=== PATIENT | female | born 1955 | race Caucasian/White ===

== ENCOUNTER 2024-07-11 14:22 | Outpatient (OUT) | payer OTHER, SELFPAY ==
--- NOTE | 2024-07-11 | XR_ITS ---
[address] [address] Patient Name: TRENTON DONOVAN MRN: [id number] date: 1955 Sex: F Assigned Patient Location: [facility] Current Patient Location: [facility] Accession/Order Number: [id number] Exam Date: 07/11/2024 15:00 Report Date: 07/11/2024 16:13 At the request of: WYATT DELGADO Procedure: XR DEXA axial skeleton EXAMINATION: XR DEXA axial skeleton HISTORY: Estrogen deficiency E28.39 COMPARISON: DEXA bone densitometry 07/24/2021 TECHNIQUE: Dual-energy X-ray absorptiometry (DXA) was performed. FINDINGS: SPINE ANALYSIS: Average bone mineral density is 1.432 g/cm2. T-score (standard deviation relative to young adult mean): 2.1 . -11.4% change since prior study. HIP ANALYSIS: Lowest bone mineral density is within the right femoral neck, 0.923 g/cm2. T-score (standard deviation relative to young adult mean): -0.8 . -1.1% change since prior study. XR/XR DEXA axial skeleton IMPRESSION: World Health Organization Classification: Normal - Low Fracture Risk FRAX: Cannot calculate. Pharmacologic treatment recommendations * No uniform recommendation applies to all patients. Management plans must be individualized. * Consider initiating pharmacologic treatment in postmenopausal women and men >= 50 years of age who have the following: Primary fracture prevention: * T-score <= - 2.5 at the femoral neck, total hip, lumbar spine, 33% radius (some uncertainty with existing data) by DXA. * Low bone mass (osteopenia: T-score between - 1.0 and - 2.5) at the femoral neck or total hip by DXA with a 10-year hip fracture risk >= 3% or a 10-year major osteoporosis-related fracture risk >= 20% (i.e., clinical vertebral, hip, forearm, or proximal humerus) based on the US-adapted FRAXregistered model. Secondary fracture prevention: * Fracture of the hip or vertebra regardless of BMD [4, 5]. * Fracture of proximal humerus, pelvis, or distal forearm in persons with low bone mass (osteopenia: T-score between - 1.0 and - 2.5). The decision to treat should be individualized in persons with a fracture of the proximal humerus, pelvis, or distal forearm who do not have osteopenia or low BMD [12, 13]. Tom MS, Bren SL, Camila KL, Micky EM, Jany KG, AJ, Nicolle ES. The clinician's guide to prevention and treatment of osteoporosis. Osteoporos Int. 2021;33(10):7142-9677. doi: 10.1007/y11763-584-39254-i. Epub 2021Mar 04. Erratum in: Osteoporos Int. 2021Jun 03;: PMID: [id number]; PMCID: [id number]. Electronically authenticated by: ILA POST Date: 07/11/2024 16:13
--- NOTE | 2024-07-11 | MM_ITS ---
Patient Name: TRENTON DONOVAN MR#: [id number] : 1955 Exam Date: 07/11/2024 Ordering Doctor: DR WYATT ZAYAS RADIOLOGY REPORT PROCEDURE: MM TOMOSYNTHESIS SCREENING BI COMPARISON: MG MAMM SCREEN 3D VICTORINA CAD, 07/24/2021. MG MAMM SCREEN VICTORINA W CAD, 04/22/2020. MG MAMM SCREEN VICTORINA W CAD, 10/19/2018. MG MAMM VICTORINA SCRN W CAD DIG, 02/27/2016. INDICATIONS: Encounter for screening mammogram for neoplasm of breast Calculator Name NCI Breast Cancer Risk Assessment Tool 5 Year Breast Cancer Risk 3.20% Lifetime Breast Cancer Risk 10.10% Personal Breast Cancer No Personal Ovarian Cancer No Treatments None Family Cancers Mother with breast cancer at age 81; Aunt-maternal with lung cancer at age 70; Aunt-maternal with colon cancer at age 80; Grandmother-paternal with bone cancer at age 80. LOCATION: [facility] BREAST COMPOSITION: The breasts are heterogeneously dense,which may obscure small masses. FINDINGS: DIAGNOSTIC CATEGORY 2--BENIGN FINDING: RIGHT BREAST: No significant suspicious finding. Scattered benign-appearing calcifications are present. No significant change has occurred. LEFT BREAST: No significant suspicious finding. Stable chronic asymmetry may anterior upper-outer quadrant. No significant change has occurred. RECOMMENDATIONS: ROUTINE MAMMOGRAM AND CLINICAL EVALUATION IN 12 MONTHS. PLEASE NOTE: A NORMAL MAMMOGRAM DOES NOT EXCLUDE THE POSSIBILITY OF BREAST CANCER. A CLINICALLY SUSPICIOUS PALPABLE LUMP SHOULD BE BIOPSIED. Dictated by: Christiano Johnson M.D. on 07/13/2024 at 14:28 Approved by: Christiano Johnson M.D. on 07/13/2024 at 14:39
== END 2024-07-11 14:23 | disposition home or self-care (01) ==
LOC: MAMMO 14:22
PROVIDERS: PCP Family Medicine; Visit Provider Physician Assistant
DX: Z12.31 Encounter for screening mammogram for malignant neoplasm of breast (principal); E28.39 Other primary ovarian failure; Z80.3 Family history of malignant neoplasm of breast; Z80.1 Family history of malignant neoplasm of trachea, bronchus and lung; Z80.0 Family history of malignant neoplasm of digestive organs; Z80.8 Family history of malignant neoplasm of other organs or systems
CPT/HCPCS: 77063; 77067; 77080

== ENCOUNTER 2024-09-03 14:24 | Outpatient (OUT) | payer OTHER, SELFPAY ==
--- NOTE | 2024-09-03 14:32 | MR_ITS ---
The [address] [address] Patient Name: TRENTON DONOVAN MRN: [id number] date: 1955 Sex: F Assigned Patient Location: MRI Current Patient Location: Accession/Order Number: [id number] Exam Date: 09/03/2024 14:45 Report Date: 09/05/2024 06:02 At the request of: NON-STAFF PHYSICIAN Procedure: MR knee LT wo con EXAMINATION: MR knee LT wo con HISTORY: Left Knee Pain COMPARISON: No relevant comparison available. TECHNIQUE: A complete multi-planar MRI was performed. FINDINGS: MEDIAL COMPARTMENT MEDIAL MENISCUS: Undersurface tear of the posterior horn. CARTILAGE: No visible defect. BONES: No marrow pathology, fracture, or significant arthropathy. MCL AND MEDIAL CAPSULE: Grade I sprain of the medial collateral ligament. LATERAL COMPARTMENT LATERAL MENISCUS: No visible tear or significant degeneration. CARTILAGE: No visible defect. BONES: No marrow pathology, fracture, or significant arthropathy. LCL/POSTEROLAT COMPLEX: Normal lateral collateral ligament, fascicles, lateral capsule and ligaments. ANTERIOR COMPARTMENT PATELLA: No marrow pathology, fracture, or significant arthropathy. CARTILAGE: No visible defect. TENDONS: Normal. EFFUSION: None. No synovitis or loose bodies. ACL: Normal appearing ligament. PCL: Normal appearing ligament. MENISCOFEMORAL: Normal meniscofemoral ligaments. OTHER: Negative. MR/MR knee LT wo con IMPRESSION: 1. Medial meniscus posterior horn undersurface tear. 2. Mild strain of the medial collateral ligament. Electronically authenticated by: ILA POST Date: 09/05/2024 06:02
== END 2024-09-03 14:25 | disposition home or self-care (01) ==
LOC: MRI 14:25
PROVIDERS: PCP Family Medicine
DX: M25.562 Pain in left knee (principal); S83.242A Other tear of medial meniscus, current injury, left knee, initial encounter; S83.412A Sprain of medial collateral ligament of left knee, initial encounter
CPT/HCPCS: 73721

== ENCOUNTER 2025-05-11 21:23 | Emergency (ER) | payer MEDICARE, SELFPAY ==
[2025-05-11] VITALS (14 sets, daily range): BP systolic 156–196; BP diastolic 80–104; PULSE 57–64; TEMP 37.2; O2SAT 93–96; BMI 32.0
--- NOTE | 2025-05-11 21:30 | ECG_ITS ---
[facility] Test Date: 2025-05-11 Pat Name: TRENTON DONOVAN Department: Room: - Gender: Female Ferry Captain: : 1955 Requested By: [id number] Order Number: [id number] Reading MD: ABBY FRENCH M.D. Measurements Intervals [place] Rate: 63 P: 54 [place]: 170 QRS: -21 QRSD: 78 T: 54 QT: 428 QTc: 435 Interpretive Statements 1100 Sinus rhythm 3113 Cannot rule out anterior myocardial infarction, probably old 8102 Low QRS voltage in chest leads 9150 abnormal ECG No previous ECG available for comparison Electronically Signed On 05-12-2025 17:34:04 EDT by ABBY FRENCH M.D.
--- OUTSIDE RECORDS SUMMARY | 2025-05-11 21:32 | XMS_ITS | Clinical Summary ---
Author Organization [facility] Address [address] [place] [address] Phone Care Team Providers Care Box Covering Machine Operator Name Role Phone Favian Wyatt MD Primary Care Provider [phone]- [phone] Allergies Active Allergy Reactions Criticality Noted Date Comments Aripiprazole Other 04/16/2023 Brexpiprazole Other 06/04/2021 Tardive Dyskinesia Nalbuphine Other 12/24/2003 Nubain Medications meloxicam (Mobic) 15 mg tabletIndication s:Left knee pain, unspecified chronicity Take 1 tablet (15 mg) by mouth once daily with breakfast. 30 tablet 2 08/16/2024 Active Active Problems No known active problems Social History Tobacco Use Types Packs/Day Years Used Date Smoking Tobacco: Unknown Tobacco Cessation:Counseling Given: Not Answered Comments Unknown Sex and Gender Information Value Date Recorded Sex Assigned at Not on file Legal Sex Female 2:12 AM EST Gender Identity Not on file Sexual Orientation Not on file Plan of Treatment Health Maintenance Due Date Last Done Comments CT Colonography 1955 Lipid Panel 1955 Medicare Annual Wellness Visit (AWV) 1955 Sigmoidoscopy 1955 Diabetes Screening 02/14/1974 Hepatitis C Screening 02/14/1974 FIT 08/31/2019 08/31/2018 Mammogram 07/24/2022 07/24/2021, 04/07, 04/22/2020 DTaP/Tdap/Td Vaccines (2 - Td or Tdap) 09/25/2022 09/25/2012 COVID-19 Vaccine ( season) 2024 04/14/2022, 10/05/2021, 09/03/2021 Colonoscopy 04/04/2025 04/04/2015 Influenza Vaccine (#1) 2025 , 08/24/2022, 10/26/2021, Additional history exists Colorectal Cancer Screening 05/31/2026 FIT-DNA (Cologuard) 05/31/2026 05/31/2023 RSV High Risk: (Elderly (60+) or Population) (1 - 1-dose 75+ series) 02/14/2031 Bone Density Scan Completed 06/11/2021 Zoster Vaccines Completed 03/11/2022, 11/06/2021 Pneumococcal Vaccine Completed 10/27/2023, 09/26/2018, 09/08/2017 HIB Vaccines Aged Out No longer eligi ble based on patient's age to complete this topic HPV Vaccines (No Doses Required) Completed Hepatitis A Vaccines Aged Out No long er eligible based on patient's age to complete this topic Hepatitis B Vaccines Aged Out No long er eligible based on patient's age to complete this topic IPV Vaccines Aged Out No longer eligi ble based on patient's age to complete this topic Meningococcal Vaccine Aged Out No felicitas yeni eligible based on patient's age to complete this topic Rotavirus Vaccines Aged Out No longer eligible based on patient's age to complete this topic [address] [place] [address] [employer] Diff[employer] Diff[employer] Care Teams Box Covering Machine Operator Relationship Specialty Start Date End Date Favian Wyatt MD [address] [address] PCP - General Family Medicine 08/16/24
--- OUTSIDE RECORDS SUMMARY | 2025-05-11 21:32 | XMS_ITS | Encounter Summary ---
Author Organization [facility] Address [address] [place] [address] Care Team Providers Care Equipment Maint Tech Name Role Phone Favian Wyatt MD Primary Care Provider [phone] Gena Steward MD Unavailable + [phone] Source Comments In the event this information is protected by the Federal Confidentiality of Alcohol and Drug AbusePatient Records regulations: The Federal rules restrict any use of the information to criminally investigate or prosecute any alcohol or drug abuse patient.[facility] Encounter Details Date Type Department Care Team (Late st Contact Info) Description 12/13/2023 Patient Msg Otolaryngology [address] [id number] Ulices Wells MD [address] [place] [address] Social History Tobacco Use Types Packs/Day Years Used Date Smoking Tobacco: Never Alcohol Use Standard Drinks/Week Comments Yes 0 (1 standard drink = 0.6 oz pur e alcohol) rarely Comments No Sex and Gender Information Value Date Recorded Sex Assigned at Not on file Legal Sex Female 9:11 AM EST Gender Identity Not on file Sexual Orientation Not on file 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
--- OUTSIDE RECORDS SUMMARY | 2025-05-11 21:32 | XMS_ITS | Encounter Summary ---
Author Organization [facility] Address [address] [place] [address] Care Team Providers Care Equipment Mechanic Name Role Phone Favian Wyatt MD Unavailable Favian Wyatt MD Primary Care Provider [phone] Favian Wyatt MD Unavailable Tiana Earl RN Unavailable Keyla Fabian LPN Unavailable Encounter Details Date Type Department Care Team (Late st Contact Info) Description 06/01/2023 Abstract [facility] [address] [facility] [address] [place] [address] Favian Wyatt MD 112 [facility] [address] [place], [place] [id number] Social History Tobacco Use Types Packs/Day Years Used Date Smoking Tobacco: Never Smokeless Tobacco: Never Alcohol Use Standard Drinks/Week Comments Never 0 (1 standard drink = 0.6 oz pure alcohol) Caffeine intake: more than 4 cups per day coffee, soda PHQ-2 Answer Date Recorded Patient Health Questionnaire-2 Score 2 05/24/2023 Comments Unknown Sex and Gender Information Value Date Recorded Sex Assigned at Not on file Legal Sex Female 6:40 PM EDT Gender Identity Not on file Sexual Orientation Not on file documented as of this encounter Plan of Treatment Upcoming Encounters Date Type Department Care Team (Late Contact Info) Description 08/05/2025 3:30 PM EDT Office Visit [facility] [address] [facility] [address] [place] [address] Favian Wyatt MD [address] [facility] [address] [place] [address] documented as of this encounter Visit Diagnoses Not on filedocumented in this encounter Additional Health Concerns Assessment Noted Time PHQ-9 Depression Total Score: 12 05/24/ 023 3:58 PM EDT documented as of this encounter Care Teams Equipment Mechanic Relationship Specialty Start Date End Date Favian Wyatt MD [address] [facility] [address] [place] [address] PCP - Kiara DIAZ 11/07/21 11/06/23 Favian Wyatt MD [address] [facility] [address] [place] [address] PCP - General Family Medicine 04/22/23 Favian Wyatt MD [address] [facility] [address] [place] [address] PCP - Devoted 11/07/23 11/06/24 Tiana Earl, RN [address] [place] [address] Clinical Advocate Family Medicine 12/14/24 01/25/25 Keyla Fabian LPN [address] [facility] [address] [place] [address] 01/25/25 documented as of this encounter
--- OUTSIDE RECORDS SUMMARY | 2025-05-11 21:32 | XMS_ITS | Clinical Summary ---
Author Organization [facility] Address [address] [place] [address] Care Team Providers Care Animated Cartoons Painter Name Role Phone Favian Wyatt MD Primary Care Provider [phone]- [phone] Gena Steward MD Unavailable [phone] Allergies Active Allergy Reactions Criticality Noted Date Comments Nalbuphine 12/24/2003 Nubain shrimp [Other] 02/23/2005 nausea vomiting Medications SYNTHROID 137MCG TABLET Take one(1) tablet daily. 30 3 12/24/2003 Active PREMARIN 1.25MG TABLET Take one(1) tablet daily. 30 3 12/24/2003 Active CALCIUM + D TABLET Take one(1) tablet two(2) times daily. 0 0 12/24/2003 Active MULTIVITAMIN ORAL TAB Take one(1) tablet daily. 0 01/19/2005 Active EFFEXOR XR 75 MG ORAL CP24 Take one(1) tablet two(2) times daily. 0 01/19/2005 Active STOOL SOFTENER 100 MG ORAL CAP 0 01/19/2005 Act rajni WELLBUTRIN SR 150 MG ORAL TBSR Take one(1) tablet two(2) times daily. 0 01/19/2005 Active SEROQUEL 25 MG ORAL TAB Take one(1) tablet daily at bedtime. 0 0 02/23/2005 Active TOPROL XL 50 MG ORAL TB24 1 1/2 tablets twice daily 0 0 02/23/2005 Active Active Problems Problem Noted Date Diagnosed Date Incomplete bladder emptying 03/11/2005 Female stress incontinence 03/11/2005 Family History Medical History Relation Comments Thyroid Daughter Graves' disease. Ischemic Heart Disease Father Thyroid Father Hypothyroidism Diabetes Mother DM-2 Ischemic Heart Disease Mother Thyroid Sister Thyroglossal cys t Relation Status Comments Daughter Father Mother Sister Social History Tobacco Use Types Packs/Day Years [...] file Not on file Not on file Last Filed Vital Signs Vital Sign Reading Time Taken Comments Blood Pressure 120/72 01/19/2005 2:02 PM EST Pulse 84 12/24/2003 4:00 PM EST Temperature 37.2 C (98.9 F) 01/19/2005 2:02 PM EST Respiratory Rate - - Oxygen Saturation - - Inhaled Oxygen Concentration - - Weight 74.8 kg (165 lb) 01/19/2005 2:02 PM EST Height 160 cm (5' 3 ) 01/19/2005 2:02 PM EST Body Mass Index 29.23 01/19/2005 2:02 PM EST Plan of Treatment Health Maintenance Due Date Last Done Comments Anxiety Screening 02/14/1974 Depression Screening 02/14/1974 Hepatitis C Screening 02/14/1974 DTaP,Tdap,Td Vaccine (1 - Tdap) 02/14/[address] Colonography 02/14/2001 Cologuard (FIT-DNA) 02/14/2001 Colonoscopy 02/14/2001 Colorectal Cancer Screening 02/14/2001 Fecal Occult Blood 02/14/2001 Lipid Screening 02/14/2001 Sigmoidoscopy 02/14/2001 Pneumococcal Vaccine: 50+ (1 of 1 - PCV) 02/14/2006 Shingrix Vaccine (1 of 2) 02/14/2006 Diabetes Screening 03/09/2008 03/09/2005 Bone Density Screening 02/14/2021 Covid-19 Vaccine ( - 2023- season) 2024 Advance Directive Discussion 11/07/2024 Influenza Vaccine (#1) 2025 RSV Vaccine (1 - 1-dose 75+ series) 02/14/2031 Procedures Procedure Name Priority Date/Time Associated Diagnosis Comments BASIC METABOLIC PANEL 03/09/2005 12:56 PM EDT from Last 3 Months or Most Recently Relevant to Health Maintenance Results * BASIC METABOLIC PNL (03/09/2005 12:56 PM EDT) Glucose 77 65 - 100 mg/dL [facility] BUN 13 8 - 25 mg/dL [facility] Creatinine 0.8 0.7 - 1.4 mg/dL [facility] Sodium 140 132 - 148 mmol/L [facility] Potassium 3.7 3.5 - 5.0 mmol/L [facility] Chloride 103 98 - 110 mmol/L [facility] CO2 26 23 - 32 mmol/L [facility] Anion Gap 11 0 - 15 mmol/L [facility] Calcium 9.2 8.5 - 10.5 mg/dL [facility] 03/09/2005 12:5 6 PM EDT us Ponce Rod MD LABORATORY Final Resul t [facility] [address] [place] [address] from Last 3 Months or Most Recently Relevant to Health Maintenance Insurance [facility] Care Teams Animated Cartoons Painter Relationship Specialty Start Date End Date Favian Wyatt MD [address] [facility] [address] [place] [address] PCP - General Family Medicine 06/22/18 Gena Steward MD [address] [place] [address] Referring Ent - Otolaryngology 11/17/23
--- OUTSIDE RECORDS SUMMARY | 2025-05-11 21:32 | XMS_ITS | Encounter Summary ---
Author Organization [facility] Address [address] [place] [address] Phone Care Team Providers Care Cutting Room Supervisor Name Role Phone Favian Wyatt MD Primary Care Provider [phone] Encounter Details Date Type Department Care Team ([facility] st Contact Info) Description 11/06/2024 Community Care Management [address] [address] [facility] PhysicianMD [address] [place], [place] [id number] Social History Tobacco Use Types Packs/Day Years Used Date Smoking Tobacco: Unknown Comments Unknown Sex and Gender Information Value Date Recorded Sex Assigned at Not on file Legal Sex Female 2:12 AM EST Gender Identity Not on file Sexual Orientation Not on file COVID-19 Exposure Response Date Recorded In the last 10 days, have yo u been in contact with someone who was confirmed or suspected to have Coronavirus/COVID-19? No / Unsure 10/11/2024 2:01 PM EST documented as of this encounter Plan of Treatment Not on file documented as of this encounter Visit Diagnoses Not on filedocumented in this encounter Care Teams Cutting Room Supervisor Relationship Specialty Start Date End Date Favian Wyatt MD [address] [facility] [address] [place] [address] PCP - General Family Medicine 08/16/24 documented as of this encounter
--- OUTSIDE RECORDS SUMMARY | 2025-05-11 21:32 | XMS_ITS | Encounter Summary ---
Author Organization [facility] Address [address] [place] [address] Care Team Providers Care Audiometrist Name Role Phone Favian Wyatt MD Primary Care Provider [phone] Tiana Earl RN Unavailable [phone] Keyla Fabian LPN Unavailable Encounter Details Date Type Department Care Team (Late st Contact Info) Description 11/30/2024 Abstract [facility] 112 [facility] 110 [place] [address] Favian Wyatt MD [address] [place] [facility] 110 [place] [address] Social History Tobacco Use Types Packs/Day Years Used Date Smoking Tobacco: Never Smokeless Tobacco: Never Alcohol Use Standard Drinks/Week Comments Never 0 (1 standard drink = 0.6 oz pure alcohol) Caffeine intake: more than 4 cups per day coffee, soda B1300 Health Literacy Answer Date Recor ded How often do you need to hav e someone help you when you read instructions, pamphlets, or other written material from your doctor or pharmacy? Never 05/17/2024 Humiliation, Afraid, Rape, and Kick questionnair e Answer Date Recorded Within the last year, have y ou been afraid of your partner or ex-partner? No 05/17/2024 Within the last year, have y ou been humiliated or emotionally abused in other ways by your partner or ex-partner? No Within the last year, have y ou been kicked, hit, slapped, or otherwise physically hurt by your partner or ex-partner? No 05/17/2024 Within the last year, have y ou been raped or forced to have any kind of sexual activity by your partner or ex-partner? No 05/17/2024 Social Connection and Isolation Panel [NHANES] A nswer Date Recorded Frequency of Communication with Friends and Fami ly Not on file 05/17/2024 Frequency of Social Gatherings with Friends and Family Not on file 05/17/2024 Attends Hoahaoism Services Not on file 05/17 Active Member of Clubs or Organizations Not on f ile 05/17/2024 Attends Club or Organization Meetings Not on hina e 05/17/2024 Are you , , di vorced, , never , or living with a partner? 05/17/2024 Overall Financial Resource Strain (CARDIA) Answe r Date Recorded How hard is it for you to pa y for the very basics like food, housing, medical care, and heating? Not hard at all 05/17/2024 PHQ-2 Answer Date Recorded Patient Health Questionnaire-2 Score 0 06/27/2024 [facility] - Occupational Stress Questionnaire Answer Date Recorded Do you feel stress - tense, restless, nervous, or anxious, or unable to sleep at night because your mind is troubled all the time - these days? Not at all 05/17/2024 Exercise Vital Sign Answer Date Recorde d On average, how many days pe r week do you engage in moderate to strenuous exercise (like a brisk walk)? 7 days 05/17/2024 On average, how many minutes do you engage in exercise at this level? 20 min 05/17/2024 Hunger Vital Sign Answer Date Recorded Within the past 12 months, y ou worried that your food would run out before you got the money to buy more. Never true 05/17/20 24 Within the past 12 months, t he food you bought just didn't last and you didn't have money to get more. Never true 05/17/2024 PRAPARE - Transportation Answer Date Re corded In the past 12 months, has l ack of transportation kept you from medical appointments or from getting medications? No 05/07 In the past 12 months, has l ack of transportation kept you from meetings, work, or from getting things needed for daily living? No 05/17/2024 Housing Stability Vital Sign Answer Adelfo e Recorded In the last 12 months, was t here a time when you were not able to pay the mortgage or rent on time? No 05/17/2024 In the past 12 months, how m any times have you moved where you were living? 1 05/17/2024 At any time in the past 12 m [facility], were you homeless or living in a correction (including now)? No 05/17/2024 Comments Unknown Sex and Gender Information Value Date Recorded Sex Assigned at Not on file Legal Sex Female 6:40 PM EDT Gender Identity Not on file Sexual Orientation Not on file Occupation Industry Job Start Date Job End Date Not on file Not on file Not on file Not on file documented as of this encounter Plan of Treatment Upcoming Encounters Date Type Department Care Team (Late st Contact Info) Description 08/05/2025 3:30 PM EDT Office Visit [facility] [address] [facility] [address] [place] [address] Favian Wyatt MD [address] [facility] 110 [place] [address] documented as of this encounter Visit Diagnoses Not on filedocumented in this encounter Additional Health Concerns Assessment Noted Time PHQ-9 Depression Total Score: 0 06/27/20 24 2:00 PM EDT documented as of this encounter Care Teams Audiometrist Relationship Specialty Start Date End Date Favian Wyatt MD [address] [facility] 110 [place] [address] PCP - General Family Medicine 04/22/23 Tiana Earl, CHUY [address] [place] [address] Clinical Advocate Family Medicine 12/14/24 01/25/25 Keyla Fabian LPN [address] [facility] [address] [place] [address] 01/25/25 documented as of this encounter
--- OUTSIDE RECORDS SUMMARY | 2025-05-11 21:32 | XMS_ITS | Encounter Summary ---
Author Organization [facility] Address [address] [place] [address] Care Team Providers Care Billing Rep Name Role Phone Jake Lopez Primary Care Provider [phone] Favian Wyatt MD Primary Care Provider [phone] Gena Steward MD Unavailable + [phone] Source Comments In the event this information is protected by the Federal Confidentiality of Alcohol and Drug AbusePatient Records regulations: The Federal rules restrict any use of the information to criminally investigate or prosecute any alcohol or drug abuse patient.[facility] Encounter Details Date Type Department Care Team (Latest Contact Info) Description 02/21/2005 Prob Sum Review Provider, Ccf Social History Tobacco Use Types Packs/Day Years [...] on filedocumented in this encounter Care Teams Billing Rep Relationship Specialty Start Date End Date Jake Lopez [address] [facility] [place] [address] [place] [address] PCP - General 10/24/03 06/21/18 Favian Wyatt MD [address] [place] [address] [place], [place] [id number] PCP - General Family Medicine 06/22/18 Gena Steward MD [address] [facility] [address] [place] [address] Referring Ent - Otolaryngology 11/17/23 documented as of this encounter
--- OUTSIDE RECORDS SUMMARY | 2025-05-11 21:32 | XMS_ITS | Encounter Summary ---
Author Organization [facility] Address [address] [place] [address] Care Team Providers Care Injection Specialist Name Role Phone Favian Wyatt MD Primary Care Provider [phone] Favian Wyatt MD Unavailable Tiana Earl RN Unavailable Keyla Fabian LPN Unavailable Encounter Details Date Type Department Care Team (Late st Contact Info) Description 07/04/2024 Abstract [facility] [address] [facility] 110 [place] [address] Favian Wyatt MD [address] [facility] 110 [place], [place] [phone] Social History Tobacco Use Types Packs/Day Years [...] and Family Not on file 05/17/2024 Attends [employer] Not on file 05/17 Active Member [...] Recorded Patient Health Questionnaire-2 Score 0 06/27/2024 [facility] - Occupational Stress [...] any time in the past 12 m [facility], were you homeless or living in a jail (including now)? No 05/17/2024 Comments Unknown Sex [...] 08/05/2025 3:30 PM EDT Office Visit [facility] [address] [facility] 110 [place] [address] Favian Wyatt MD [address] [facility] 110 [place] [address] documented as of this encounter Visit Diagnoses Not on filedocumented in this encounter Additional Health Concerns Assessment Noted Time PHQ-9 Depression Total Score: 0 06/27/20 24 2:00 PM EDT documented as of this encounter Care Teams Injection Specialist Relationship Specialty Start Date End Date Favian Wyatt MD [address] [facility] [address] [place] [address] PCP - General Family Medicine 04/22/23 Favian Wyatt MD [address] [facility] [address] [place] [address] PCP - Devoted 11/07/23 11/06/24 Tiana Earl RN [address] [place], [place] [id number] Clinical Advocate Family Medicine 12/14/24 01/25/25 Keyla Fabian LPN 112 [facility] 110 [place] [address] 01/25/25 documented as of this encounter
--- OUTSIDE RECORDS SUMMARY | 2025-05-11 21:32 | XMS_ITS | Encounter Summary ---
Author Organization [facility] Address [address] [place] [address] Care Team Providers Care Getter Filler Name Role Phone Favian Riggins MD Primary Care Provider [phone] Favian Riggins MD Unavailable Tiana Earl RN Unavailable [phone] Keyla Fabian LPN Unavailable Encounter Details Date Type Department Care Team (Late st Contact Info) Description 07/11/2024 Clinisync Result Encounter [facility] External Department Unsolicited Mattie Lim, PA [address] [facility] [address] [place] [address] Social History Tobacco Use Types Packs/Day Years [...] and Family Not on file 05/17/2024 Attends [employer] Not on file 05/17 Active Member [...] Recorded Patient Health Questionnaire-2 Score 0 06/27/2024 [facility] - Occupational Stress Questionnaire Answer Date Recorded [...] any time in the past 12 m [facility], were you homeless or living in a [facility] (including now)? No 05/17/2024 Comments Unknown Sex [...] 08/05/2025 3:30 PM EDT Office Visit [facility] [address] [facility] 110 [place] [address] Favian Riggins MD 112 [facility] 110 [place] [address] documented as of this encounter Procedures Procedure Name Priority Date/Time Associated Diagnosis Comments XR DEXA AXIAL SKELETON 07/11/2024 4:13 PM EDT documented in this encounter Results * XR DEXA AXIAL SKELETON (07/11/2024 4:13 PM EDT) Anatomical Region Laterality Modality Other 07/11/2024 4:13 PM EDT Narrative 07/11/2024 4:16 PM EDT The [address] [address] XRay Report Signed Patient: BETTYE MUSE MR#: [id number] : 1955 Acct:[id number] Age/Sex: 69 / F ADM Date: 07/11/24 Loc: [facility] Attending Dr: MATTIE LIM Ordering Physician: MATTIE LIM Date of Service: 07/11/24 Procedure(s): XR DEXA axial skeleton Accession Number(s): [id number] cc: FAVIAN RIGGINS ; MATTIE LIM [place] [address] Patient Name: BETTYE MUSE MRN: [id number] date: 1955 Sex: F Assigned Patient Location: [facility] Current Patient Location: [facility] Accession/Order Number: [id number] Exam Date: 07/11/2024 15:00 Report Date: 07/11/2024 16:13 At the request of: MATTIE LIM Procedure: XR DEXA axial skeleton EXAMINATION: XR DEXA axial skeleton HISTORY: Estrogen deficiency E28.39 COMPARISON: DEXA bone densitometry 07/24/2021 TECHNIQUE: Dual-energy X-ray absorptiometry (DXA) was performed. FINDINGS: SPINE ANALYSIS: Average bone mineral density is 1.432 g/cm2. T-score (standard deviation relative to young adult mean): 2.1 . -11.4% change since prior study. HIP ANALYSIS: Lowest bone mineral density is within the right femoral neck, 0.923 g/cm2. T-score (standard deviation relative to young adult mean): -0.8 . -1.1% change since prior study. XR/XR DEXA axial skeleton IMPRESSION: World Health Organization Classification: Normal - Low Fracture Risk FRAX: Cannot calculate. Pharmacologic treatment recommendations * No uniform recommendation applies to all patients. Management plans must be individualized. * Consider initiating pharmacologic treatment in postmenopausal women and men >= 50 years of age who have the following: Primary fracture prevention: * T-score <= - 2.5 at the femoral neck, total hip, lumbar spine, 33% radius (some uncertainty with existing data) by DXA. * Low bone mass (osteopenia: T-score between - 1.0 and - 2.5) at the femoral neck or total hip by DXA with a 10-year hip fracture risk >= 3% or a 10-year major osteoporosis-related fracture risk >= 20% (i.e., clinical vertebral, hip, forearm, or proximal humerus) based on the US-adapted FRAXregistered model. Secondary fracture prevention: * Fracture of the hip or vertebra regardless of BMD [4, 5]. * Fracture of proximal humerus, pelvis, or distal forearm in persons with low bone mass (osteopenia: T-score between - 1.0 and - 2.5). The decision to treat should be individualized in persons with a fracture of the proximal humerus, pelvis, or distal forearm who do not have osteopenia or low BMD [12, 13]. Tom MS, Bren SL, Camila KL, Micky EM, Jany KG, AJ, Nicolle ES. The clinician's guide to prevention and treatment of osteoporosis. Osteoporos Int. 2021;3310):1303-2084. doi: 10.1007/s31045-977-34433-x. Epub 2021Mar 04. Erratum in: Osteoporos Int. 2021Jun 03;: PMID: 50451723; PMCID: [id number]. Electronically authenticated by: CHRISTIANO JOHNSON Date: 07/11/2024 16:13 Dictated By: Christiano Johnson M.D. Signed By: 07/11/241615 DD/ 161 TD/TT: Garnett Machine Operator: Procedure Note Radiology, Radiologist, MD - 07/11/2024 The [place] [id number] XRay Report Signed Patient: BETTYE MUSE LMR#: [id number] : 1955cct:[id number] Age/Sex: 69 / FADM Date: 07/11/24 Loc: [facility] Attending Dr: MATTIE LIM Ordering Physician: MATTIE LIM Date of Service: 07/11/24 Procedure(s): XR DEXA axial skeleton Accession Number(s): [id number] cc: FAVIAN RIGGINS KAREN M [address] [address] Patient Name: BETTYE MUSE MRN: [id number] date: 1955 Sex: F Assigned Patient Location: [facility]MO Current Patient Location: [facility] Accession/Order Number: [id number] Exam Date: 07/11/2024 15:00 Report Date: 07/11/2024 16:13 At the request of: MATTIE LIM Procedure: XR DEXA axial skeleton EXAMINATION: XR DEXA axial skeleton HISTORY: Estrogen deficiency E28.39 COMPARISON: DEXA bone densitometry 07/24/2021 TECHNIQUE: Dual-energy X-ray absorptiometry (DXA) was performed. FINDINGS: SPINE ANALYSIS: Average bone mineral density is 1.432 g/cm2. T-score (standard deviation relative to young adult mean): 2.1 . -11.4% change since prior study. HIP ANALYSIS: Lowest bone mineral density is within the right femoral neck, 0.923 g/cm2. T-score (standard deviation relative to young adult mean): -0.8 . -1.1% change since prior study. XR/XR DEXA axial skeleton IMPRESSION: World Health Organization Classification: Normal - Low Fracture Risk FRAX: Cannot calculate. Pharmacologic treatment recommendations * No uniform recommendation applies to all patients. Management plans mustbe individualized. * Consider initiating pharmacologic treatment in postmenopausal women andmen >= 50 years of age who have the following: Primary fracture prevention: * T-score <= - 2.5 at the femoral neck, total hip, lumbar spine, 33%radius (some uncertainty with existing data) by DXA. * Low bone mass (osteopenia: T-score between - 1.0 and - 2.5) at thefemoral neck or total hip by DXA with a 10-year hip fracture risk >= 3% or y34-[id number] major osteoporosis-related fracture risk >= 20% (i.e., clinical vertebral, hip, forearm, or proximal humerus) based on the [place]-adapted FRAXregisteredmodel. Secondary fracture prevention: * Fracture of the hip or vertebra regardless of BMD [4, 5]. * Fracture of proximal humerus, pelvis, or distal forearm in persons withlow bone mass (osteopenia: T-score between - 1.0 and - 2.5). The decision totreat should be individualized in persons with a fracture of the proximalhumerus, pelvis, or distal forearm who do not have osteopenia or low BMD [12, 13]. Tom MS, Bren SL, Camila KL, Micky EM, Jany KG, AJ,Nicolle ES. The clinician's guide to prevention and treatment of osteoporosis.Osteoporos Int. 2021;33(10):9102-8001. doi: 10.1007/x76186-043-94311-r. Ep. Erratum in: Osteoporos Int. 2021Jun 03;: PMID: 67150951; PMCID: [id number]. Electronically authenticated by: CHRISTIANO JOHNSON Date: 07/11/2024 16:13 Dictated By: Christiano Johnson M.D. Signed By:07/11/24 1616 DD/ 12 TD/TT: Garnett Machine Operator: us Mattie [facility] Final Result documented in this encounter Visit Diagnoses Not on filedocumented in this encounter Additional Health Concerns Assessment Noted Time PHQ-9 Depression Total Score: 0 06/27/20 24 2:00 PM EDT documented as of this encounter Care Teams Getter Filler Relationship Specialty Start Date End Date Favian Riggins MD [address] [address] PCP - General Family Medicine 04/22/23 Favian iRggins MD [address] [facility] [address] [place] [address] PCP - Devoted 11/07/23 11/06/24 Tiana Earl, CHUY [address] [place] [address] Clinical Advocate Family Medicine 12/14/24 01/25/25 Keyla Fabian LPN [address] [facility] [address] [place] [address] 01/25/25 documented as of this encounter
--- OUTSIDE RECORDS SUMMARY | 2025-05-11 21:32 | XMS_ITS | Encounter Summary ---
Author Organization [facility] Address [address] [facility] [place] [address] Care Team Providers Care Milliner Helper Name Role Phone Favian Wyatt MD Unavailable Favian Wyatt MD Primary Care Provider [phone] Favian Wyatt MD Unavailable Tiana Earl RN Unavailable [phone] Keyla Fabian LPN Unavailable Encounter Details Date Type Department Care Team (Late st Contact Info) Description 06/09/2023 Orders Only [facility] [address] [facility] [address] [place] [phone] A, Unknown Practice [address] [place], [place] [address] Social History Tobacco Use Types Packs/Day Years [...] 08/05/2025 3:30 PM EDT Office Visit [facility] [address] [place] [address] [place] [address] Favian Wyatt MD [address] [place] [address] [place] [address] documented as of this encounter Procedures Procedure Name Priority Date/Time Associated Diagnosis Comments LAB COLOGUARD COLON CANCER SCREEN Routine 06/09/2023 8:55 AM EDT documented in this encounter Results * Cologuard® colon cancer screening (06/09/2023 8:55 AM EDT) Stool us Unknown Practice A LAB MOLECULAR DIAGNOSTICS ORD ERABLES Final Result documented in this encounter Visit Diagnoses Not on filedocumented in this encounter Additional Health Concerns Assessment Noted Time PHQ-9 Depression Total Score: 12 05/24/ 023 3:58 PM EDT documented as of this encounter Care Teams Milliner Helper Relationship Specialty Start Date End Date Favian Wyatt MD [address] [facility] [address] [place] [address] PCP - Kiara DIAZ 11/07/21 11/06/23 Favian Wyatt MD [address] [facility] [address] [place] [address] PCP - General Family Medicine 04/22/23 Favian Wyatt MD [address] [facility] [address] [place] [address] PCP - Devoted 11/07/23 11/06/24 Tiana Earl, RN [address] [place] [address] Clinical Advocate Family Medicine 12/14/24 01/25/25 Keyla Fabian LPN [address] [facility] [address] [place] [address] 01/25/25 documented as of this encounter
--- OUTSIDE RECORDS SUMMARY | 2025-05-11 21:32 | XMS_ITS | Clinical Summary ---
Author Organization [facility] Address [address] [place] [address] Care Team Providers Care Ror Engineer Name Role Phone Favian Riggins MD Primary Care Provider [phone] Keyla Fabian LPN Unavailable Allergies Active Allergy Reactions Criticality Noted Date Comments Aripiprazole 04/16/2023 Brexpiprazole 06/04/2021 Other Reaction(s): Other Tardive Dyskinesia Nalbuphine 04/16/2023 Shellfish-Derived Products 3 Shrimp Extract 05/08/2024 Other Reaction(s): Not available Medications traZODone (Desyrel) 50 MG tablet Take 50 mg by mouth at bedtime. 2 Active venlafaxine XR (Effexor XR) 150 MG 24 hr capsule Take 2 capsules by mouth in the morning and 2 capsules before bedtime. 3 Active Ingrezza 80 MG capsule Take 80 mg by mouth in the morning. 3 Active lamoTRIgine (LaMICtal) 150 MG tablet Take 150 mg by mouth in the morning. 3 Active Biotin 1000 MCG chewable tablet Chew Daily. Ac tive cholecalciferol (Vitamin D-3) 125 MCG (5000 UT) capsule Take 5,000 Units by mouth Daily Active metFORMIN (Glucophage) 500 MG tabletIndications :Type 2 diabetes mellitus without complication, without long-term current use of insulin (HCC) TAKE 1 TABLET BY MOUTH IN THE MORNING with BREAKFAST 100 tablet 3 4 Active ciclopirox (Loprox) 0.77 % creamIndications: Other seborrheic dermatitis Apply thin layer to affected area once a day, 30 day supply 90 g 11 4 Active atorvastatin (Lipitor) 20 MG tabletIndications :Pure hypercholesterole danielal, unspecified TAKE 1 TABLET BY MOUTH DAILY 100 tablet 3 4 Active losartan (Cozaar) 100 MG tabletIndications :Essential (primary) hypertension TAKE 1 TABLET BY MOUTH DAILY 100 tablet 3 4 Active atenolol (Tenormin) 50 MG tabletIndications :Palpitations TAKE 1 TABLET BY MOUTH IN THE MORNING 100 tablet 3 5 Active thyroid (Eminence Thyroid) 90 MG tabletIndications :Hypothyroidism, unspecified Take 1 tablet (90 mg) by mouth Daily 5 02/01/20 26 Active dapagliflozin (Farxiga) 5 MGIndications:IGT (impaired glucose tolerance) Take 1 tablet (5 mg) by mouth Daily 100 tablet 3 5 Active Active Problems Problem Noted Date Diagnosed Date Chronic idiopathic constipation 01/11/2025 Dysphagia 01/11/2025 Gait instability 01/11/2025 Involuntary movements 01/11/2025 Parkinsonism 01/11/2025 Class 1 obesity due to exces s calories with serious comorbidity and body mass index (BMI) of 31.0 to 31.9 in adult 06/27/2024 Type 2 diabetes mellitus wit h diabetic chronic kidney disease 05/08/2024 Assessment & Plan (01/31/2025 3:33 PM EDT): No Tobacco use Follow ADA 1800 diet low carbohydrate Continue Med Compliance Goal LDL less than 100 Goal BP 130/80 Goal HgbA1c < 7.0% Monitor Feet, monitor for infection Needs Exercise Yearly eye exams Prior to your visit today we reviewed your chart and outlined testing and treatment needed for your care. Reviewed poissble complications of diabetes including, loss of vision, kidney failure and increased risk of heart attacks and stroke. We made recommendations on how to control your blood sugars, and minimize your risk of these complications. We discussed your current barriers to a healthy living and importance of healthy diet and exercise. Assessment & Plan (05/08/2024 3:10 PM EDT): No Tobacco use Follow ADA 1800 diet low carbohydrate Continue Med Compliance Goal LDL less than 100 Goal BP 130/80 Goal HgbA1c < 7.0% Monitor Feet, monitor for infection Needs Exercise Yearly eye exams Prior to your visit today we reviewed your chart and outlined testing and treatment needed for your care. Reviewed poissble complications of diabetes including, loss of vision, kidney failure and increased risk of heart attacks and stroke. We made recommendations on how to control your blood sugars, and minimize your risk of these complications. We discussed your current barriers to a healthy living and importance of healthy diet and exercise. Tardive dyskinesia 03/14/2024 Assessment & Plan (05/08/2024 3:15 PM EDT): On Yarelisezza a few years Sees Dr.Travis Rasmussen of face 10/03/2023 Assessment & Plan (10/03/2023 2:55 PM EST): Try Selsun Blue Or try OTC HC H/O herpes zoster 05/11/2023 IGT (impaired glucose tolerance) 05/11/2023 H/O total hysterectomy 05/11/2023 Hypercholesteremia 05/11/2023 Microalbuminuria 05/11/2023 Microalbuminuric diabetic nephropathy 05/11/2023 Assessment & Plan (01/31/2025 3:34 PM EDT): Increase fluids Sensorineural hearing loss, bilateral 04/25/2023 Bilateral tinnitus 04/25/2023 Dizziness 04/16/2023 Postmenopausal atrophic vaginitis 11/11/2020 Chronic kidney disease, stage 3a 08/18/2020 Assessment & Plan (01/31/2025 3:33 PM EDT): Resolved, improved with GFR 69 Assessment & Plan (05/08/2024 3:12 PM EDT): Avoid Ibuprofen On Farxiga Assessment & Plan (10/03/2023 2:47 PM EST): Stable and improved, continue hydration Dyspnea 11/21/2018 Fibromyalgia 06/01/2018 Essential hypertension 02/09/2016 Assessment & Plan (01/31/2025 3:33 PM EDT): Our specific goals, for your hypertension, is to keep your blood pressure less than 140/90, and the importance of weight control. We made recommendations on how to control your blood pressure, and minimize your risk of these copmplications. We also discussed your current barriers to a healthy living and importance of healthy diet and exercise. Prior to your visit today we have reviewed your chart and formed a plan to assist with providing you the best possible care. We reviewed the possible complications of hypertension including, stroke, heart failure and kidney impairment. In addition, we discussed your medications, the importance of taking them as prescribed. DASH diet handouts Assessment & Plan (10/03/2023 2:43 PM EST): Our specific goals, for your hypertension, is to keep your blood pressure less than 140/90, and the importance of weight control. We made recommendations on how to control your blood pressure, and minimize your risk of these copmplications. We also discussed your current barriers to a healthy living and importance of healthy diet and exercise. Prior to your visit today we have reviewed your chart and formed a plan to assist with providing you the best possible care. We reviewed the possible complications of hypertension including, stroke, heart failure and kidney impairment. In addition, we discussed your medications, the importance of taking them as prescribed. DASH diet handouts Decreased estrogen level 02/09/2016 Hypothyroid 02/09/2016 Assessment & Plan (01/31/2025 3:36 PM EDT): Increase dose Palpitations 02/09/2016 Posttraumatic stress disorder 02/09/2016 Major depressive disorder, recurrent, moderate 1 11/30/2014 Assessment & Plan (01/31/2025 3:34 PM EDT): In remission Assessment & Plan (05/08/2024 3:09 PM EDT): This is a chronic medical condition that is stable since last assessment. No changes in treatment are suggested at this time. Continue Current meds. Generalized anxiety disorder 09/30/2015 Noncompliance with treatment 09/30/2015 Resolved Problems Problem Noted Date Diagnosed Date Resolved Date Tinnitus, subjective 04/16/2023 07/18/2 023 Encounters Date Type Department Care Team Description 04/11/2025 Orders Only [facility] [address] [facility] [address] [place] [phone] Mary Lou Alarcon LPN Estrogen deficiency; Encounter for screening mammogram for malignant neoplasm of breast 02/26/2025 Refill [facility] [address] [facility] [address] [place] [phone] Tiana Chavez MA IGT (impaired glucose tolerance) 02/25/2025 Abstract [facility] [address] [facility] [address] [place] [phone] Favian Riggins MD 02/22/2025 External Result Encounter [facility] Department Unsolicited Provider, Generic External Data 02/12/2025 Patient Outreach [facility] [address] [place] [phone] Keyla Fabian LPN from Last 3 Months Immunizations Immunization Administration Dates Next Due Influenza, High-dose Seasona l, Quadrivalent, Preservative Free 10/03/2023,08/24/2022 Influenza, injectable, MDCK, preservative free, quadrivalent 10/26/2021 Influenza, injectable, quadr ivalent, preservative free 08/18/2020 Influenza, seasonal, injecta ble, preservative free 08/22/2016,08/22/2015 Influenza, seasonal, intrade rmal, preservative free 08/09/2019,09/26/2018,09/08/2017,09/11 Moderna SARS-CoV-2 Vaccination 09/03/2021 Pneumococcal Conjugate PCV 13 09/26/2018 Pneumococcal Polysaccharide PPSV23 10/27/2023, Tdap 09/25/2012 Zoster, Recombinant 03/11/2022,11/06/2021 Family History Medical History Relation Name Comments Bipolar disorder Granddaughter Diabetes Maternal Grandmother Lady Vladimir Cancer Mother Isabel Reyes Diabetes Mother Isabel Reyes Relation Name Status Comments Daughter Alive Father Granddaughter Alive Maternal Grandmother Lady Vladimir Mother Isabel Reyes Son Alive x2 Social History Tobacco Use Types Packs/Day Years Used Date Smoking Tobacco: Never Smokeless Tobacco: Never Tobacco Cessation:Counseling Given: Not Answered Alcohol Use Standard Drinks/Week Comments Never 0 [...] Date Recorded Patient Health Questionnaire-2 Score 0 01/31/2025 [facility] [place] of Occupat ional Health - Occupational Stress [...] time in the past 12 m [facility], were you homeless or living in a nursing home (including now)? No 05/17/2024 Comments Unknown Sex [...] Sign Reading Time Taken Comments Blood Pressure 130/82 01/31/2025 3:29 PM EDT Pulse 64 01/31/2025 3:29 PM EDT Temperature - - Respiratory Rate 16 06/27/2024 3:15 PM EDT Oxygen Saturation 95% 01/31/2025 3:29 PM EDT Inhaled Oxygen Concentration - - Weight 76.7 kg (169 lb) 01/31/2025 3:29 PM EDT Height 154.9 cm (5' 1 ) 01/31/2025 3:29 PM EDT Body Mass Index 31.93 01/31/2025 3:29 PM EDT Plan of Treatment Upcoming Encounters Date Type Department Care Team (Late st Contact Info) Description 08/05/2025 3:30 PM EDT Office Visit [facility] [address] [facility] [address] [place] [phone] Favian Riggins MD [address] [facility] [address] [place] [address] Health Maintenance Due Date Last Done Comments CT Colonography 1955 FOBT 1955 Sigmoidoscopy 1955 FIT 08/31/2019 08/31/2018 Colonoscopy 04/04/2025 04/04/2015 Diabetes: Hemoglobin A1C 05/01/2025 025, 05/08/2024, 11/03/2023, Additional history exists Medicare Annual Wellness (AWV) 06/27/2025 06/27/2024 , 05/24/2023 Influenza Vaccine (#1) 2025 3, 08/24/2022, 10/26/2021, Additional history exists Mammogram 07/13/2025 07/13/2024, 07/08, 07/24/2021, Additional history exists Diabetes: Urine Protein Screening 01/31/2026 01/31/2025, 10/04/2023, 08/24/2022 Colorectal Cancer Screening 06/09/2026 FIT-DNA 06/09/2026 06/09/2023, 05/08, 01/21/2019, Additional history exists Diabetes: Retinopathy Screening 06/27/2026 4, 04/13/2022 Pneumococcal Vaccine: 65+ Years Completed 10/27/2023, 09/26/2018, 09/08/2017 Procedures Procedure Name Priority Date/Time Associated Diagnosis Comments MR BRAIN WO CONTRAST 02/22/2025 3:28 PM EDT MICROALBUMIN / CREATININE URINE RATIO Routine 01/31/2025 3:28 PM EDT Abnormal glucose tolerance test Type 2 diabetes mellitus with stage 3a chronic kidney disease, without long-term current use of insulin (HCC) Medicare annual wellness visit, subsequent HEMOGLOBIN A1C Routine 01/29/2025 2:53 PM EDT Abnormal glucose tolerance test Type 2 diabetes mellitus with stage 3a chronic kidney disease, without long-term current use of insulin ([facility]) Medicare annual wellness visit, subsequent MM TOMOSYNTHESIS SCREENING BI 07/13/2024 2:39 PM EDT DIABETIC RETINOPATHY SCREENING - OU - BOTH EYES Routine 06/27/2024 LAB COLOGUARD COLON CANCER SCREEN Routine 06/09/2023 8:55 AM EDT COLONOSCOPY Routine 04/04/2015 12:00 PM EDT from Last 3 Months or Most Recently Relevant to Health Maintenance Results * MR brain wo contrast (02/22/2025 3:28 PM EDT) Anatomical Region Laterality Modality Brain Magnetic Resonan ce 02/22/2025 3:28 PM EDT Narrative 02/22/2025 3:27 PM EDT THIS EXAM WAS PERFORMED AT [facility] MR BRAIN WO CONT 02/20/2025 1:24 PM INDICATION: Parkinsonism, unspecified Parkinsonism type (CMS-HCC); Gait instability; Involuntary movements COMPARISON: None TECHNIQUE: Multiplanar multisequence MR images of the brain were obtained without intravenous contrast. Volumetric 3-D series were sent for [employer] age-related atrophy report, this is generated at an independent workstation, by a third alliance party vendor, to further assess anatomy. Images quality controlled under physician supervision. FINDINGS: No acute intracranial ischemia, mass effect, shift of midline structures, or abnormal extra-axial fluid collection. No acute intracranial hemorrhage. Mild overall brain volume loss. Mild nonspecific burden of T2/FLAIR hyperintensity within the supratentorial white matter, most commonly associated with chronic microvascular ischemic change. Major intracranial flow voids are preserved. Ventricular system size and morphology are normal, basal cisterns are patent. Orbits are symmetric. Paranasal sinuses and mastoid air cells are well-aerated. IMPRESSION: * No acute intracranial ischemia, mass effect, or mass lesion given limitations of noncontrast exam. * Mild nonspecific burden of T2/FLAIR hyperintensity within the supratentorial white matter, most commonly associated with chronic microvascular ischemic change. Deon oCmbs MD have personally reviewed the image(s) and agree with and/or edited the report Finalized by Deon Conde MD on 02/22/2025 3:27 PM 9 The copy-to physician of this order is FAVIAN Mahmood The ordering physician of this order is RICKEY Grant Procedure Note Radiology, Radiologist, MD - 02/22/2025 THIS EXAM WAS PERFORMED AT [facility] BRAIN WO CONT 02/20/2025 1:24 PM INDICATION: Parkinsonism, unspecified Parkinsonism type (CMS-HCC); Gaitinstability; Involuntary movements COMPARISON: None TECHNIQUE: Multiplanar multisequence MR images of the brain were obtainedwithout intravenous contrast. Volumetric 3-D series were sent for [employer] age-related atrophy report,this is generated at an independent workstation, by a third alliance party vendor,to further assess anatomy. Images quality controlled under physiciansupervision. FINDINGS: No acute intracranial ischemia, mass effect, shift of midline structures,or abnormal extra-axial fluid collection. No acute intracranialhemorrhage. Mild overall brain volume loss. Mild nonspecific burden ofT2/FLAIR hyperintensity within the supratentorial white matter, mostcommonly associated with chronic microvascular ischemic change. Major intracranial flow voidsare preserved. Ventricular system size and morphology are normal, basalcisterns are patent. Orbits are symmetric. Paranasal sinuses and mastoid air cells arewell-aerated. IMPRESSION: * No acute intracranial ischemia, mass effect, or mass lesion givenlimitations of noncontrast exam. * Mild nonspecific burden of T2/FLAIR hyperintensity within thesupratentorial white matter, most commonly associated with chronicmicrovascular ischemic change. Deon Combs MD have personally reviewed the image(s) and agree withand/or edited the report Finalized by Deon Conde MD on 02/22/2025 3:27 PM 9 The copy-to physician of this order is FAVIAN Mahmood The ordering physician of this order is RICKEY Grant us Generic External Data Provider IMG MRI PROCEDURE S Final Result * (ABNORMAL) Microalbumin / creatinine urine ratio (01/31/2025 3:28 PM EDT) CREATININE, RANDOM URINE 88 20 - 275 mg/dL [facility] ALBUMIN, URINE 4.1 See Note: mg/dL [facility] Comment: Reference Range: Reference Range Not established ALBUMIN/CREATININE RATIO, RANDOM URINE 47(H) <30 mg/g creat [facility] Comment: The ADA defines abnormalities in albumin excretion as follows: Albuminuria Category Result (mg/g creatinine) Normal to Mildly increased <30 Moderately increased 30-299 Severely increased > OR = 300 The ADA recommends that at least two of three specimens collected within a 3-6 month period be abnormal before considering a patient to be within a diagnostic category. Urine Urine specimen obtained by clean catch procedure / Unknown 01/31/2025 3:28 PM EDT 01/31/2025 3:28 PM EDT Narrative [facility] - 02/01/2025 12:04 PM EDT SPLIT 01/29/2025 FROM [id number] Resulting Agency Comment Performing Organization Information Site ID: QPT Name: [facility] Address: [address] [place] [address], [address] [place] [id number] Director: Chris Aparicio MD Favian Riggins MD LAB URINE ORDERABLES Final Resul t [facility] * (ABNORMAL) Hemoglobin A1c (01/29/2025 2:53 PM EDT) Hemoglobin A1C 6.3(H) <5.7 % of total Hgb [facility] Comment: For someone without known diabetes, a hemoglobin A1c value between 5.7% and 6.4% is consistent with prediabetes and should be confirmed with a follow-up test. For someone with known diabetes, a value <7% indicates that their diabetes is well controlled. A1c targets should be individualized based on duration of diabetes, age, comorbid conditions, and other considerations. This assay result is consistent with an increased risk of diabetes. Currently, no consensus exists regarding use of hemoglobin A1c for diagnosis of diabetes for children. Blood Venous blood specimen / Unknown 01/29/2025 2:53 PM EDT 01/29/2025 2:54 PM EDT Narrative [facility] - 01/30/2025 10:57 AM EDT FASTING:YES COLLECTION KIT GIVEN TO PATIENT. PATIENT ADVISED TO RETURN. FASTING: YES Resulting Agency Comment Performing Organization Information Site ID: QPT Name: [facility] Address: [address] [place] [address], [address] [place] [id number] Director: Chris Aparicio MD Favian Riggins MD LAB BLOOD ORDERABLES Final Resul t [facility] * MM TOMOSYNTHESIS SCREENING BI (07/13/2024 2:39 PM EDT) Anatomical Region Laterality Modality Other 07/13/2024 2:39 PM EDT Narrative 07/13/2024 2:40 [place] [address] Mammography Report Signed Patient: BETTYE MUSE MR#: [id number] : 1955 Acct:[id number] Age/Sex: 69 / F ADM Date: 07/11/24 Loc: MAMMO Attending Dr: MATTIE DELGADO Ordering Physician: MATTIE DELGADO Results: Date of Service: 07/11/24 Follow Up: Procedure(s): MM tomosynthesis screening BI Accession Number(s): [id number] cc: FAVIAN RIGGINS KAREN M Patient Name: BETTYE MUSE MR#: [id number] : 1955 Exam Date: 07/11/2024 Ordering Doctor: DR MATTIE DELGADO PA RADIOLOGY REPORT PROCEDURE: MM TOMOSYNTHESIS SCREENING BI COMPARISON: MG MAMM SCREEN 3D VICTORINA CAD, 07/24/2021. MG MAMM SCREEN VICTORINA W CAD, 04/22/2020. MG MAMM SCREEN VICTORINA W CAD, 10/19/2018. MG MAMM VICTORINA SCRN W CAD DIG, 02/27/2016. INDICATIONS: Encounter for screening mammogram for neoplasm of breast Calculator Name NCI Breast Cancer Risk Assessment Tool 5 Year Breast Cancer Risk 3.20% Lifetime Breast Cancer Risk 10.10% Personal Breast Cancer No Personal Ovarian Cancer No Treatments None Family Cancers Mother with breast cancer at age 81; Aunt-maternal with lung cancer at age 70; Aunt-maternal with colon cancer at age 80; Grandmother-paternal with bone cancer at age 80. LOCATION: [facility] BREAST COMPOSITION: The breasts are heterogeneously dense,which may obscure small masses. FINDINGS: DIAGNOSTIC CATEGORY 2--BENIGN FINDING: RIGHT BREAST: No significant suspicious finding. Scattered benign-appearing calcifications are present. No significant change has occurred. LEFT BREAST: No significant suspicious finding. Stable chronic asymmetry may anterior upper-outer quadrant. No significant change has occurred. RECOMMENDATIONS: ROUTINE MAMMOGRAM AND CLINICAL EVALUATION IN 12 MONTHS. PLEASE NOTE: A NORMAL MAMMOGRAM DOES NOT EXCLUDE THE POSSIBILITY OF BREAST CANCER. A CLINICALLY SUSPICIOUS PALPABLE LUMP SHOULD BE BIOPSIED. Dictated by: Christiano Johnson M.D. on 07/13/2024 at 14:28 Approved by: Christiano Johnson M.D. on 07/13/2024 at 14:39 Dictated By: Christiano Johnson M.D. Signed By: 07/13/24 1440 DD/ 1439 TD/TT: Analytical Lead: Procedure Note Radiology, Radiologist, - 07/13/2024 The [place] [id number] Mammography Report Signed Patient: BETTYE MUSE LMR#: [id number] : 1955cct:[id number] Age/Sex: 69 / FADM Date: 07/11/24 Loc: MAMMO Attending Dr: MATTIE DELGADO Ordering Physician: MATTIE DELGADO MResults: Date of Service: 07/11/24Follow Up: Procedure(s): MM tomosynthesis screening BI Accession Number(s): [id number] cc: FAVIAN RIGGINS ; MATTIE DELGADO Patient Name: BETTYE MUSE MR#: [id number] : 1955 Exam Date: 07/11/2024 Ordering Doctor: DR MATTIE DELGADO PA RADIOLOGY REPORT PROCEDURE: MM TOMOSYNTHESIS SCREENING BI COMPARISON: MG MAMM SCREEN 3D VICTORINA CAD, 07/24/2021. MG MAMM SCREEN BILW CAD, 04/22/2020. MG MAMM SCREEN VICTORINA W CAD, 10/19/2018. MG MAMM VICTORINA SCRN WCAD DIG, 02/27/2016. INDICATIONS: Encounter for screening mammogram for neoplasm of breast Calculator Name NCI Breast Cancer Risk Assessment Tool 5 Year Breast Cancer Risk 3.20% Lifetime Breast Cancer Risk 10.10% Personal Breast Cancer No Personal Ovarian Cancer No Treatments None Family Cancers Mother with breast cancer at age 81; Aunt-maternal with lung cancer at age 70; Aunt-maternal with colon cancer at age 80; Grandmother-paternal with bone cancer at age 80. LOCATION: [facility] BREAST COMPOSITION: The breasts are heterogeneously dense,which may obscure small masses. FINDINGS: DIAGNOSTIC CATEGORY 2--BENIGN FINDING: RIGHT BREAST: No significant suspicious finding. Scatteredbenign-appearing calcifications are present. No significant change has occurred. LEFT BREAST: No significant suspicious finding. Stable chronic asymmetrymay anterior upper-outer quadrant. No significant change has occurred. RECOMMENDATIONS: ROUTINE MAMMOGRAM AND CLINICAL EVALUATION IN 12 MONTHS. PLEASE NOTE: A NORMAL MAMMOGRAM DOES NOT EXCLUDE THE POSSIBILITY OFBREAST CANCER. A CLINICALLY SUSPICIOUS PALPABLE LUMP SHOULD BE BIOPSIED. Dictated by: Christiano Johnson M.D. on 07/13/2024 at 14:28 Approved by: Christiano Johnson M.D. on 07/13/2024 at 14:39 Dictated By: Christiano Johnson M.D. Signed By:07/13/24 1440 DD/ 1439 TD/TT: Analytical Lead: Mattie [facility] Final Result * Diabetic Retinopathy Screening - OU - Both Eyes (06/27/2024) RESULTS normal Anatomical Region Laterality Modality Head Other 06/27/2024 Favian Riggins MD OPHTH PHOTOGRAPHY Final Result * Cologuard® colon cancer screening (06/09/2023 8:55 AM EDT) Stool us Unknown Practice A LAB MOLECULAR DIAGNOSTICS ORD ERABLES Final Result * Colonoscopy (04/04/2015 12:00 PM EDT) Anatomical Region Laterality Modality Endoscopy 04/04/2015 12:0 0 PM EDT Narrative 04/04/2015 12:00 PM EDT PERFORMED AT [facility] LOCATION:[id number] Refused Procedure Note CONVERSION, GENERIC - 03/24/2023 PERFORMED AT [facility] LOCATION:[id number] Refused Favian Riggins MD ENDOSCOPY PROCEDURE ORDERABLES F inal Result from Last 3 Months or Most Recently Relevant to Health Maintenance Insurance [employer] Care Teams Ror Engineer Relationship Specialty Start Date End Date Favian Riggins MD [address] [facility] [address] [place] [address] PCP - General Family Medicine 04/22/23 Keyla Fabian LPN [address] [facility] [address] [place] [address] 01/25/25
--- OUTSIDE RECORDS SUMMARY | 2025-05-11 21:32 | XMS_ITS | CCD ---
Author Organization [facility]iniSyn[facility] Care Team Providers Care Liner Installer Name Role Phone PHYSICIAN, DEFAULT Admitting Unavailable PHYSICIAN, DEFAULT Attending Unavailable SELF, REFERRED Primary Care Unavailable PHYSICIAN, DEFAULT Admitting Unavailable PHYSICIAN, DEFAULT Attending Unavailable KASIE, JERE Admitting Unavailable KASIE, JERE Attending Unavailable SELF, REFERRED Referring Unavailable SELF, REFERRED Primary Care Unavailable PHYSICIAN, DEFAULT Admitting Unavailable PHYSICIAN, DEFAULT Attending Unavailable SELF, REFERRED Primary Care Unavailable PAY, DR BERRY Admitting Unavailable PAY, DR BERRY Consulting Unavailable PAY, DR BERRY Attending Unavailable GILSON, DR JOHNSTON Primary Care Unavailable ROSALBA, CHANA ROJAS Consulting Unavailable GILSON, DR JOHNSTON Attending Unavailable GILSON, DR JOHNSTON Admitting Unavailable GILSON, DR JOHNSTON Primary Care Unavailable GILSON, DR JOHNSTON Consulting Unavailable GILSON, DR JOHNSTON Consulting Unavailable GILSON, DR JOHNSTON Attending Unavailable GILSON, DR JOHNSTON Admitting Unavailable GILSON, DR JOHNSTON Primary Care Unavailable ZIEBER, DR ILA Dhaliwal Consulting Unavailable GUICHO NGUYEN Attending Unavailable PRESTON RIGGINS Primary Care Unavailable GUICHO NGUYEN Referring Unavailable PRESTON RIGGINS Primary Care Unavailable Gilson Preston GILLILAND Primary Care Provider Preston Riggins MD Primary Care Provider [phone] Preston Riggins MD Unavailable Preston Riggins MD Primary Care Provider GUICHO NGUYEN Attending Unavailable PRESTON RIGGINS Primary Care Unavailable HOLA, EHAD Attending Unavailable BRANDON VELAZCO Referring Unavailable PRESTON RIGGINS Primary Care Unavailable Fabian STUDIO DATA ANALYST, Keyla Unavailable Unavailable PRESTON RIGGINS Attending Unavailable PRESTON RIGGINS Attending Unavailable MATTIE DELGADO Attending Unavailable ANALI SARMIENTO Attending Unavailable BRANDON VELAZCO Attending Unavailable GILSON, RUGEN M Referring Unavailable GILSON, RUGEN M Primary Care Unavailable BRANDON VELAZCO Attending Unavailable GILSON, RUGEN M Referring Unavailable GILSON, RUGEN M Primary Care Unavailable BRANDON VELAZCO Attending Unavailable GILSON, RUGEN M Referring Unavailable GILSON, RUGEN M Primary Care Unavailable HOLA, EHAD Attending Unavailable HOLA, EHAD Referring Unavailable GILSON, RUGEN M Primary Care Unavailable BRANDON VELAZCO Attending Unavailable GILSON, RUGEN M Referring Unavailable GILSON, RUGEN M Primary Care Unavailable HOLA, EHAD Attending Unavailable HOLA, EHAD Referring Unavailable GILSON, RUGEN M Primary Care Unavailable HOLA, EHAD Attending Unavailable HOLA, EHAD Referring Unavailable GILSON, RUGEN M Primary Care Unavailable HOLA, EHAD Attending Unavailable HOLA, EHAD Referring Unavailable GILSON, RUGEN M Primary Care Unavailable HOLA, EHAD Attending Unavailable GILSON, RUGEN M Referring Unavailable GILSON, RUGEN M Primary Care Unavailable Allergies Allergy Classification Reported Allergen(s) Allergy Type Date of Onset Reaction(s) Facility (1 source) Iodine (And Iodine Containting Drugs) Drug allergy (disorder) [facility] (1 source) Nalbuphine Drug Allergy [facility] (1 source) Shrimp product Drug allergy (disorder) [facility] (10 sources) ARIPiprazole; Translations: [ARIPIPRAZOLE] Drug Allergy 3 Other [facility] Work Phone: (16 sources) Nalbuphine; Translations: [NALBUPHINE] Drug Allergy 4 Other [facility] (8 sources) Shrimp product Allergy to substance 4 [facility] (8 sources) Shellfish-Derived Products Propensity to adverse reactions 3 [facility] (8 sources) brexpiprazole; Translations: [BREXPIPRAZOLE] Drug Allergy 1 Other [facility] (2 sources) brexpiprazole Drug Allergy 1 [facility] Medications Current Medications Medication Drug Class(es) Dates Sig (Normalized) Sig (Original) ALPRAZolam 0.25 mg oral tablet (3 sources) Benzodiazepine Start: 09-25-2024 take 1 tablet by mouth once daily as needed for anxiety ALPRAZolam (XANAX) 0.25 mg tablet Indications: Generalized anxiety disorder Take 1 tablet (0.25 mg total) by mouth daily as needed for anxiety. 30 tablet 09/25/2024 Active Start: 10-14-2022 take 1 tablet by jamar th once daily as needed for anxiety ALPRAZolam (XANAX) 0.25 mg tablet Indications: Generalized anxiety disorder Take 1 tablet (0.25 mg total) by mouth daily as needed for anxiety. 30 tablet 10/14/2022 Active atenolol 50 mg oral tablet (11 sources) beta-Adrenergic Shawn Start: 08-26-2017 take 1 tablet by mouth in the morning atenolol (Tenormin) 50 MG tablet Indications: Palpitations TAKE 1 TABLET BY MOUTH IN THE MORNING 100 tablet 3 11/21/2024 Active atorvastatin 20 mg oral tablet (11 sources) HMG-CoA Reductase Inhibitor Start: 08-18-2021 take 1 tablet by mouth once daily atorvastatin (Lipitor) 20 MG tablet Indications: Pure hypercholesterolemi a, unspecified (CMS/HCC) TAKE 1 TABLET BY MOUTH DAILY 100 tablet 3 10/08/2024 Active biotin 1 mg chewable tablet (8 sources) Biotin 1000 MCG chewable tablet Chew Daily. Active CALCIUM CARBONATE-VITAMIN D3 ORAL (3 sources) Start: 12-24-2003 take 1 tablet by mouth once daily CALCIUM CARBONATE-VITAMIN D3 ORAL Take one(1) tablet two(2) times daily. 12/24/2003 Active cholecalciferol 0.125 mg oral capsule (7 sources) Vitamin D take 1 capsule by mouth once daily cholecalciferol (Vitamin D-3) 125 MCG (5000 UT) capsule Take 5,000 Units by mouth Daily Active ciclopirox 7.7 mg/ml topical cream (4 sources) Start: 09-18-2024 ciclopirox (Loprox) 0.77 % cream Indications: Other seborrheic dermatitis Apply thin layer to affected area once a day, 30 day supply 90 g 11 09/18/2024 Active dapagliflozin 5 mg oral tablet (11 sources) Sodium-Glucose Cotransporter 2 Inhibitor Start: 09-20-2022 take 1 tablet by mouth once daily dapagliflozin (Farxiga) 5 MG Indications: IGT (impaired glucose tolerance) Take 1 tablet (5 mg) by mouth Daily 100 tablet 3 08/14/2024 Active estradiol 0.5 mg oral tablet (5 sources) Estrogen Start: 09-19-2017 End: 06-27-2024 estradiol (ESTRACE) 0.5 mg tablet 09/19/2017 Active lamoTRIgine 150 mg oral tablet (11 sources) Mood Stabilizer, Anti-epileptic Agent Start: 01-01-2023 take 1 tablet by mouth in the morning lamoTRIgine (LaMICtal) 150 MG tablet Take 150 mg by mouth in the morning. 01/01/2023 Active losartan potassium 100 mg oral tablet (11 sources) Angiotensin 2 Receptor Shawn Start: 08-29-2021 take 1 tablet by mouth once daily losartan (Cozaar) 100 MG tablet Indications: Essential (primary) hypertension (CMS/HCC) TAKE 1 TABLET BY MOUTH DAILY 100 tablet 3 10/22/2024 Active meloxicam 15 mg oral tablet (7 sources) Nonsteroidal Anti-inflammatory Drug Start: 08-16-2024 End: 01-31-2025 take 1 tablet by mouth once daily at breakfast meloxicam (Mobic) 15 mg tablet Indications: Left knee pain, unspecified chronicity Take 1 tablet (15 mg) by mouth once daily with breakfast. 30 tablet 2 08/16/2024 Active metFORMIN hydrochloride 500 mg oral tablet (11 sources) Biguanide Start: 08-18-2023 take 1 tablet by mouth in the morning metFORMIN (Glucophage) 500 MG tablet Indications: Type 2 diabetes mellitus without complication, without long-term current use of insulin (CMS/HCC) TAKE 1 TABLET BY MOUTH IN THE MORNING with BREAKFAST 100 tablet 3 08/17/2024 Active traZODone hydrochloride 50 mg oral tablet (11 sources) Serotonin Reuptake Inhibitor Start: 09-25-2024 take 2 tablets by mouth once daily traZODone (DESYREL) 50 mg tablet Take 2 tablets (100 mg total) by mouth nightly. 180 tablet 3 09/25/2024 Active Start: 09-22-2023 take 2 tablets by mo uth once daily traZODone (DESYREL) 50 mg tablet Take 2 tablets (100 mg total) by mouth nightly. 180 tablet 3 09/22/2023 Active Start: 10-14-2022 take 1 tablet by jamar th at bedtime traZODone (Desyrel) 50 MG tablet Take 50 mg by mouth at bedtime. 10/14/2022 Active valbenazine 80 mg oral capsule (11 sources) Start: 01-10-2023 take 1 capsule by mouth in the morning Ingrezza 80 MG capsule Take 80 mg by mouth in the morning. 01/10/2023 Active 24 hr venlafaxine 150 mg extended release oral capsule (11 sources) Serotonin and Norepinephrine Reuptake Inhibitor Start: 04-23-2024 take 2 capsules by mouth once daily in the morning venlafaxine XR (EFFEXOR-XR) 150 mg 24 hr capsule Take 2 capsules (300 mg total) by mouth every morning. 180 capsule 3 04/23/2024 Active Start: 04-12-2023 take 2 capsules by m outh once daily venlafaxine XR (EFFEXOR-XR) 150 mg 24 hr capsule Take 2 capsules (300 mg total) by mouth once daily. 180 capsule 3 04/12/2023 Active Start: 01-21-2023 take 2 capsules by m outh every twenty-four hours in the morning venlafaxine XR (Effexor XR) 150 MG 24 hr capsule Take 2 capsules by mouth in the morning and 2 capsules before bedtime. 01/21/2023 Active Completed/Discontinued Medications Medication Drug Class(es) Dates Sig (Normalized) Sig (Original) brexpiprazole 1 mg oral tablet (2 sources) Atypical Antipsychotic End: 06-27-2024 take 2 tablets by mouth once daily Brexpiprazole (Rexulti) 1 MG tablet Take 2 tablets every day by oral route. 06/27/2024 Discontinued (Other) 24 hr buPROPion hydrochloride 150 mg extended release oral tablet (2 sources) Aminoketone End: 06-27-2024 take 1 tablet by mouth once daily buPROPion XL (Wellbutrin XL) 150 MG 24 hr tablet Take 1 tablet by mouth Daily 06/27/2024 Discontinued (Other) calcium carbonate 1500 mg oral tablet (5 sources) Start: 07-11-2024 End: 07-11-2025 take 1 tablet by mouth in the morning calcium carbonate (Calcium 600) 600 MG tablet Indications: Decreased estrogen level Take 1 tablet (600 mg) by mouth in the morning and 1 tablet (600 mg) in the evening. Take with meals. 07/11/2024 01/31/2025 Discontinued (Other) Multiple Vitamin (multivitamin) tablet (3 sources) End: 08-21-2024 take 1 tablet by mouth in the morning Multiple Vitamin (multivitamin) tablet Take 1 tablet by mouth in the morning. 06/27/2024 Discontinued (Other) take 1 tablet by mouth in the mo rning Multiple Vitamin (multivitamin) tablet Take 1 tablet by mouth in the morning. Active Multiple Vitamins-Minerals (HAIR SKIN & NAILS PO) (7 sources) End: 01-31-2025 take 1 tablet by mouth once daily Multiple Vitamins-Minerals (HAIR SKIN & NAILS PO) Take 1 tablet by mouth Daily 01/31/2025 Discontinued (Other) take 1 tablet by mouth once ally y Multiple Vitamins-Minerals (HAIR SKIN & NAILS PO) Take 1 tablet by mouth Daily Active thyroid (residential) 90 mg oral tablet (13 sources) Start: 09-19-2017 End: 01-31-2026 thyroid ([place] Thyroid) 90 MG tablet Indications: Hypothyroidism, unspecified (CMS/HCC) Take 1 tablet (90 mg) by mouth See administration instructions TAKE 1 TABLET BY MOUTH DAILY except take ONE-HALF OF a TABLET BY MOUTH on tuesday and tuesday 36 tablet 12 01/02/2025 01/31/2025 Discontinued (Reorder) Problems Active Problems Problem Classification Problem Date Documented Da te Episodic/Chronic Anxiety disorders (20 sources) Generalized anxiety disorder; Translations: [Generalized anxiety disorder] Onset: 5 05-11-2023 Chronic Chronic kidney disease (12 sources) Chronic kidney disease stage 3A ; Translations: [Chronic kidney disease, stage 3a (HCC)] Onset: 0 05-08-2024 Chronic Diabetes mellitus with complications (20 sources) Microalbuminuric diabetic nephropathy; Translations: [Type 2 diabetes mellitus with diabetic nephropathy] Onset: 3 05-11-2023 Chronic Disorders of lipid metabolism (10 sources) Hypercholesterolemia; Translations: [Pure hypercholesterolemia, unspecified] Onset: 3 05-11-2023 Chronic Essential hypertension (12 sources) Essential hypertension; Translations: [Essential (primary) hypertension] Onset: 6 05-11-2023 Chronic Menopausal disorders (20 sources) Other primary ovarian failure; Translations: [Decreased estrogen level] Onset: 6 Chronic Mood disorders (19 sources) Moderate recurrent major depression; Translations: [Major depressive disorder, recurrent, moderate] Onset: 5 05-11-2023 Chronic Osteoarthritis (4 sources) Primary generalized (osteo)arthritis; Translations: [PRIMARY GENERALIZED (OSTEO)ARTHRITIS] Onset: 8 Chronic Other aftercare (1 source) Other care home (current) drug therapy; Translations: [OTH HALFWAY CURRENT DRUG THERAPY] Onset: 1 Episodic Other ear and sense organ disorders (10 sources) Sensorineural hearing loss, bilateral; Translations: [Sensorineural hearing loss, bilateral] Onset: 3 05-11-2023 Chronic Other gastrointestinal disorders (2 sources) Chronic idiopathic constipation; Translations: [Chronic idiopathic constipation] Onset: 5 Chronic Other gastrointestinal disorders (4 sources) Chronic idiopathic constipation; Translations: [Chronic idiopathic constipation] Onset: 5 01-11-2025 Chronic Other gastrointestinal disorders (5 sources) Dysphagia; Translations: [Dysphagia, unspecified] Onset: 5 01-28-2025 Episodic Other inflammatory condition of skin (2 sources) Seborrheic dermatitis; Translations: [Other seborrheic dermatitis] 09-18-2024 Episodic Other lower respiratory disease (3 sources) Cough; Translations: [COUGH] Onset: 1 Episodic Other nervous system disorders (7 sources) Involuntary movement; Translations: [Unspecified abnormal involuntary movements] Onset: 5 01-28-2025 Episodic Other nervous system disorders (6 sources) Abnormal gait; Translations: [Unsteadiness on feet] Onset: 5 01-28-2025 Episodic Other nervous system disorders (1 source) Tremor, unspecified; Translations: [Tremor, unspecified] Onset: 5 Episodic Other non-traumatic joint disorders (11 sources) Pain in left knee; Translations: [Pain in joint, lower leg] Onset: 4 Episodic Other nutritional; endocrine; and metabolic disorders (9 sources) Obesity caused by energy imbalance; Translations: [Class 1 obesity due to excess calories with serious comorbidity and body mass index (BMI) of 31.0 to 31.9 in adult] Onset: 4 06-27-2024 Chronic Personality disorders (7 sources) Dependent personality disorder; 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] Onset: 7 06-02-2017 Chronic Residual codes; unclassified (1 source) Family history of malignant neoplasm of breast; Translations: [FAMILY HX MALIG NEOPLASM OF BREAST] Onset: 1 Episodic Residual codes; unclassified (1 source) Family history of malignant neoplasm of trachea, bronchus and lung; Translations: [FAM HX MALIG NEOPLSM TRACH BRON LNG] Onset: 1 Episodic Residual codes; unclassified (1 source) Family history of malignant neoplasm of digestive organs; Translations: [FAM HX MALIG NEOPLASM DIGESTIV ORGN] Onset: 1 Episodic Thyroid disorders (14 sources) Hypothyroidism; Translations: [Hypothyroidism, unspecified] Onset: 6 05-11-2023 Chronic Unclassified (9 sources) Parkinsonism; Translations: [Parkinsonism, unspecified Parkinsonism type (CMS-HCC)] Onset: 5 01-11-2025 Chronic Unclassified (2 sources) DX Onset: 8 Unclassified (3 sources) CONTACT W/AND (SUSP) EXPOS COVID-19; Translations: [CONTACT W/AND (SUSP) EXPOS COVID-19] Onset: 1 Unclassified (3 sources) Parkinsonism, unspecified; Translations: [Parkinsonism, unspecified] Onset: 5 Unclassified (1 source) New Patient Onset: 5 Viral infection (1 source) COVID-19; Translations: [COVID-19] Onset: 1 Past or Other Problems Problem Classification Problem Date Documented Da te Episodic/Chronic Administrative/social admission (2 sources) Patient encounter status; Translations: [Other specified counseling] 06-27-2024 Episodic Cardiac dysrhythmias (10 sources) Palpitations; Translations: [Palpitations] Onset: 02-09-2016 05-11-2023 Episodic Conditions associated with dizziness or vertigo (10 sources) Dizziness; Translations: [Dizziness and giddiness] Onset: 04-16-2023 04-16-2023 Episodic Diabetes mellitus without complication (10 sources) Impaired glucose tolerance; Translations: [Impaired glucose tolerance (oral)] Onset: 05-11-2023 05-11-2023 Episodic Genitourinary symptoms and ill-defined conditions (10 sources) Microalbuminuria; Translations: [Proteinuria, unspecified] Onset: 05-11-2023 05-11-2023 Episodic Mood disorders (9 sources) Mood disorders Onset: 06-27-2024 Resolved: 01-11-2025 06-27-2024 Other connective tissue disease (10 sources) Fibromyalgia; Translations: [Fibromyalgia] Onset: 06-01-2018 05-11-2023 Episodic Other ear and sense organ disorders (10 sources) Bilateral tinnitus; Translations: [Tinnitus, bilateral] Onset: 04-25-2023 04-25-2023 Episodic Other ear and sense organ disorders (8 sources) Subjective tinnitus; Translations: [Tinnitus, unspecified ear] Onset: 04-16-2023 Resolved: 05-24-2023 05-24-2023 Episodic Other gastrointestinal disorders (2 sources) Dysphagia, unspecified; Translations: [Dysphagia, unspecified] Onset: 01-11-2025 Episodic Other hereditary and degenerative nervous system conditions (14 sources) Tardive dyskinesia; Translations: [Drug induced subacute dyskinesia] Onset: 03-14-2024 05-08-2024 Episodic Other hereditary and degenerative nervous system conditions (3 sources) Drug induced subacute dyskinesia; Translations: [Drug induced subacute dyskinesia] Onset: 03-14-2024 Episodic Other infections; including parasitic (10 sources) History of herpes zoster; Translations: [Personal history of other infectious and parasitic diseases] Onset: 05-11-2023 05-11-2023 Episodic Other inflammatory condition of skin (1 source) Erythema nodosum; Translations: [ERYTHEMA NODOSUM] Onset: 07-12-2018 Episodic Other lower respiratory disease (8 sources) Dyspnea; Translations: [Dyspnea, unspecified] Onset: 11-21-2018 05-08-2024 Episodic Other lower respiratory disease (2 sources) Dyspnea on exertion; Translations: [Other forms of dyspnea] 06-27-2024 Episodic Other nervous system disorders (3 sources) Unsteadiness on feet; Translations: [Unsteadiness on feet] Onset: 01-11-2025 Episodic Other nervous system disorders (3 sources) Unspecified abnormal involuntary movements; Translations: [Unspecified abnormal involuntary movements] Onset: 01-11-2025 Episodic Other screening for suspected conditions (not mental disorders or infectious disease) (3 sources) Encounter for screening mammogram for malignant neoplasm of breast; Translations: [Patient encounter status] Onset: 08-13-2021 06-27-2024 Episodic Other skin disorders (10 sources) Rash and other nonspecific skin eruption; Translations: [Rash and other nonspecific skin eruption] Onset: 10-03-2023 10-03-2023 Episodic Residual codes; unclassified (10 sources) Noncompliance with treatment; Translations: [Noncompliance with treatment] Onset: 09-30-2015 05-11-2023 Episodic Unclassified (1 source) CONTACT W/AND (SUSP) EXPOS COVID-19; Translations: [CONTACT W/AND (SUSP) EXPOS COVID-19] Onset: 06-20-2021 Unclassified (1 source) Onset: 01-28-2025 01-28-2025 Results Test Name Value Interpretation Reference Range Facil ity NM BRAIN IMAGING SPECTon NM BRAIN IMAGING SPECT NM BRAIN IMAGING SPECT [employer]GE INSPECTOR DATSCAN CLINICAL HISTORY: 70 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 Concern for primary versus secondary parkinsonism. COMPARISON: MR brain dated 02/20/25. TECHNIQUE: One hour after preparation with oral potassium iodide solution, the patient was intravenously administered 4.5 mCi of I-123 Ioflupane. Then, approximately 3 hours later, SPECT imaging of the head was performed. Images were reconstructed in sagittal, coronal and axial projections. COMMENT: No areas of abnormally increased radiotracer accumulation are identified within the brain. Cortical and white matter structures demonstrate symmetric background uptake of radiotracer. On axial view there are symmetric crescent-shaped areas of radiotracer uptake about the midline in the striata. Tracer uptake in the striata is distinct relative to the surrounding brain tissue. There are no areas of decreased I-123 Ioflupane accumulation to suggest depressed dopamine receptor activity in striata. IMPRESSION: Normal crescent-shaped symmetric dopamine transporter distribution in bilateral striata. These findings are not suggestive of Parkinsonian syndrome. 8 Finalized by Dilma Booth MD on 03/08/2025 11:00 AM [facility] MR BRAIN WO CONTon MR BRAIN WO CONT MR BRAIN WO CONT MR BRAIN WO CONT 02/20/2025 1:24 PM INDICATION: Parkinsonism, unspecified Parkinsonism type (CMS-HCC); Gait instability; Involuntary movements COMPARISON: None TECHNIQUE: Multiplanar multisequence MR images of the brain were obtained without intravenous contrast. Volumetric 3-D series were sent for [employer] age-related atrophy report, this is generated at an independent workstation, by a third republican vendor, to further assess anatomy. Images quality [...] commonly associated with chronic microvascular ischemic change. I, Deon Conde MD have personally reviewed the image(s) and agree with and/or edited the report 4 Finalized by Deon Conde MD on 02/22/2025 3:27 PM Normal [facility] ALBUMIN, RANDOM URINE W/CREA ZORAon 02-01-2025 ALBUMIN, URINE 4.1 mg/dL Normal See Note: [facility] Comment on above: Order Comment: SPLIT 01/29/2025 FROM [id number] Result Comment: Refe rence Range: Reference Range Not established Performed By: #### 6 [id number] #### [facility] [address], [address] [place] [id number] Laboratory Animal Care Veterinarian: Chris Aparicio MD ALBUMIN/CREATININE RATIO, RANDOM URINE 47 mg/g creat High <30 [facility] Comment on above: Order Comment: SPLIT 01/29/2025 FROM [id number] Result Comment: The ADA defines abnormalities in albumin excretion as follows: Albuminuria Category Result (mg/g creatinine) Normal to Mildly increased <30 Moderately increased 30-299 Severely increased > OR = 300 The ADA recommends that at least two of three specimens collected within a 3-6 month period be abnormal before considering a patient to be within a diagnostic category. Performed By: #### 6 [id number] #### [facility] [place] [address] Laboratory Animal Care Veterinarian: Chris Aparicio MD Creatinine (U) [Mass/Vol] 88 mg/dL Normal 20-275 [facility] Comment on above: Order Comment: SPLIT 01/29/2025 FROM [id number] Performed By: #### 6 [id number] #### [facility] of [place] [address] Laboratory Animal Care Veterinarian: Chris Aparicio MD CBC (INCLUDES DIFF/PLT)on Basophils (Bld) [#/Vol] 0.053 10*3/uL Normal 0-200 [facility] Comment on above: Performed By: #### 8 66, 17228, 7600, 6399, 496 #### [facility] of [place] [address] Laboratory Animal Care Veterinarian: Chris Aparicio MD Basophils/100 WBC (Bld) 0.7 % Normal [facility] Comment on above: Performed By: #### 8 66, 22262, 7600, 6399, 496 #### [facility] [place] [address] Laboratory Animal Care Veterinarian: Chris Aparicio MD Eosinophils (Bld) [#/Vol] 0.084 10*3/uL Normal 15-500 [facility] Comment on above: Performed By: #### 8 66, 04490, 7600, 6399, 496 #### [facility] [place] [address] Laboratory Animal Care Veterinarian: Chris Aparicio MD Eosinophils/100 WBC (Bld) 1.1 % Normal [facility] Comment on above: Performed By: #### 8 66, 29380, 7600, 6399, 496 #### [facility] [place] [address] Laboratory Animal Care Veterinarian: Chris Aparicio MD Erythrocyte distribution width (RBC) [Ratio] 12.2 % Normal 11.0-15.0 [facility] Comment on above: Performed By: #### 8 66, 15820, 7600, 6399, 496 #### [facility] of [place] [address] Laboratory Animal Care Veterinarian: Chris Aparicio MD Hematocrit (Bld) [Volume fraction] 45.5 % High 35.0-45.0 [facility] Comment on above: Performed By: #### 8 66, 72559, 7600, 6399, 496 #### [facility] of [address], [address] [place] [address] Laboratory Animal Care Veterinarian: Chris Aparicio MD Hemoglobin (Bld) [Mass/Vol] 15.1 g/dL Normal 11.7-15.5 [facility] Comment on above: Performed By: #### 8 66, 16468, 7600, 6399, 496 #### [facility] of [place] [address] Laboratory Animal Care Veterinarian: Chris Aparicio MD Lymphocytes (Bld) [#/Vol] 1.718 10*3/uL Normal 850-3900 [facility] Comment on above: Performed By: #### 8 66, 30642, 7600, 6399, 496 #### [facility] of [place] [address] Laboratory Animal Care Veterinarian: Chris Aparicio MD Lymphocytes/100 WBC (Bld) 22.6 % Normal [facility] Diagnostics Comment on above: Performed By: #### 8 66, 97180, 7600, 6399, 496 #### [facility] [place] [address] Laboratory Animal Care Veterinarian: Chris Aparicio MD MCH (RBC) [Entitic mass] 30.8 pg Normal 27.0-33.0 [facility] Comment on above: Performed By: #### 8 66, 30294, 7600, 6399, 496 #### [facility] [place] [address] Laboratory Animal Care Veterinarian: Chris Aparicio MD MCHC (RBC) [Mass/Vol] 33.2 g/dL Normal 32.0-36.0 [facility] Comment on above: Result Comment: For adults, a slight decrease in the calculated MCHC value (in the range of 30 to 32 g/dL) is most likely not clinically significant; however, it should be interpreted with caution in correlation with other red cell parameters and the patient's clinical condition. Performed By: #### 8 66, 88359, 7600, 6399, 496 #### [facility] [place] [address] Laboratory Animal Care Veterinarian: Chris Aparicio MD MCV (RBC) [Entitic vol] 92.7 fL Normal 80.0-100.0 [facility] Comment on above: Performed By: #### 8 66, 36382, 7600, 6399, 496 #### [facility] [place] [address] Laboratory Animal Care Veterinarian: Chris Aparicio MD Monocytes (Bld) [#/Vol] 0.456 10*3/uL Normal 200-950 [facility] Comment on above: Performed By: #### 8 66, 32786, 7600, 6399, 496 #### [facility] [place] [address] Laboratory Animal Care Veterinarian: Chris Aparicio MD Monocytes/100 WBC (Bld) 6.0 % Normal [facility] Comment on above: Performed By: #### 8 66, 09871, 7600, 6399, 496 #### [facility] [place] [address] Laboratory Animal Care Veterinarian: Chris Aparicio MD Neutrophils (Bld) [#/Vol] 5.29 10*3/uL Normal 5895-7166 [facility] Comment on above: Performed By: #### 8 66, 49231, 7600, 6399, 496 #### [facility] [place] [address] Laboratory Animal Care Veterinarian: Chris Aparicio MD Neutrophils/100 WBC (Bld) 69.6 % Normal [facility] Comment on above: Performed By: #### 8 66, 47269, 7600, 6399, 496 #### [facility] [place] [address] Laboratory Animal Care Veterinarian: Chris Aparicio MD Platelet mean volume (Bld) [Entitic vol] 10.4 fL Normal 7.5-12.5 [facility] Comment on above: Performed By: #### 8 66, 51773, 7600, 6399, 496 #### [facility] of [address], [address] [place] [address] Laboratory Animal Care Veterinarian: Chris Aparicio MD Platelets (Bld) [#/Vol] 373 10*3/uL Normal 140-400 [facility] Comment on above: Performed By: #### 8 66, 02315, 7600, 6399, 496 #### [facility] [place] [address] Laboratory Animal Care Veterinarian: Chris Aparicio MD RBC (Bld) [#/Vol] 4.91 10*6/uL Normal 3.80-5.10 [facility] Comment on above: Performed By: #### 8 66, 31638, 7600, 6399, 496 #### [facility] [place] [address] Laboratory Animal Care Veterinarian: Chris Aparicio MD WBC (Bld) [#/Vol] 7.6 10*3/uL Normal 3.8-10.8 [facility] Comment on above: Performed By: #### 8 66, 84587, 7600, 6399, 496 #### [facility] [place] [address] Laboratory Animal Care Veterinarian: Chris Aparicio MD [facility] 01-30-2025 Albumin [Mass/Vol] 4.6 g/dL Normal 3.6-5.1 [facility] Comment on above: Performed By: #### 8 66, 30454, 7600, 6399, 496 #### [facility] [place] [address] Laboratory Animal Care Veterinarian: Chris Aparicio MD Albumin/Globulin [Mass ratio] 1.9 {ratio} Normal 1.0-2.5 [facility] Comment on above: Performed By: #### 8 66, 58034, 7600, 6399, 496 #### [facility] [address], [address] [place] [address] Laboratory Animal Care Veterinarian: Chris Aparicio MD ALP [Catalytic activity/Vol] 118 U/L Normal 37-153 [facility] Comment on above: Performed By: #### 8 66, 96298, 7600, 6399, 496 #### [facility] [place] [address] Laboratory Animal Care Veterinarian: Chris Aparicio MD ALT [Catalytic activity/Vol] 11 U/L Normal 6-29 [facility] Comment on above: Performed By: #### 8 66, 46630, 7600, 6399, 496 #### [facility] [address], [address] [place] [address] Laboratory Animal Care Veterinarian: Chris Aparicio MD AST [Catalytic activity/Vol] 14 U/L Normal 10-35 [facility] Comment on above: Performed By: #### 8 66, 28678, 7600, 6399, 496 #### [facility] [place] [address] Laboratory Animal Care Veterinarian: Chris Aparicio MD Bilirubin [Mass/Vol] 0.7 mg/dL Normal 0.2-1.2 [facility] Comment on above: Performed By: #### 8 66, 50069, 7600, 6399, 496 #### [facility] [place] [address] Laboratory Animal Care Veterinarian: Chris Aparicio MD BUN/CREATININE RATIO SEE NOTE: Normal 6-22 [facility] Comment on above: Result Comment: Not Reported: BUN and Creatinine are within reference range. Performed By: #### 8 66, 22484, 7600, 6399, 496 #### [facility] [address], [address] [place], [place] [address] Laboratory Animal Care Veterinarian: Chris Aparicio MD Calcium [Mass/Vol] 9.3 mg/dL Normal 8.6-10.4 [facility] Comment on above: Performed By: #### 8 66, 48003, 7600, 6399, 496 #### [facility] [place] [address] Laboratory Animal Care Veterinarian: Chris Aparicio MD Chloride [Moles/Vol] 102 mmol/L Normal 98-110 [facility] Comment on above: Performed By: #### 8 66, 80377, 7600, 6399, 496 #### [facility] [place] [address] Laboratory Animal Care Veterinarian: Chris Aparicio MD CO2 [Moles/Vol] 31 mmol/L Normal 20-32 [facility] Comment on above: Performed By: #### 8 66, 95199, 7600, 6399, 496 #### [facility] [place] [address] Laboratory Animal Care Veterinarian: Chris Aparicio MD Creatinine [Mass/Vol] 0.91 mg/dL Normal 0.50-1.05 [facility] Comment on above: Performed By: #### 8 66, 85140, 7600, 6399, 496 #### [facility] [place] [address] Laboratory Animal Care Veterinarian: Chris Aparicio MD GFR/1.73 sq M.predicted among non-blacks MDRD (S/P/Bld) [Vol rate/Area] 69 mL/min/{1.73_m2} Normal > OR = 60 [facility] Comment on above: Performed By: #### 8 66, 22220, 7600, 6399, 496 #### [facility] [place] [address] Laboratory Animal Care Veterinarian: Chris pAaricio MD Globulin (S) [Mass/Vol] 2.4 g/dL Normal 1.9-3.7 [facility] Comment on above: Performed By: #### 8 66, 43113, 7600, 6399, 496 #### [facility] [place] [address] Laboratory Animal Care Veterinarian: Chris Aparicio MD Glucose [Mass/Vol] 105 mg/dL High 65-99 [facility] Comment on above: Result Comment: Fasting reference interval For someone without known diabetes, a glucose value between 100 and 125 mg/dL is consistent with prediabetes and should be confirmed with a follow-up test. Performed By: #### 8 66, 20233, 7600, 6399, 496 #### [facility] [place] [address] Laboratory Animal Care Veterinarian: Chris Aparicio MD Potassium [Moles/Vol] 3.8 mmol/L Normal 3.5-5.3 [facility] Comment on above: Performed By: #### 8 66, 93788, 7600, 6399, 496 #### [facility] [place] [address] Laboratory Animal Care Veterinarian: Chris Aparicio MD Protein [Mass/Vol] 7.0 g/dL Normal 6.1-8.1 [facility] Comment on above: Performed By: #### 8 66, 94825, 7600, 6399, 496 #### [facility] [place] [address] Laboratory Animal Care Veterinarian: Chris Aparicio MD Sodium [Moles/Vol] 142 mmol/L Normal 135-146 [facility] Comment on above: Performed By: #### 8 66, 02219, 7600, 6399, 496 #### [facility] [place] [address] Laboratory Animal Care Veterinarian: Chris Aparicio MD Urea nitrogen [Mass/Vol] 10 mg/dL Normal 7-25 [facility] Comment on above: Performed By: #### 8 66, 13319, 7600, 6399, 496 #### [facility] [place] [address] Laboratory Animal Care Veterinarian: Chris Aparicio MD HEMOGLOBIN A1con 01-30-2025 HEMOGLOBIN A1c 6.3 % of total Hgb High <5.7 [facility] Comment on above: Result Comment: For someone without known diabetes, a [...] A1c for diagnosis of diabetes for children. Performed By: #### 8 66, 76093, 7600, 6399, 496 #### [facility] [address], [address] [place] [address] Laboratory Animal Care Veterinarian: Chris Aparicio MD LIPID PANEL, [facility] 01-06 Cholesterol [Mass/Vol] 184 mg/dL Normal <200 [facility] Comment on above: Order Comment: FASTI NG:YES COLLECTION KIT GIVEN TO PATIENT. PATIENT ADVISED TO RETURN. FASTING: YES Performed By: #### 8 66, 73658, 7600, 6399, 496 #### [facility] [address], [address] [place] [address] Laboratory Animal Care Veterinarian: Chris Aparicio MD Cholesterol in HDL [Mass/Vol] 65 mg/dL Normal > OR = 50 [facility] Comment on above: Order Comment: FASTI NG:YES COLLECTION KIT GIVEN TO PATIENT. PATIENT ADVISED TO RETURN. FASTING: YES Performed By: #### 8 66, 73798, 7600, 6399, 496 #### [facility] [address], [address] [place] [address] Laboratory Animal Care Veterinarian: Chris Aparicio MD Cholesterol in LDL [Mass/Vol] 97 mg/dL Normal [facility] Comment on above: Order Comment: FASTI NG:YES COLLECTION KIT GIVEN TO PATIENT. PATIENT ADVISED TO RETURN. FASTING: YES Result Comment: Refe rence range: <100 Desirable range <100 mg/dL for primary prevention; <70 mg/dL for patients with CHD or diabetic patients with > or = 2 CHD risk factors. LDL-C is now calculated using the Juan Carlos-Camacho calculation, which is a validated novel method providing better accuracy than the Friedewald equation in the estimation of LDL-C. Juan Carlos SS et al. JULIÁN. 2013;310(19): 4731-2488 (http://education.eBusinessCards.com.Yoka/faq/NWB816) Performed By: #### 8 66, 37185, 7600, 6399, 496 #### [facility] [address], [address] [place] [address] Laboratory Animal Care Veterinarian: Chris Aparicio MD Cholesterol.total/ Cholesterol in HDL [Mass ratio] 2.8 {ratio} Normal <5.0 [facility] Comment on above: Order Comment: FASTI NG:YES COLLECTION KIT GIVEN TO PATIENT. PATIENT ADVISED TO RETURN. FASTING: YES Performed By: #### 8 66, 18107, 7600, 6399, 496 #### [facility] [address], [address] [place] [address] Laboratory Animal Care Veterinarian: Chris Aparicio MD NON HDL CHOLESTEROL 119 mg/dL (calc) Normal <130 [facility] Comment on above: Order Comment: FASTI NG:YES COLLECTION KIT GIVEN TO PATIENT. PATIENT ADVISED TO RETURN. FASTING: YES Result Comment: For patients with diabetes plus 1 major ASCVD risk factor, treating to a non-HDL-C goal of <100 mg/dL (LDL-C of <70 mg/dL) is considered a therapeutic option. Performed By: #### 8 66, 10341, 7600, 6399, 496 #### [facility] [address], [address] [place] [address] Laboratory Animal Care Veterinarian: Chris Aparicio MD Triglyceride [Mass/Vol] 119 mg/dL Normal <150 [facility] Comment on above: Order Comment: FASTI NG:YES COLLECTION KIT GIVEN TO PATIENT. PATIENT ADVISED TO RETURN. FASTING: YES Performed By: #### 8 66, 15302, 7600, 6399, 496 #### [facility] [address], [address] [place] [address] Laboratory Animal Care Veterinarian: Chris Aparicio MD T4, FREEon 01-30-2025 Free T4 [Mass/Vol] 0.9 ng/dL Normal 0.8-1.8 [facility] Comment on above: Performed By: #### 8 66, 03218, 7600, 6399, 496 #### [facility] [address], [address] [place] [address] Laboratory Animal Care Veterinarian: Chris Aparicio MD TSH W/REFLEX TO FT4on 2024 TSH W/REFLEX TO FT4 6.27 mIU/L High 0.40-4.50 [facility] Comment on above: Performed By: #### 8 66, 00341, 7600, 6399, 496 #### [facility] [address] [facility], [address] [place] [address] Laboratory Animal Care Veterinarian: Chris Aparicio MD XR KNEE LEFT 4+ VIEWSon 08-07 XR KNEE LEFT 4+ VIEWS Interpreted By: Colin Rhodes, STUDY: XR KNEE LEFT 4+ VIEWS; ; 08/16/2024 3:50 pm INDICATION: Signs/Symptoms:pain . ,M25.562 Pain in left knee COMPARISON: None. ACCESSION NUMBER(S): [id number] ORDERING CLINICIAN: GUICHO NGUYEN FINDINGS: Left knee, four views There is no fracture. There is no dislocation. Mild osteophytosis in the medial compartment. Otherwise there are no degenerative changes. There is no effusion seen. There is no soft tissue abnormality seen. IMPRESSION: Mild medial compartment osteoarthritis. No acute abnormality MACRO: None Signed by: Colin Rhodes 08/17/2024 5:43 PM Dictation workstation: [id number] [facility] TSH w/ Reflex to Free T4on 0 03-16-2022 TSH 1.200 uIU/mL Normal 0.400-4.500 [facility] Senior Systems Developer Comment on above: Performed By: #### T SH reflex FT4 #### [facility] [address] [place], [place] [id number] Free T4on 10-14-2021 Free T4 [Mass/Vol] 1.08 ng/dL Normal 0.80-1.80 Jesse navas [place] Senior Systems Developer Comment on above: Performed By: #### F T4, TSH reflex FT4 #### [facility] [address] [place], [place] [id number] TSH w/ Reflex to Free T4on 1 12-15-2020 FT4 reflex Free T4 Normal [facility] Senior Systems Developer Comment on above: Performed By: #### F T4, TSH reflex FT4 #### [facility] [address] [place], [place] [id number] TSH 0.322 uIU/mL Low 0.400-4.500 [facility] Senior Systems Developer Comment on above: Performed By: #### F T4, TSH reflex FT4 #### [facility] [address] [place], [place] [id number] MG MAMM SCREEN 3D VICTORINA CADon 07-24-2021 MG MAMM SCREEN 3D VICTORINA CAD Patient: BETTYE MUSE Exam Date: 07/24/2021 : 1955 Gender:F Ordering : DR PRESTON RIGGINS M.D. Admission #: [id number] Family : Order #: [id number] CLICK HERE TO VIEW EXAM RADIOLOGY REPORT PROCEDURE: MAMMOGRAM SCREENING 3D BILATERAL CAD COMPARISON: MG MAMM SCREEN VICTORINA W CAD, 04/22/2020. MG MAMM SCREEN VICTORINA W CAD, 10/19/2018. INDICATIONS: Screening mammography Calculator Name NCI Breast Cancer Risk Assessment Tool 5 Year Breast Cancer Risk 3.10% Lifetime Breast Cancer Risk 11.40% Personal Breast Cancer No Personal Ovarian Cancer No Treatments None Family Cancers Mother with breast cancer at age 81; Aunt-maternal with lung cancer at age 70; Aunt-maternal with colon cancer at age 80; Grandmother-paterna l with bone cancer at age 80. LOCATION: [facility] BREAST COMPOSITION: Heterogeneously dense,which may obscure small masses. FINDINGS: DIAGNOSTIC CATEGORY 2--BENIGN FINDING: RIGHT BREAST: No significant suspicious finding. Scattered benign-appearing calcifications are present. No significant change has occurred. LEFT BREAST: No significant suspicious finding. Stable chronic cyst versus nodule within the anterior upper-outer quadrant. No significant change has occurred. RECOMMENDATIONS: ROUTINE MAMMOGRAM AND CLINICAL EVALUATION IN 12 MONTHS. PLEASE NOTE: A NORMAL MAMMOGRAM DOES NOT EXCLUDE THE POSSIBILITY OF BREAST CANCER. A CLINICALLY SUSPICIOUS PALPABLE LUMP SHOULD BE BIOPSIED. Dictated by: Ila Johnson M.D. on 07/24/2021 at 15:55 Approved by: Ila Johnson M.D. on 07/24/2021 at 15:59 Normal [facility] XR DEXA BONE DENSITYon 07-24 XR DEXA BONE DENSITY EXAMINATION: XR DEXA BONE DENSITY, 07/24/2021 1:56 PM EDT HISTORY: Primary ovarian failure COMPARISON: DEXA bone densitometry 10/19/2018 TECHNIQUE: Dual-energy X-ray absorptiometry (DEXA) bone density study performed for the axial skeleton. FINDINGS: SPINE ANALYSIS: Average bone mineral density is 1.617 g/cm2. T-score (standard deviation relative to young adult mean): 3.6 . +3.4% change since prior study. HIP ANALYSIS: Lowest bone mineral density is within the left femoral neck, 0.935 g/cm2. T-score (standard deviation relative to young adult mean): -0.7 . -5.9% change since prior study. IMPRESSION: World Bry Organization Classification: Normal - Low Fracture Risk Electronically authenticated by: ILA JOHNSON Date: 2021-07-24 16:37 Normal [facility] Covid-19 PCR (CVDTBH)on 06-08 SARS-CoV-2 (COVID-19) RNA HAKAN+probe Ql (Unsp spec) Detected Critically abnormal NOT DETECTED [facility] Comment on above: Result Comment: This test is not yet approved or cleared by the [place] FDA. When there are no FDA-approved or cleared tests available, and other criteria are met, FDA can make tests available under an emergency access mechanism called an Emergency Use Authorization (EUA). The EUA for this test is supported by the [place] of Health and Human Service's (HHS's) declaration that circumstances exist to justify the emergency use of in vitro diagnostics for the detection and/or diagnosis of the virus that causes COVID-19. This EUA will remain in effect (meaning this test can be used) for the duration of the COVID-19 declaration justifying emergency of IVDs, unless it is terminated or revoked by FDA (after which the test may no longer be used). Performed By: #### C VDTB #### [facility] [address] [place] [address] Payton Phelps SYMPTOMATIC COVID-19 ANTIGEN on 07-04-2021 EUA Statement SEE BELOW Normal [facility] Comment on above: Result Comment: This test has not been FDA cleared or approved, but has been authorized by the FDA under an Emergency Use Authorization (EUA) for use by authorized laboratories certified under CLIA that meet the requirements to perform moderate or high complexity testing. This test has been authorized only for the detection of proteins from SARS-CoV-2, not for any other viruses or pathogens. The emergency use of this test is authorized for the duration of the declaration that circumstances exist justifying the authorization of emergency use of in vitro diagnostic tests for detection and/or diagnosis of Covid-19 under section 564(b)(1) of the Act, 21 U.S.C. 360bbb-3(b)(1), unless the declaration is terminated or authorization is revoked sooner. Performed By: #### C VDAGS #### [facility] [address] [place] [address] Payton Phelps SARS-CoV-2 (COVID-19) RNA HAKAN+probe Ql (Unsp spec) Positive Critically abnormal NEGATIVE [facility] Comment on above: Performed By: #### C VDAGS #### [facility] [address] [place], [place] [address] Payton Phelps Covid-19 PCR (CVDTB)on 06-07 SARS-CoV-2 (COVID-19) RNA HAKAN+probe Ql (Unsp spec) Not detected Normal NOT DETECTED [facility] Comment on above: Result Comment: This test is not yet approved or cleared by the [place] FDA. When there are no FDA-approved or cleared tests available, and other criteria are met, FDA can make tests available under an emergency access mechanism called an Emergency Use Authorization (EUA). The EUA for this test is supported by the [place] of Health and Human Service's (HHS's) declaration that circumstances exist to justify the emergency use of in vitro diagnostics for the detection and/or diagnosis of the virus that causes COVID-19. This EUA will remain in effect (meaning this test can be used) for the duration of the COVID-19 declaration justifying emergency of IVDs, unless it is terminated or revoked by FDA (after which the test may no longer be used). When diagnostic testing is negative, the possibility of a false negative should be considered in the context of a patient's recent exposures and the presence of clinical signs and symptoms consistent with SARS-CoV-2. Performed By: #### C VDTBH #### [facility] [address] [place] [address] Payton MCGHEEon 07-12-2018 Nuclear Ab IF titer (S) 1:320 Abnormal <1:40,1:40 The [facility] Comment on above: Performed By: #### 0 0121 #### [facility] [address] [place] [address], [facility] Nuclear Ab IF titer (S) HOMOGENEOUS Normal [facility] Comment on above: Performed By: #### 0 0121 #### [facility] [address] [place] [address], [facility] ANTI DNAon 07-12-2018 ANTI DNA <1:10 Normal <1:10 [facility] Comment on above: Performed By: #### 0 0121 #### [facility] [address] [place] [address], [facility] ANTI-ENAon 07-12-2018 ANTI SM Negative Normal NEG,NEGATIVE,Ne g [facility] Comment on above: Performed By: #### 5 0103, 30207 #### [facility] [address] [place] [address], [facility] ANTI SM/ANTIRNP Negative Normal NEG,NEGATIVE ,Ne g [facility] Comment on above: Performed By: #### 5 0103, 99174 #### [facility] [address] [place] [address], [facility] C REACTIVE PROTEINon 018 CRP mass conc 15.6 mg/L High 0.0-7.0 [facility] Comment on above: Performed By: #### 6 1405, 47240, 32741, 77600, 55533, 07673 #### [facility] [address] CBC W/DIFFon 07-12-2018 ABS BASOPHILS 0.0 10*3/uL Normal 0.0-0.2 [facility] Comment on above: Performed By: #### 5 010, 93149 #### [facility] [address] ABS IMM GRANS 0.1 10*3/uL Normal 0.0-0.2 [facility] Comment on above: Performed By: #### 5 010, 04478 #### [facility] [address] ABS NEUTROPHILS 7.3 10*3/uL Normal 1.6-7.6 [facility] Comment on above: Performed By: #### 5 102, 61663 #### [facility] [address] Basophils #/vol (Bld) 0.3 % Normal 0.0-1.0 The [facility] Comment on above: Performed By: #### 5 102, 73776 #### [facility] [address] Eosinophils #/vol (Bld) 0.2 10*3/uL Normal 0.0-0.5 The [facility] Comment on above: Performed By: #### 5 102, 50588 #### [facility] [address] Eosinophils/100 WBC (Bld) 1.5 % Normal 0.0-6.0 The [facility] Comment on above: Performed By: #### 5 102, 91758 #### [facility] [address] Erythrocyte distribution width Ratio (RBC) 13.3 % Normal 11.5-15.0 [facility] Comment on above: Performed By: #### 5 102, 78418 #### [facility] [address] Hematocrit Volume Fraction (Bld) 39.6 % Normal 36.0-45.0 The [facility] Comment on above: Performed By: #### 102, 57986 #### [facility] [address] Hemoglobin mass conc (Bld) 13.0 g/dL Normal 12.0-15.0 The [facility] Comment on above: Performed By: #### 102, 93597 #### [facility] [address] [facility]. [address] IMMATURE GRANS 1.0 % Normal 0.0-1.0 [facility] Comment on above: Performed By: #### 102, 46607 #### [facility] [address] [facility] [address] Lymphocytes #/vol (Bld) 2.1 10*3/uL Normal 1.2-4.0 The [facility] Comment on above: Performed By: #### 102, 48296 #### [facility] [address] [facility]. [address] Lymphocytes/100 WBC (Bld) 20.2 % Normal 20.0-45.0 The [facility] Comment on above: Performed By: #### 102, 01017 #### [facility] [address] [facility] [address] MCH Entitic mass (RBC) 29.7 pg Normal 27.0-33.0 The [facility] Comment on above: Performed By: #### 102, 98101 #### [facility] [address] MCHC mass conc (RBC) 32.8 g/dL Normal 32.0-35.0 The [facility] Comment on above: Performed By: #### 102, 64104 #### [facility] [address] [facility]. [address] MCV Entitic volume (RBC) 90.4 fL Normal 82.0-98.0 [facility] Comment on above: Performed By: #### 5 102, 18034 #### [facility] [address] [facility]. [address] Monocytes #/vol (Bld) 0.7 10*3/uL Normal 0.1-1.0 The [facility] Comment on above: Performed By: #### 5 102, [id number] #### [facility] [address] [facility]. [address] MONOS 6.6 % Normal 5.0-12.0 The [facility] Comment on above: Performed By: #### 5 102, 20401 #### [facility] [address] [facility]. [address] Neutrophils/100 WBC (Bld) 70.4 % Normal 40.0-72.0 The [facility] Comment on above: Performed By: #### 102, 93838 #### [facility] [address] [facility]. [address] Nucleated RBC/100 WBC Ratio (Bld) 0 % Normal 0-0 The [facility] Comment on above: Performed By: #### 5 102, 12451 #### [facility] [address] [facility]. [address] PLAT CNT 311 10*3/uL Normal 150-400 The [facility] Comment on above: Performed By: #### 5 102, 19107 #### [facility] [address] [facility]. [address] RBC #/vol (Bld) 4.38 10*6/uL Normal 3.80-5.00 [facility] Comment on above: Performed By: #### 5 102, 54928 #### [facility] [address] [place] [address], [facility] WBC #/vol (Bld) 10.32 10*3/uL Normal 4.00-10.60 The [facility] Comment on above: Performed By: #### 5 0103, 25689 #### [facility] [address] [place] [address], [facility] CHROMATIN ANTIBODY, IGG 2004 287on 07-12-2018 CHROMATIN ANTIBODY, IGG 18 Units Normal 0-19 [facility] Comment on above: Result Comment: INTE RPRETIVE INFORMATION: Chromatin Antibody, IgG 19 Units or less: Negative 20 - 60 Units: Moderate Positive 61 Units or greater: Strong Positive The presence of anti-chromatin antibodies may be useful in the diagnosis of systemic lupus erythematosus (SLE) or drug-induced lupus (DIL) and have been reported to be predictive of lupus nephritis, especially when antibody levels are high. Performed by [employer], [address] [place] [address] [email or web address], Sergio Lee MD - Lab. Director COMP METABOLIC PANELon 07-12 Albumin mass conc 4.0 g/dL Normal 3.5-5.7 [facility] Comment on above: Performed By: #### 0 0121 #### [facility] [address] [place] [address], [facility] ALKALINE PHOSPH 67 IU/L Normal 34-[address] [facility] Comment on above: Performed By: #### 0 0121 #### [facility] [address] [place] [address], [facility] ALT enzyme act/vol 15 U/L Normal 7-52 The [facility] Comment on above: Performed By: #### 0 0121 #### [facility] [address] [place] [address], [facility] AST enzyme act/vol 16 U/L Normal 13-39 The [facility] Comment on above: Performed By: #### 0 0121 #### [facility] [address] [place] [address], [place] Bilirubin mass conc 0.6 mg/dL Normal 0.3-1.0 [facility] Comment on above: Performed By: #### 0 0121 #### [facility] [address] [place] [address], [place] Calcium mass conc 9.7 mg/dL Normal 8.6-10.3 [facility] Comment on above: Performed By: #### 0 0121 #### [facility] [address] [place] [address], [place] Chloride molar conc 99 mmol/L Normal 98-107 The [facility] Comment on above: Performed By: #### 0 0121 #### [facility] [address] [place] [address], [facility] CO2 molar conc 34 mmol/L High 21-31 The [facility] Comment on above: Performed By: #### 0 0121 #### [facility] [address] [place] [address], [place] Creatinine mass conc 1.00 mg/dL Normal 0.60-1.20 The [facility] Comment on above: Performed By: #### 0 0121 #### [facility] [address] [place] [address], [place] GFR/1.73 sq M predicted among blacks MDRD vol rate/area (S/P/Bld) mL/min/{1.73_m2} Normal >60 The [facility] Comment on above: Performed By: #### 0 0121 #### [facility] [address] [place] [address], [facility] GFR/1.73 sq M predicted among non-blacks MDRD vol rate/area (S/P/Bld) 56 ml/min/1.73sq m Abnormal >60 The [facility] Comment on above: Performed By: #### 0 0121 #### [facility] [address] [place] [address], [facility] Glucose mass conc 103 mg/dL High 70-100 The [facility] Comment on above: Performed By: #### 0 0121 #### [facility] [address] [place] [address], [facility] Potassium molar conc 3.1 mmol/L Low 3.5-5.1 The [facility] Comment on above: Performed By: #### 0 0121 #### [facility] [address] [place] [address], [facility] Protein mass conc 7.2 g/dL Normal 6.0-8.3 The [facility] Comment on above: Performed By: #### 0 0121 #### [facility] [address] [place] [address], [facility] Sodium molar conc 139 mmol/L Normal 136-145 The [facility] Comment on above: Performed By: #### 0 0121 #### [facility] [address] [place] [address], [facility] Urea nitrogen mass conc 16 mg/dL Normal 7-25 [facility] Comment on above: Performed By: #### 0 0121 #### [facility] [address] [place] [address], [facility] COMPLEMENT 307-12-2018 COMPLEMENT 3 120 mg/dL Normal 79-152 The [facility] Comment on above: Performed By: #### 5 0103, 53586 #### [facility] [address] [place] [address], [facility] COMPLEMENT 407-12-2018 COMPLEMENT 4 28 mg/dL Normal 16-38 The [facility] Comment on above: Performed By: #### 5 0103, 54777 #### [facility] [address] [place] [address], [facility] FOOT LEFT 3 VWSon 07-12-2018 FOOT LEFT 3 VWS [facility] Department of Radiology [address] [place] [address] Patient Name: BETTYE LEONE : 1955 Sex: F Age: Race: White Pt. Location: [facility] Patient Status: Ordered Date: 07/12/2018 11:50:00 AM Completed Date: 07/12/2018 12:13 PM Requesting Provider: JERE FERRO Attending Provider: Report Copy To: Signs & Symptoms: M19.90 Unspecified osteoarthritis, unspecified site I10 History: [place] Comments: , , , Ordering Provider - JERE FERRO MD , Exam: FOOT LEFT 3 VWS FOOT RIGHT 3 VWS, HAND LEFT 3 VWS, HAND RIGHT 3 VWS, FOOT LEFT 3 VWS 07/12/2018 12:13 PM EDT SIGNS AND SYMPTOMS: M19.90 Unspecified osteoarthritis, unspecified site I10 TECHNOLOGIST COMMENTS: Bilateral hand and foot pain, history of RA QUESTION FOR THE RADIOLOGIST: , , , Ordering Provider - JERE FERRO MD , PROTOCOL: AP,Lateral and Oblique views were obtained. COMPARISON: None FINDINGS: Bilateral hands: No erosions. Mild scattered spurring, most evident along the thumb CMC joints and the STT joints, slightly worse on the left Bilateral feet: No erosions. Severe bilateral big toe MTP joint osteoarthritis with complete loss of joint space. Small plantar spurs on calcaneus. Minor IP joint spurring but relatively intact midfoot except for some minor talonavicular arthritis. IMPRESSION: 1. Moderate osteoarthritis of the hands and fingers, predominantly at the thumb bases 2. Severe osteoarthritis of the bilateral big toe MTP joints 3. Mild bilateral talonavicular arthritis Electronically signed by:Marybeth Bonner. Transcribed by: [email or web address], User Resident: Electronically Signed by: MARYBETH BONNER @ 07/12/2018 04:26 PM Normal The [facility] Comment on above: Order Comment: , , = ========= , Ordering Provider - JERE FERRO MD , FOOT RIGHT [address] [facility] 8 FOOT RIGHT 3 [facility] Department of Radiology [address] [place] [id number] Patient Name: BETTYE LEONE : 1955 Sex: F Age: Race: White Pt. Location: [facility] Patient Status: Ordered Date: 07/12/2018 11:50:00 AM Completed Date: 07/12/2018 12:13 PM Requesting Provider: JERE FERRO Attending Provider: Report Copy To: Signs & Symptoms: M19.90 Unspecified osteoarthritis, unspecified site I10 History: [place] Comments: , , , Ordering Provider - JERE FERRO MD , Exam: FOOT RIGHT 3 [facility] FOOT RIGHT 3 VWS, HAND LEFT 3 VWS, HAND RIGHT 3 VWS, FOOT LEFT 3 VWS 07/12/2018 12:13 PM EDT SIGNS AND SYMPTOMS: M19.90 Unspecified osteoarthritis, unspecified site I10 TECHNOLOGIST COMMENTS: Bilateral hand and foot pain, history of RA QUESTION FOR THE RADIOLOGIST: , , , Ordering Provider - JERE FERRO MD , PROTOCOL: AP,Lateral and Oblique views were obtained. COMPARISON: None FINDINGS: Bilateral hands: No erosions. Mild scattered spurring, most evident along the thumb CMC joints and the STT joints, slightly worse on the left Bilateral feet: No erosions. Severe bilateral big toe MTP joint osteoarthritis with complete loss of joint space. Small plantar spurs on calcaneus. Minor IP joint spurring but relatively intact midfoot except for some minor talonavicular arthritis. IMPRESSION: 1. Moderate osteoarthritis of the hands and fingers, predominantly at the thumb bases 2. Severe osteoarthritis of the bilateral big toe MTP joints 3. Mild bilateral talonavicular arthritis Electronically signed by:Marybeth Bonner. Transcribed by: [email or web address], User Resident: Electronically Signed by: MARYBETH BONNER @ 07/12/2018 04:26 PM Normal The [facility] Comment on above: Order Comment: , , = ========= , Ordering Provider - JERE FERRO MD , HAND LEFT 3 VWSon 07-12-2018 HAND LEFT 3 VWS [facility] Department of Radiology [address] [place] [id number] Patient Name: BETTYE LEONE : 1955 Sex: F Age: Race: White Pt. Location: 264 Patient Status: Ordered Date: 07/12/2018 11:50:00 AM Completed Date: 07/12/2018 12:13 PM Requesting Provider: JERE FERRO Attending Provider: Report Copy To: Signs & Symptoms: M19.90 Unspecified osteoarthritis, unspecified site I10 History: [place] Comments: , , , Ordering Provider - JERE FERRO MD , Exam: HAND LEFT 3 VWS FOOT RIGHT 3 VWS, HAND LEFT 3 VWS, HAND RIGHT 3 VWS, FOOT LEFT 3 VWS 07/12/2018 12:13 PM EDT SIGNS AND SYMPTOMS: M19.90 Unspecified osteoarthritis, unspecified site I10 TECHNOLOGIST COMMENTS: Bilateral hand and foot pain, history of RA QUESTION FOR THE RADIOLOGIST: , , , Ordering Provider - JERE FERRO MD , PROTOCOL: AP,Lateral and Oblique views were obtained. COMPARISON: None FINDINGS: Bilateral hands: No erosions. Mild scattered spurring, most evident along the thumb CMC joints and the STT joints, slightly worse on the left Bilateral feet: No erosions. Severe bilateral big toe MTP joint osteoarthritis with complete loss of joint space. Small plantar spurs on calcaneus. Minor IP joint spurring but relatively intact midfoot except for some minor talonavicular arthritis. IMPRESSION: 1. Moderate osteoarthritis of the hands and fingers, predominantly at the thumb bases 2. Severe osteoarthritis of the bilateral big toe MTP joints 3. Mild bilateral talonavicular arthritis Electronically signed by:Marybeth Bonner. Transcribed by: [email or web address], User Resident: Electronically Signed by: MARYBETH BNONER @ 07/12/2018 04:26 PM [place] [facility] Comment on above: Order Comment: , , = ========= , Ordering Provider - JERE FERRO MD , HAND RIGHT 3 VWSon 8 HAND RIGHT 3 VWS [facility] Department of Radiology [address] [place] [id number] Patient Name: BETTYE LEONE : 1955 Sex: F Age: Race: White Pt. Location: [facility] Patient Status: Ordered Date: 07/12/2018 11:50:00 AM Completed Date: 07/12/2018 12:13 PM Requesting Provider: JERE FERRO Attending Provider: Report Copy To: Signs & Symptoms: M19.90 Unspecified osteoarthritis, unspecified site I10 History: [place] Comments: , , , Ordering Provider - JERE FERRO MD , Exam: HAND RIGHT 3 VWS FOOT RIGHT 3 VWS, HAND LEFT 3 VWS, HAND RIGHT 3 VWS, FOOT LEFT 3 VWS 07/12/2018 12:13 PM EDT SIGNS AND SYMPTOMS: M19.90 Unspecified osteoarthritis, unspecified site I10 TECHNOLOGIST COMMENTS: Bilateral hand and foot pain, history of RA QUESTION FOR THE RADIOLOGIST: , , , Ordering Provider - JERE FERRO MD , PROTOCOL: AP,Lateral and Oblique views were obtained. COMPARISON: None FINDINGS: Bilateral hands: No erosions. Mild scattered spurring, most evident along the thumb CMC joints and the STT joints, slightly worse on the left Bilateral feet: No erosions. Severe bilateral big toe MTP joint osteoarthritis with complete loss of joint space. Small plantar spurs on calcaneus. Minor IP joint spurring but relatively intact midfoot except for some minor talonavicular arthritis. IMPRESSION: 1. Moderate osteoarthritis of the hands and fingers, predominantly at the thumb bases 2. Severe osteoarthritis of the bilateral big toe MTP joints 3. Mild bilateral talonavicular arthritis Electronically signed by:Marybeth Bonner. Transcribed by: [email or web address], User Resident: Electronically Signed by: MARYBETH BONNER @ 07/12/2018 04:26 PM Normal The [facility] Comment on above: Order Comment: , , = ========= , Ordering Provider - JERE FERRO MD , HEPATITIS A ANTIBODY [id number] 07-12-2018 HEP A ABS(TOTAL) Negative Normal Negative The [facility] Comment on above: Result Comment: Perf ormed by [employer], [address] [place] [address] [email or web address], Sergio Lee MD - Lab. Director HEPATITIS B CORE ANTIBODYon 07-12-2018 HEP B CORE AB NONREACTIVE Normal NONREACTIVE The [facility] Comment on above: Performed By: #### 4 1661, 05267, 69831, 75377, 22789 #### [facility] [address] HEPATITIS B SURFACE ANTIBODY QUANTon 07-12-2018 HEP B SURF AB 23.23 mIU/ml Normal The [facility] Comment on above: Result Comment: INTE RPRETATION: NONREACTIVE<8.00 mIU/mL INDETERMINATE8.00 - 12.00 mIU/mL REACTIVE>12 mIU/mL Performed By: #### 4 1661, 54552, 83416, 42334, 44606 #### [facility] [address] HEPATITIS B SURFACE ANTIGEN QUALon 07-12-2018 HEP B SURF AG QUAL NONREACTIVE Normal NONREACTIVE [facility] Comment on above: Performed By: #### 4 1661, 98631, 86804, 48474, 76834 #### [facility] [address] [facility] [place] [address], [facility] HEPATITIS C ANTIBODYon 07-12 ANTI-HCV NONREACTIVE Normal NONREACTIVE The [facility] Comment on above: Performed By: #### 4 1661, 09544, 61067, 67468, 42184 #### [facility] [address] [place] [address], [facility] HISTONE AB IGG [id number] 07-12 HISTONE AB IGG 1.3 Units High 0.0-0.9 The [facility] Comment on above: Result Comment: INTE RPRETIVE INFORMATION: Histone Ab, IgG 0.9 Units or less ............ Negative 1.0 - 1.5 Units .............. Weak Positive 1.6 - 2.5 Units .............. Moderate Positive 2.6 Units or greater ......... Strong Positive Performed by [employer], [address] [place] [address] [email or web address], Sergio Lee MD - Lab. Director IGG SUBCLASSES (1,2,3,4) 505 77on 07-12-2018 IGG SUBCLASS 1 454 mg/dL Normal 240-1118 The [facility] Comment on above: Result Comment: REFE RENCE INTERVAL: Immunoglobulin G Subclass 1 Access complete set of age- and/or gender-specific reference intervals for this test in the [email or web address] Laboratory Test Directory ([employer]). IGG SUBCLASS 2 541 mg/dL Normal 124-549 The [facility] Comment on above: Result Comment: REFE RENCE INTERVAL: Immunoglobulin G Subclass 2 Access complete set of age- and/or gender-specific reference intervals for this test in the [email or web address] Test Directory ([employer]). IGG SUBCLASS 3 64 mg/dL Normal 21-134 The [facility] Comment on above: Result Comment: REFE RENCE INTERVAL: Immunoglobulin G Subclass 3 Access complete set of age- and/or gender-specific reference intervals for this test in the [facility] Laboratory Test Directory ([employer]). IGG SUBCLASS 4 54 mg/dL Normal 1-123 The [facility] Comment on above: Result Comment: The total IgG (mg/dL) can be derived by the sum of the subclasses IgG1, IgG2, IgG3 and IgG4 values. However, a confirmatory and more precise total IgG is available by the nephelometric method of total IgG (Test # [id number]). REFERENCE INTERVAL: Immunoglobulin G Subclass 4 Access complete set of age- and/or gender-specific reference intervals for this test in the [facility] Test Directory ([employer]). Performed by [employer], [address] [place] [address] [email or web address], Sergio Lee MD - Lab. Director IMMUNOGLOBULIN Aon 8 IgA mass conc 156 mg/dL Normal 60-413 The [facility] Comment on above: Performed By: #### 5 0103, 47213 #### [facility] [address] IMMUNOGLOBULIN Klever 8 IgG mass conc 1170 mg/dL Normal 591-1540 The [facility] Comment on above: Performed By: #### 5 0103, 67419 #### [facility] [address] IMMUNOGLOBULIN Mon 8 IgM mass conc 53 mg/dL Low 54-285 The [facility] Comment on above: Performed By: #### 5 0103, 41423 #### [facility] [address] MPO/PR3 REFLEX TO ANCA 02508 80on 07-12-2018 ANCA <1:20 Normal <1:20 The [facility] Comment on above: Result Comment: The ANCA IFA is <1:20; therefore, no further testing will be performed. INTERPRETIVE INFORMATION: Anti-Neutrophil Cyto Ab, IgG Neutrophil Cytoplasmic Antibodies (C-ANCA = granular cytoplasmic staining, P-ANCA = perinuclear staining) are found in the serum of over 90 percent of patients with certain necrotizing systemic vasculitides, and usually in less than 5 percent of patients with collagen vascular disease or arthritis. MYELOPEROX AB (28576) 0 AU/mL Normal 0-19 [facility] Comment on above: Result Comment: INTE RPRETIVE INFORMATION: Myeloperoxidase Abs, IgG 19 AU/mL or Less ......... Negative 20-25 AU/mL .............. Equivocal 26 AU/mL or Greater ...... Positive Approximately 90% of patients with a P-ANCA pattern by IFA have antibodies specific for MPO. Protein mass conc 0 AU/mL Normal 0-19 The [facility] Comment on above: Result Comment: INTE RPRETIVE INFORMATION: Serine Protease 3, IgG 19 AU/mL or Less ........ Negative 20-25 AU/mL ............. Equivocal 26 AU/mL or Greater ..... Positive Approximately 85% of patients with a C-ANCA pattern by IFA have antibodies specific for PR3. Performed by [employer], [address] [place] [address] [email or web address], Sergio Lee MD - Lab. Director PROTEIN ELECT Fred 07-12-2018 Protein mass conc fractions of alpha 1, alpha 2, beta and gamma globulins. Normal The [facility] Comment on above: Performed By: #### 4 1661, 80452, 56505, 62449, 24502 #### [facility] [address] [place] [address], [facility] Protein mass conc 6.9 g/dL Normal 6.0-8.3 The [facility] Comment on above: Performed By: #### 4 1661, 96502, 73086, 98528, 12733 #### [facility] [address] [place] [address], [place] PROTEIN ELECT URon 8 Protein mass conc 5.0 mg/dL Normal The [facility] Comment on above: Result Comment: Ther e are no established reference values for random urine specimens Performed By: #### 4 9 #### [facility] [address] [place] [address], [facility] Protein mass conc URINE PROTEIN ELECTROPHORESIS NOT DONE; T.P. <10 MG/DL Normal The [facility] Comment on above: Performed By: #### 4 1919 #### [facility] [address] [place] [address], [facility] SEDIMENTATION RATEon 018 SED RATE 24 mm/hr High 0-20 [facility] Comment on above: Performed By: #### 5 0103, 93869 #### [facility] [address] [place] [address], [facility] SJOGRENS ANTIBODIESon 2017 SS-A Negative Normal NEG,NEGATIVE,Ne g [facility] Comment on above: Performed By: #### 0 0121 #### [facility] [address] [facility] [place] [address], [facility] SS-B Negative Normal NEG,NEGATIVE,Ne g [facility] Comment on above: Performed By: #### 0 0121 #### [facility] [address] [facility] [place] [address], [facility] TB QUANTIFERONon 07-12-2018 MITOGEN MINUS NIL >=10 Normal The [facility] Comment on above: Performed By: #### 0 0121 #### [facility] [address] [facility] [place] [address], [facility] NIL 0.07 IU/mL Normal [facility] Comment on above: Performed By: #### 0 0121 #### [facility] [address] [place] [address], [facility] TB AG MINUS NIL 0.01 IU/mL Normal The [facility] Comment on above: Performed By: #### 0 0121 #### [facility] [address] [facility]. [address] TB ANTIGEN 0.08 IU/mL Normal The [facility] Comment on above: Performed By: #### 0 0121 #### [facility] [address] TB QUANTIFERON Negative Normal NEGATIVE The [facility] Comment on above: Result Comment: Marc tiferon TB Gold Interpretation (IU/mL): NEGATIVE: M. tuberculosis infectioN not likely Nil: <=8.0 TB Antigen minus Nil (TBAG-NIL): <0.35 OR >=0.35; and <25% of Nil value Mitogen minus Nil (NANO-NIL): >=0.50 NOTE: Diagnosing or excluding tuberculosis disease, and assessing the probability of LTBI, requires a combination of epidemiological, historical, medical, and diagnostic findings that should be taken into account when interpreting QuantiFERON (TM)-TB Gold results. See general guidance on the diagnosis and treatment of TB disease and LTBI (http://www.cdc.gov/nchstp/tb/). Performed By: #### 0 0121 #### [facility] [address] [facility]. [address] Vital Signs Date Time Vital Sign Value Performing Clinician Facility 01-31-2025 15:29-0400 Body height 154.9 cm Preston Riggins MD Work Phone: [facility] 01-31-2025 15:29-0400 Body mass index (BMI) [Ratio] 31.93 kg/m2 Preston Riggins MD Work Phone: [facility] 01-31-2025 15:29-040 Body weight 76.66 kg Preston Riggins MD Work Phone: [facility] 01-31-2025 15:29-0400 Diastolic blood pressure 82 mm[Hg] Preston Riggins MD Work Phone: [facility] 01-31-2025 15:29-0400 Heart rate 64 /min Preston Riggins MD Work Phone: [facility] 01-31-2025 15:29-0400 SaO2% (BldA) [Mass fraction] 95 % Preston Riggins MD Work Phone: [facility] 01-31-2025 15:29-0400 Systolic blood pressure 130 mm[Hg] Preston Riggins MD Work Phone: [facility] 01-11-2025 16:08-0500 Body height 154.9 cm Erika Huynh MD Work Phone: [facility] 01-11-2025 16:08-0500 Body mass index (BMI) [Ratio] 32.12 kg/m2 Erika Huynh MD Work Phone: [facility] 01-11-2025 16:08-0500 Body weight 77.11 kg Erika Huynh MD Work Phone: [facility] 06-27-2024 15:15-0400 Body height 154.9 cm Mattie Hemmer PA Work Phone: [facility] 06-27-2024 15:15-0400 Body mass index (BMI) [Ratio] 31.67 kg/m2 Mattie Hemmer PA Work Phone: [facility] 06-27-2024 15:15-0400 Body weight 76.02 kg Mattie Hemmer PA Work Phone: [facility] 06-27-2024 15:15-0400 Diastolic blood pressure 82 mm[Hg] Mattie Hemmer PA Work Phone: [facility] 06-27-2024 15:15-0400 Heart rate 59 /min Mattie Hemmer PA Work Phone: [facility] 06-27-2024 15:15-0400 Respiratory rate 16 /min Mattie Hemmer PA Work Phone: [facility] 06-27-2024 15:15-0400 SaO2% (BldA) [Mass fraction] 96 % Mattie Hemmer PA Work Phone: [facility] 06-27-2024 15:15-0400 Systolic blood pressure 136 mm[Hg] Mattie ZAYAS Work Phone: [facility] Healthcare Encounters Encounter Date Encounter Type Care Provider Facility Start: 04-15-2025 End: 04-15-[address] [facility] Start: 03-19-2025 End: 03-19-2025 ambulatory BRANDON VELAZCO [facility] Start: 03-07-2025 End: 03-07-[address] [facility] Start: 03-07-2025 End: 03-07-[address] [facility] Start: 02-20-2025 End: 02-20-2025 [facility] Start: 01-31-2025 End: 01-31-2025 Office outpatient visit 25 minutes Preston Riggins MD Work Phone: [facility] Comment on above: Chronic kidney disea se, stage 3a (HCC) (CMS/HCC) (Primary Dx); Major depressive disorder, recurrent, moderate (CMS/HCC); Parkinsonism, unspecified (CMS/HCC); Essential hypertension (CMS/HCC); Type 2 diabetes mellitus with stage 3a chronic kidney disease, without long-term current use of insulin (HCC) (CMS/HCC); Microalbuminuric diabetic nephropathy (CMS/HCC); Acquired hypothyroidism (CMS/HCC); Hypothyroidism, unspecified (CMS/HCC) Start: 01-31-2025 End: 01-31-2025 ambulatory PRESTON RIGGINS Not Available Start: 01-11-2025 End: 01-11-2025 Office outpatient new 45 minutes Brandon Velazco MD Work Phone: [facility] [place] Comment on above: Parkinsonism, unspec ified Parkinsonism type (CMS-HCC) (Primary Dx); Dysphagia, unspecified type; Gait instability; Tardive dyskinesia; Major depressive disorder, recurrent episode, moderate (CMS-HCC); Generalized anxiety disorder; Dependent personality disorder (CMS-HCC); Involuntary movements; Chronic idiopathic constipation Start: 01-11-2025 End: 03-07-2025 ambulatory [facility] Start: 12-27-2024 End: 12-27-2024 ambulatory [facility] Start: 10-26-2024 End: 10-26-2024 Telephone encounter Marietta Sharma [facility] Comment on above: 12/14/24 [facility] RESCHE DULE Start: 10-11-2024 End: 10-11-2024 Office outpatient visit 25 minutes Guicho Nguyen MD Work Phone: [facility] Comment on above: Left knee pain, unsp ecified chronicity (Primary Dx) Start: 10-11-2024 End: 10-11-2024 ambulatory [facility] Start: 09-25-2024 End: 09-25-2024 ambulatory [place] [facility] Start: 09-18-2024 End: 09-18-2024 Office outpatient new 45 minutes Anali Sarmiento MD Work Phone: [facility] Comment on above: Other seborrheic eddie matitis (Primary Dx) Start: 09-18-2024 End: 09-18-2024 ambulatory ANALI SARMIENTO Not Available Start: 09-18-2024 End: 09-18-2024 Bamrosa Sarmiento MD Work Phone: [facility] Start: 09-18-2024 End: 09-18-2024 Parvez Sarmiento MD Work Phone: [facility] Start: 08-16-2024 End: 08-16-2024 Subsequent hospital visit by physician Yanci Larson X-Ray 1 [facility] Comment on above: Left knee pain, unsp ecified chronicity Start: 08-16-2024 End: 08-16-2024 Office outpatient new 30 minutes Guicho Nguyen MD Work Phone: [facility] Comment on above: Left knee pain, unsp ecified chronicity (Primary Dx) Start: 08-16-2024 End: 08-16-2024 ambulatory [facility] Start: 06-27-2024 End: 06-27-2024 Patient encounter procedure Mattie ZAYAS Work Phone: [facility] Comment on above: Medicare annual well ness visit, subsequent (Primary Dx); ACP (advance care planning); Encounter for screening mammogram for malignant neoplasm of breast; Estrogen deficiency; Tardive dyskinesia; Dyspnea on exertion; Essential hypertension (CMS/HCC); Palpitations; Chronic kidney disease, stage 3a (HCC) (CMS/HCC); Microalbuminuria; Postmenopausal atrophic vaginitis; Fibromyalgia; Acquired hypothyroidism (CMS/HCC); IGT (impaired glucose tolerance); Microalbuminuric diabetic nephropathy (CMS/HCC); Type 2 diabetes mellitus with stage 3a chronic kidney disease, without long-term current use of insulin (HCC) (CMS/HCC); Bilateral tinnitus; Decreased estrogen level; Dizziness; Generalized anxiety disorder (CMS/HCC); H/O herpes zoster; H/O total hysterectomy; Hypercholesteremia (CMS/HCC); Major depressive disorder, recurrent, moderate (HCC) (CMS/HCC); Noncompliance with treatment; Posttraumatic stress disorder (CMS/HCC); Rash of face; Sensorineural hearing loss, bilateral; Class 1 obesity due to excess calories with serious comorbidity and body mass index (BMI) of 31.0 to 31.9 in adult Start: 06-27-2024 End: 06-27-2024 ambulatory MATTIE DELGADO Not Available Start: 06-27-2024 End: 06-27-2024 Bamboo flowsshashank ZAYAS Work Phone: [facility] Start: 06-27-2024 End: 06-27-2024 Bamboo flowsshashank ZAYAS Work Phone: [facility] Start: 05-22-2024 End: 05-22-2024 ambulatory BRANDON VELAZCO [facility] Start: 05-08-2024 End: 05-08-2024 ambulatory PRESTON RIGGINS Not Available Start: 03-14-2024 End: 03-19-2024 Telephone encounter Danuta Munroe [facility] Comment on above: NEW PATIENT REFERRAL Start: 07-24-2021 End: 07-25-[address] PRESTON RIGGINS Facility:[facility] Start: 07-04-2021 End: 07-04-[address] KRISTI MOJICA Facility:[facility] Start: 06-20-2021 End: 06-21-[address] PRESTON RIGGINS Facility: Start: 11-23-2018 End: 11-24-2018 Patient encounter procedure DEFAULT PHYSICIAN Facility:[facility] Start: 07-20-2018 End: 07-21-2018 Patient encounter procedure DEFAULT PHYSICIAN Facility:[facility] Start: 07-12-2018 End: 07-13-2018 Patient encounter procedure JERE FERRO Facility:[facility] Start: 06-27-2018 End: 06-28-2018 Patient encounter procedure DEFAULT PHYSICIAN Facility:[facility] Procedures Date Procedure Procedure Detail Performing Clinician Start: 01-11-2025 Adult depression screening assessment Erika Huynh MD Work Phone: Start: 07-13-2024 Mammography Anali Sarmiento MD Work Phone: Start: 05-11-2023 History of total hysterectomy H/O total hysterectomy Mattie Hemmer PA Work Phone: Start: 07-24-2021 Mammography Mattie Hemmer PA Work Phone: Start: 04-04-2015 Colonoscopy Mattie Hemshanna PA Work Phone: History of total hysterectomy H/O total hysterectomy Mattie Huerta Hemmer PA Work Phone: Plan of Treatment Date Care Activity Detail Author Start: 02-14-2031 RSV High Risk: (Elde rly (60+) or Population) (1 - 1-dose 75+ series) RSV High Risk: (Elderly (60+) or Population) (1 - 1-dose 75+ series) [facility] Start: 06-27-2026 Glaucoma screening Diabetes: R etinopathy Screening [facility] Start: 06-09-2026 Screening for malign ant neoplasm of colon [facility] Start: 05-31-2026 Screening for malign ant neoplasm of colon [facility] Start: 01-11-2026 Adult BMI Screening Adult BMI Screen ing [facility] Start: 01-11-2026 Depression Screening Depression Scre ening [facility] Start: 01-11-2026 Tobacco Screening Tobacco Screening [facility] Start: 07-13-2025 Screening for malign ant neoplasm of breast Mammogram [facility] Healthcare Start: 06-27-2025 Medicare Annual Wellness (AWV) Medicare Annual Wellness (AWV) [facility] Start: 05-01-2025 Hemoglobin A1c measurement Diabetes: Hemoglobin A1C [facility] Start: 04-15-2025 End: 04-15-2025 Telemedicine consultation with patient 04/15/2025 2:30 PM EDT Telemedicine [facility] Neurology, A Department of [address] [place] [phone] Erika Huynh MD [address] [place] [address] [address] [place] [phone] [facility] Neurology, A Department of [facility] Start: 04-04-2025 Screening for malign ant neoplasm of colon Colonoscopy [facility] Start: 03-07-2025 End: 03-07-2025 Patient encounter procedure 03/07/2025 1:[address] [facility] [address] [place] [phone] Erika Huynh MD [address] [place] [address] [address] [place] [phone] [facility] Start: 03-07-2025 End: 03-07-2025 Patient encounter procedure 03/07/2025 10:[address] [facility] [address] [place] [address] Erika Huynh MD [address] [place] [address] [address] [place] [phone] [facility] Medicine Start: 03-07-2025 Subsequent hospital visit by physician 03/07/2025 9:30 AM EDT Hospital Encounter [facility] Medicine [address] [facility] [place] [phone] Erika Huynh MD [address] [place] [address], [address] [place] [phone] [facility] Start: 02-20-2025 End: 02-20-2025 Patient encounter procedure 02/20/2025 1:15 PM EDT Appointment [facility] [address] [place] [phone] Erika Huynh MD [address] [place] [address], [address] [place] [phone] [facility] Start: 01-11-2025 End: 01-11-2025 Patient encounter procedure 01/11/2025 4:00 PM EST Office Visit [facility] [address] [place] [address] [place] [phone] Brandon Velazco MD [address] [place] [address] Erika Huynh MD [address] [place] [address], [address] [place] [address] [facility] Start: 01-11-2025 End: 01-11-2026 MR Brain WO contrast MR brain without contrast Imaging Routine Parkinsonism, unspecified Parkinsonism type (CMS-HCC) Gait instability Involuntary movements Expected: 01/11/2025, Expires: 01/11/2026 [facility] Work Phone: Comment on above: Expected: 01/11/2025 , Expires: 01/11/2026 Start: 01-11-2025 End: 01-11-2026 SPECT Brain NM brain imaging SPECT Imaging Routine Parkinsonism, unspecified Parkinsonism type (CMS-HCC) Gait instability Involuntary movements Expected: 01/11/2025, Expires: 01/11/2026 [facility] Comment on above: Expected: 01/11/2025 , Expires: 01/11/2026 Start: 12-31-2024 End: 12-31-2024 Patient encounter procedure 12/31/2024 3:00 PM EST Office Visit [facility] [address] [place] [address] Preston Riggins MD [address] [place] [address] [facility] Start: 11-03-2024 Urine screening for protein Diabetes: Urine Protein Screening [facility] Healthcare Start: 10-26-2024 End: 10-26-2024 Patient encounter procedure 10/26/2024 1:15 PM EST Office Visit [facility] [address] [place] [address] Anali Sarmiento MD [address] [place] [address] [facility] Start: 10-04-2024 Urine screening for protein Diabetes: Urine Protein Screening [facility] Start: 08-16-2024 End: 08-16-2025 MR Knee - left WO contrast MR knee left wo IV contrast Imaging Routine Left knee pain, unspecified chronicity Expected: 08/16/2024, Expires: 08/16/2025 [facility] Work Phone: Comment on above: Expected: 08/16/2024 , Expires: 08/16/2025 Start: 08-16-2024 End: 08-16-2025 XR Knee - left 4 Views [facility] Service Area Work Phone: Comment on above: Expected: 08/16/2024 , Expires: 08/16/2025 Once for 1 Occurrenc es starting 08/16/2024 until 08/16/2024 Start: 08-10-2024 End: 08-10-2024 Patient encounter procedure 08/10/2024 3:00 PM EDT Office Visit [facility] [address] [place] [address] [address] [facility] [phone] Brandon Velazco MD [address] [place] [address] [place] [address] Erika Huynh MD [address] [place] [address], [address] [place] [phone] [facility] Start: 08-08-2024 Hemoglobin A1c measurement Diabetes: Hemoglobin A1C [facility] Healthcare Start: 07-08-2024 COVID-19 Vaccine () COVID-19 Vaccine () [facility] Start: 07-08-2024 COVID-19 Vaccine () COVID-19 Vaccine () [facility] Start: 07-08-2024 Influenza vaccination [facility] Start: 06-27-2024 End: 06-27-2024 Patient encounter procedure 06/27/2024 3:00 PM EDT Office Visit [facility] [address] [facility] [address] [place] [phone] Mattie Delgado PA [address] [facility] [address] [place] [address] Arrived [facility] Comment on above: Arrived Start: 06-27-2024 End: 08-27-2025 DBT Breast - bilateral screening Bilateral screening mammogram with tomosynthesis Imaging Routine Encounter for screening mammogram for malignant neoplasm of breast Expected: 06/27/2024, Expires: 08/27/2025 [facility] Work Phone: Comment on above: Expected: 06/27/2024 , Expires: 08/27/2025 Start: 06-27-2024 End: 06-27-2025 DXA Skeletal system Views for bone density DEXA bone density Imaging Routine Estrogen deficiency Expected: 06/27/2024, Expires: 06/27/2025 [facility] Comment on above: Expected: 06/27/2024 , Expires: 06/27/2025 Start: 05-24-2024 Medicare Annual Wellness (AWV) Medicare Annual Wellness (AWV) [facility] Start: 04-13-2024 Glaucoma screening Diabetes: R etinopathy Screening [facility] Start: 07-08-2023 COVID-19 Vaccine () COVID-19 Vaccine () [facility] Start: 09-25-2022 DTaP,Tdap and Td Vaccines (2 - Td or Tdap) DTaP,Tdap and Td Vaccines (2 - Td or Tdap) [facility] Start: 09-25-2022 DTaP/Tdap/Td Vaccine s (2 - Td or Tdap) DTaP/Tdap/Td Vaccines (2 - Td or Tdap) [facility] Start: 07-24-2022 Screening for malign ant neoplasm of breast Mammogram [facility] Start: 02-14-2021 Fall Risk Screening Fall Risk Screen ing [facility] Start: 08-31-2019 Screening for malign ant neoplasm of colon FIT [facility] Start: 2016 RSV patient s and/or patients aged 60+ years (1 - 1-dose 60+ series) RSV patients and/or patients aged 60+ years (1 - 1-dose 60+ series) [facility] Start: 02-14-1974 Adult BMI Follow Up Plan Adult BMI Follow Up Plan [facility] Start: 02-14-1974 Adult BMI Screening Adult BMI Screen ing [facility] Start: 02-14-1974 Diabetes mellitus screening Diabetes Screening [facility] Start: 02-14-1974 Hepatitis C screening Hepatitis C Sc reening [facility] Start: 1968 Depression Screening Depression Scre ening [facility] Start: 1968 Tobacco Screening Tobacco Screening [facility] Start: 1956 Annual wellness visit Welcome to Medicare Visit [facility] Start: 1956 Lipid panel Lipid Panel [facility] Start: 1956 Medicare Annual Wellness Visit Medicare Annual Wellness Visit (AWV) [facility] Start: 1956 Screening for malign ant neoplasm of [facility] Immunizations Immunization Date Immunization Notes Care Provider Fa alma 10-27-2023 pneumococcal polysaccharide vaccine, 23 valent Mattie Hemmer PA Work Phone: [facility] 10-03-2023 Influenza, High-dose Seasonal, Quadrivalent, Preservative Free Mattie Hemmer PA Work Phone: [facility] 10-03-2023 influenza virus vacc ine, unspecified formulation [facility] 08-24-2022 Influenza, High-dose Seasonal, Quadrivalent, Preservative Free Mattie Hemmer PA Work Phone: [facility] 03-11-2022 zoster vaccine recombinant Mattie Hemmer PA Work Phone: [facility] 11-06-2021 zoster vaccine recombinant Mattie Hemmer PA Work Phone: [facility] 10-26-2021 Influenza, injectabl e, Madin Iman Canine Kidney, preservative free, quadrivalent Mattie Hemmer PA Work Phone: [facility] 09-03-2021 Moderna SARS-CoV-2 Vaccination Mattie Hemmer PA Work Phone: [facility] 08-18-2020 influenza, injectabl e, quadrivalent, preservative free Mattie Hemmer PA Work Phone: [facility] 08-09-2019 seasonal influenza, intradermal, preservative free Mattie Hemmer PA Work Phone: [facility] 09-26-2018 pneumococcal conjuga te vaccine, 13 valent Mattie Hemmer PA Work Phone: [facility] 09-26-2018 seasonal influenza, intradermal, preservative free Mattie Hemmer PA Work Phone: [facility] 09-08-2017 pneumococcal polysaccharide vaccine, 23 valent Mattie Hemmer PA Work Phone: [facility] 09-08-2017 seasonal influenza, intradermal, preservative free Mattie Hemmer PA Work Phone: [facility] 08-22-2016 influenza, seasonal, injectable, preservative free Mattie Hemmer PA Work Phone: [facility] 08-22-2015 influenza, seasonal, injectable, preservative free Mattie Hemmer PA Work Phone: [facility] 09-11-2014 seasonal influenza, intradermal, preservative free Mattie Hemmer PA Work Phone: [facility] 09-25-2012 tetanus toxoid, redu renu diphtheria toxoid, and acellular pertussis vaccine, adsorbed Mattie Hemmer PA Work Phone: [facility] Payers Date Payer Category Payer Medicare HMO [id number] 2024 Medicare [id number] 2023 Medicare (Managed Care) 1.2. [id number] 2023 Unknown 2023 Unknown [id number] 1959 Unknown [id number] 1956 Unknown [id number] 2.16.8 40.1.133578.3.579.2.647 1956 Unknown [id number] 2.16.8 40.1.782530.3.579.2.647 1956 Unknown [id number] 2.16.8 40.1.777799.3.579.2.647 1956 Unknown [id number] 2.16.8 40.1.184434.3.579.2.647 1956 Unknown [id number] 2.16.84 0.1.569981.3.579.2.593 1956 Unknown [id number] 2.16.84 0.1.270499.3.579.2.593 1956 Unknown [id number] 2.16.84 0.1.636315.3.579.2.593 1956 Unknown [id number] 2.16. 840.1.425466.3.579.2.1244 1956 Unknown [id number] 2.16.8 40.1.210616.3.579.2.1245 1956 Unknown [id number] 2.16.8 40.1.458053.3.579.2.1245 1956 Unknown [id number] 2.16. 840.1.439127.3.579.2.1243 1956 Unknown [id number] 2.16. 840.1.935529.3.579.2.1285 1956 Unknown [id number] 2.16.84 0.1.396630.3.579.2.1258 1956 Unknown [id number] 2.16.84 0.1.648377.3.579.2.1258 1956 Unknown [id number] 2.16.84 0.1.602797.3.579.2.1258 1956 Unknown [id number] 2.16.84 0.1.816270.3.579.2.1258 1956 Unknown [id number] 2.16. 840.1.469476.3.579.2.1285 1956 Unknown [id number] 2.16. 840.1.409126.3.579.2.1285 1956 Unknown [id number] 2.16. 840.1.422976.3.579.2.1285 1956 Unknown [id number] 2.16.8 40.1.523201.3.579.2.1285 1956 Unknown [id number] 2.16.8 40.1.241114.3.579.2.1285 1956 Unknown [id number] 2.16. 840.1.058713.3.579.2.1285 1956 Unknown [id number] 2.16. 840.1.846375.3.579.2.1286 1956 Unknown [id number] 2.16. 840.1.962574.3.579.2.1286 1956 Unknown [id number] 2.16. 840.1.893176.3.579.2.1286 Unknown [id number] Social History Date Type Detail Facility Start: 10-11-2024 [facility] Start: 1955 Sex assigned at Not on file [facility] Start: 05-17-2024 End: 01-31-2025 Gender identity Not on file [facility] Work Phone: Start: 08-06-2024 End: 10-11-2024 Exposure to SARS-CoV-2 (event) Not sure [facility] Start: 04-25-2023 End: 01-11-2025 Tobacco smoking status INIS Never smoked tobacco [facility] Start: 04-25-2023 End: 01-11-2025 Tobacco use and exposure Smokeless tobacco non-user [facility] Start: 09-18-2024 End: 01-31-2025 Alcoholic beverage intake Lifetime non-drinker (finding) [facility] Start: 05-17-2024 End: 01-31-2025 History of Social function [facility] How often do you nee d to have someone help you when you read instructions, pamphlets, or other written material from your doctor or pharmacy [SILS] Never [facility] Within the last year , have you been afraid of your partner or ex-partner? No [facility] Are you now , , , , never or living with a partner? [facility] Do you feel stress - tense, restless, nervous, or anxious, or unable to sleep at night because your mind is troubled all the time - these days [OSQ] Not at all [facility] (I/We) worried wheth er (my/our) food would run out before (I/we) got money to buy more. Never true [facility] Start: 05-24-2023 Alcohol Comment Caffeine intak e: more than 4 cups per day coffee, soda [facility] Start: 06-11-2015 Sex Female (finding) [facility] Start: 01-28-2025 Alcoholic beverage intake Ex-drinker (finding) [facility] Clinical Notes 03-14-2024 to 01-31-2025 Preston Riggins MD - 01/31/2025 3:36 PM Brooklyn Riggins MD - 01/31/2025 3:34 PM Brooklyn Riggins MD - 01/31/2025 3:34 PM Brooklyn Riggins MD - 01/31/2025 3:33 PM EDT Note Date & Type Note Facility 01-31-2025 History of Presen t illness Narrative Associated Problem(s): Hypothyroid (CMS/HCC) Increase dose Associated Problem(s): Major depressive disorder, recurrent, moderate (CMS/HCC) In remission Associated Problem(s): Microalbuminuric diabetic nephropathy (CMS/HCC) Increase fluids Associated Problem(s): Type 2 diabetes mellitus with diabetic chronic kidney disease (CMS/HCC) No Tobacco use Follow ADA 1800 diet [...] and importance of healthy diet and exercise. Associated Problem(s): Essential hypertension (CMS/HCC) Our specific goals, for your hypertension, is [...] taking them as prescribed. DASH diet handouts Associated Problem(s): Chronic kidney disease, stage 3a (HCC) (CMS/HCC) Resolved, improved with GFR 69 Images from the original note were not included. Subjective Patient ID: Bettye Muse is a 69 y.o. female who presents for Diabetes. Pt has a red dot on the right side of her cheek been there for about three weeks , not painful , does not itch Diabetes She presents for her follow-up diabetic visit. She has type 2 diabetes mellitus. No MedicAlert identification noted. The initial diagnosis of diabetes was made 4 years ago. Her disease course has been stable. There are no hypoglycemic associated symptoms. Pertinent negatives for hypoglycemia include no confusion, dizziness, nervousness/anxiousness, speech difficulty or tremors. There are no diabetic associated symptoms. Pertinent negatives for diabetes include no chest pain and no fatigue. There are no hypoglycemic complications. Symptoms are stable. There are no diabetic complications. Risk factors for coronary artery disease include diabetes mellitus and hypertension. She is compliant with treatment all of the time. She is following a diabetic diet. Meal planning includes avoidance of concentrated sweets. She has not had a previous visit with a dietitian. She rarely participates in exercise. There is no change in her home blood glucose trend. An RUSS inhibitor/angiotensin II receptor shawn is being taken. 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 Current Outpatient Medications on File Prior to Visit Medication Sig Dispense Refill atenolol (Tenormin) 50 MG tablet TAKE 1 TABLET BY MOUTH IN THE MORNING 100 tablet 3 atorvastatin (Lipitor) 20 MG tablet TAKE 1 TABLET BY MOUTH DAILY 100 tablet 3 Biotin 1000 MCG chewable tablet Chew Daily. cholecalciferol (Vitamin D-3) 125 MCG (5000 UT) capsule Take 5,000 Units by mouth Daily ciclopirox (Loprox) 0.77 % cream Apply thin layer to affected area once a day, 30 day supply 90 g 11 dapagliflozin (Farxiga) 5 MG Take 1 tablet (5 mg) by mouth Daily 100 tablet 3 Ingrezza 80 MG capsule Take 80 mg by mouth in the morning. lamoTRIgine (LaMICtal) 150 MG tablet Take 150 mg by mouth in the morning. losartan (Cozaar) 100 MG tablet TAKE 1 TABLET BY MOUTH DAILY 100 tablet 3 metFORMIN (Glucophage) 500 MG tablet TAKE 1 TABLET BY MOUTH IN THE MORNING with BREAKFAST 100 tablet 3 traZODone (Desyrel) 50 MG tablet Take 50 mg by mouth at bedtime. venlafaxine XR (Effexor XR) 150 MG 24 hr capsule Take 2 capsules by mouth in the morning and 2 capsules before bedtime. [DISCONTINUED] calcium carbonate (Calcium 600) 600 MG tablet Take 1 tablet (600 mg) by mouth in the morning and 1 tablet (600 mg) in the evening. Take with meals. [DISCONTINUED] meloxicam (Mobic) 15 MG tablet Take 15 mg by mouth in the morning. Take with meals. [DISCONTINUED] Multiple Vitamins-Minerals (HAIR SKIN & NAILS PO) Take 1 tablet by mouth Daily [DISCONTINUED] thyroid ([place] Thyroid) 90 MG tablet Take 1 tablet (90 mg) by mouth See administration instructions TAKE 1 TABLET BY MOUTH DAILY except take ONE-HALF OF a TABLET BY MOUTH on tuesday and tuesday 36 tablet 12 No current facility-administered medications on file prior to visit. I have reviewed and reconciled the history and medication list with the patient today. Allergies Allergen Reactions Aripiprazole Brexpiprazole Other Reaction(s): Other Tardive Dyskinesia Nalbuphine Shellfish-Derived Products Shrimp Extract Other Reaction(s): Not available Social History Tobacco Use Smoking status: Never Smokeless tobacco: Never Vaping Use Vaping status: Never Used Substance Use Topics Alcohol use: Never Comment: Caffeine intake: more than 4 cups per day coffee, soda Drug use: Never Family History Problem Relation Name Age of Onset Cancer Mother Isabel Reyes Diabetes Mother Isabel Reyes Diabetes Maternal Grandmother Laddaniela Gilbert Bipolar disorder Granddaughter Past Medical History: Diagnosis Date Anxiety Asthma (CMS/HCC) CKD (chronic kidney disease), stage III (HCC) (CMS/HCC) Depression (CMS/HCC) Dizziness About a year Ear problems 2018 Fibromyalgia H/O bladder repair surgery H/O echocardiogram 11/23/2018 Echo EF55-60% LV normal size,, no RMWA, grade 1 DD, breast implants H/O exercise stress test 05/18/2018 normal Head trauma History of psychiatric care hospitalized once for mental health in [place], one in [place] and once in [facility] (hearing loss) Many years Hypercholesterolemia (CMS/HCC) Hypertension (CMS/HCC) Hypothyroid (CMS/HCC) Migraine headache (CMS/HCC) Palpitations 1983, 1979, 1974 PTSD (post-traumatic stress disorder) (CMS/HCC) Thyroid disease (CMS/HCC) Tinnitus for years Visit for review of DEXA scan 07/24/2021 normal Past Surgical History: Procedure Laterality Date ADENOIDECTOMY 1977 APPENDECTOMY 1966 BLADDER REPAIR BLADDER SURGERY x4 COSMETIC SURGERY 1994 DILATION AND CURETTAGE 1994 HYSTERECTOMY 1988 LASIK 1998 MI ENLARGE BREAST 1998 TONSILLECTOMY 1979 Visit Vitals BP 130/82 Pulse 64 Ht 5' 1 Wt 169 lb SpO2 95% BMI 31.93 kg/m Smoking Status Never BSA 1.82 m Review of Systems Constitutional: Negative for fatigue. Cardiovascular: Negative for chest pain. Neurological: Negative for dizziness, tremors and speech difficulty. Psychiatric/Behavioral: Negative for confusion. The patient is not nervous/anxious. Objective Physical Exam Telephone on 01/22/2025 Component Date Value Ref Range Status WHITE BLOOD CELL COUNT 01/29/2025 7.6 3.8 - 10.8 Thousand/uL Final RED BLOOD CELL COUNT 01/29/2025 4.91 3.80 - 5.10 Million/uL Final HEMOGLOBIN 01/29/2025 15.1 11.7 - 15.5 g/dL Final HEMATOCRIT 01/29/2025 45.5 (H) 35.0 - 45.0 % Final MCV 01/29/2025 92.7 80.0 - 100.0 fL Final MCH 01/29/2025 30.8 27.0 - 33.0 pg Final MCHC 01/29/2025 33.2 32.0 - 36.0 g/dL Final Comment: For adults, a slight decrease in the calculated MCHC value (in the range of 30 to 32 g/dL) is most likely not clinically significant; however, it should be interpreted with caution in correlation with other red cell parameters and the patient's clinical condition. RDW 01/29/2025 12.2 11.0 - 15.0 % Final PLATELET COUNT 01/29/2025 373 140 - 400 Thousand/uL Final MPV 01/29/2025 10.4 7.5 - 12.5 fL Final ABSOLUTE NEUTROPHILS 01/29/2025 5,290 1,500 - 7,800 cells/uL Final ABSOLUTE LYMPHOCYTES 01/29/2025 1,718 850 - 3,900 cells/uL Final ABSOLUTE MONOCYTES 01/29/2025 456 200 - 950 cells/uL Final ABSOLUTE EOSINOPHILS 01/29/2025 84 15 - 500 cells/uL Final ABSOLUTE BASOPHILS 01/29/2025 53 0 - 200 cells/uL Final NEUTROPHILS 01/29/2025 69.6 % Final LYMPHOCYTES 01/29/2025 22.6 % Final MONOCYTES 01/29/2025 6.0 % Final EOSINOPHILS 01/29/2025 1.1 % Final BASOPHILS 01/29/2025 0.7 % Final Glucose 01/29/2025 105 (H) 65 - 99 mg/dL Final Comment: Fasting reference interval For someone without known diabetes, a glucose value between 100 and 125 mg/dL is consistent with prediabetes and should be confirmed with a follow-up test. BUN 01/29/2025 10 7 - 25 mg/dL Final Creatinine 01/29/2025 0.91 0.50 - 1.05 mg/dL Final EGFR 01/29/2025 69 > OR = 60 mL/min/1.73m2 Final BUN/CREATININE RATIO 01/29/2025 SEE NOTE: (calc) Final Comment: Not Reported: BUN and Creatinine are within reference range. Sodium 01/29/2025 142 135 - 146 mmol/L Final Potassium, Bld 01/29/2025 3.8 3.5 - 5.3 mmol/L Final Chloride 01/29/2025 102 98 - 110 mmol/L Final Carbon Dioxide 01/29/2025 31 20 - 32 mmol/L Final Calcium 01/29/2025 9.3 8.6 - 10.4 mg/dL Final PROTEIN, TOTAL 01/29/2025 7.0 6.1 - 8.1 g/dL Final ALBUMIN 01/29/2025 4.6 3.6 - 5.1 g/dL Final GLOBULIN 01/29/2025 2.4 1.9 - 3.7 g/dL (calc) Final ALBUMIN/GLOBULIN RATIO 01/29/2025 1.9 1.0 - 2.5 (calc) Final BILIRUBIN, TOTAL 01/29/2025 0.7 0.2 - 1.2 mg/dL Final ALKALINE PHOSPHATASE 01/29/2025 118 37 - 153 U/L Final AST 01/29/2025 14 10 - 35 U/L Final ALT 01/29/2025 11 6 - 29 U/L Final CHOLESTEROL, TOTAL 01/29/2025 184 <200 mg/dL Final HDL CHOLESTEROL 01/29/2025 65 > OR = 50 mg/dL Final TRIGLYCERIDES 01/29/2025 119 <150 mg/dL Final LDL-CHOLESTEROL 01/29/2025 97 mg/dL (calc) Final Comment: Reference range: <100 Desirable range <100 mg/dL for primary prevention; <70 mg/dL for patients with CHD or diabetic patients with > or = 2 CHD risk factors. LDL-C is now calculated using the Juan Carlos-Camacho calculation, which is a validated novel method providing better accuracy than the Friedewald equation in the estimation of LDL-C. Juan Carlos HOOVER et al. JULIÁN. 2013;310(19): 0063-2727 (http://education.eBusinessCards.com.[place] /faq/WAQ681) CHOL/HDLC RATIO 01/29/2025 2.8 <5.0 (calc) Final NON HDL CHOLESTEROL 01/29/2025 119 <130 mg/dL (calc) Final Comment: For patients with diabetes plus 1 major ASCVD risk factor, treating to a non-HDL-C goal of <100 mg/dL (LDL-C of <70 mg/dL) is considered a therapeutic option. Hemoglobin A1C 01/29/2025 6.3 (H) <5.7 % of total Hgb Final Comment: For someone without known diabetes, a [...] A1c for diagnosis of diabetes for children. TSH W/REFLEX TO FT4 01/29/2025 6.27 (H) 0.40 - 4.50 mIU/L Final T4, FREE 01/29/2025 0.9 0.8 - 1.8 ng/dL Final Assessment/Plan Problem List Items Addressed This Visit Major depressive disorder, recurrent, moderate (CMS/HCC) In remission Essential hypertension (CMS/HCC) Our specific goals, for your hypertension, is [...] taking them as prescribed. DASH diet handouts Hypothyroid (CMS/HCC) Increase dose Microalbuminuric diabetic nephropathy (CMS/HCC) Increase fluids Chronic kidney disease, stage 3a (HCC) (CMS/[facility]) - Primary Resolved, improved with GFR 69 Type 2 diabetes mellitus with diabetic chronic kidney disease (CMS/HCC) No Tobacco use Follow ADA 1800 diet [...] and importance of healthy diet and exercise. Other Visit Diagnoses Parkinsonism, unspecified (CMS/HCC) Hypothyroidism, unspecified (CMS/HCC) Relevant Medications thyroid ([place] Thyroid) 90 MG tablet Follow up in about 6 months (around 08/03/2025) for Diabetes. documented in this encounter [facility] 01-31-2025 Evaluation note Diagnosis Stage 3a chronic kidney disease (HCC) (CMS/HCC)- Primary Essential hypertension (CMS/HCC) Unspecified essential hypertension Flu vaccine need Need for pneumococcal vaccine Need for prophylactic vaccination against streptococcus pneumoniae (pneumococcus) Rash of face IGT (impaired glucose tolerance) Impaired glucose tolerance test Tardive dyskinesia- Primary Subacute dyskinesia due to drugs IGT (impaired glucose tolerance) Impaired glucose tolerance test Type 2 diabetes mellitus with diabetic chronic kidney disease (CMS/HCC) Chronic kidney disease, stage 3a (HCC) (CMS/HCC) Major depressive disorder, recurrent, moderate (CMS/HCC) Major depressive disorder, recurrent episode, moderate Chronic kidney disease, stage 3a (HCC) (CMS/HCC)- Primary Major depressive disorder, recurrent, moderate (CMS/HCC) Major depressive disorder, recurrent episode, moderate Parkinsonism, unspecified (CMS/HCC) Essential hypertension (CMS/HCC) Unspecified essential hypertension Type 2 diabetes mellitus with stage 3a chronic kidney disease, without long-term current use of insulin (HCC) (CMS/HCC) Microalbuminuric diabetic nephropathy (CMS/HCC) Acquired hypothyroidism (CMS/HCC) Unspecified hypothyroidism Hypothyroidism, unspecified (CMS/HCC) [id number] History of Present illness Narrative* Erika Huynh MD - 01/11/2025 4:00 PM EST Images from the original note were not included. [address] [facility] [id number] Patient: Bettye Muse Date of : 1955 Encounter Date: 01/11/2025 Patient Care Team: Preston Riggins MD as PCP - General History of Present Illness: The patient is a 69 y.o. female, a new patient, right handed, and has been referred to the Neurology Clinic for evaluation of abnormal movements. She is currently seeing me on the behest of her psychiatrist, Dr. Brandon Velazco. History is provided by the patient and appears to be reliable. Summary of Condition: The patient reports having a longstanding history of depression and has used multiple antidepressants including trazodone, venlafaxine, bupropion in the past. She was also on Rexulti(brexipiprazole) for about 2 years, and stopped taking it 2-3 years ago. She denies being on any other anti dopaminergic medications in the past. She does not recall how long she has had involuntary movement affectingher lower face and neck, however she does recall that she was started on Ingrezza shortly after shewas initiated on Rexulti presumably for tardive dyskinesias. She reports that the involuntary movements affecting her lower face were very frequent when this started, probably occurring once every minute. When she was started on Ingrezza, it seemed to help significantly with the frequency and severity of symptoms. She denies any adverse events related to Ingrezza intake at this time. She currently denies any restlessness, painful muscle spasms, other dystonias, incontinence, rhythmic jerking, focal motor or sensory deficits, loss of consciousness, confusion or episodes, hallucinations, agitation, behavioral disturbances.Patient has noticed gradually progressive difficulty with swallowing, both liquids and solids over the last 2 years. She reports micro aspirating however has not medical evaluation for this problem. Denies having history of aspiration pneumonia or choking episodes. The patient has noticed gradually progressive gait instability over the last 2 years, reports stumbling frequently, however has infrequent falls. Currently ambulating without any assistive devices. Movement disorder checklist(reviewed and updated 01/11/2025): Onset: 2021. Off time and fluctuations:NA Dyskinesias: Has a longstanding history of tardive dyskinesias(involuntary, nonrhythmic twitching of lower facial/cervical musculature), currently fairly well controlled on Ingrezza 80 mg Q.a.m.. Gait: gradually worsening over the last 2 years Freezing: freezing spells when she is trying to get out of the car, noticed over the last 6 months or so. Falls: infrequently, feels wobbly on her feet, falls infrequently. Denies shuffling of gait. Tremors: mild tremulousness, worse when she tries to use her hands, right worse than left.. No aggravating or alleviating factors. Speech: denies Swallowing: some problems noticed over the last 2 years, liquids>solids. ADLs: Intact regarding toileting, bathing, feeding, dressing, grooming, ambulation, medication. IADLs: Intact regarding using telephone, shopping, food preparation, housekeeping, laundry, finances, transportation. Constipation: reports chronic intermittent constipation> 30 years. Drinks prune juice which seems to help. Sleep: Denies sleep fragmentation, vivid dreams or dream enacting behavior Denies. Reports positiveH/o bruxism.. Memory: denies Depression/Anxiety: yes. Hallucinations: denies Lightheadedness/syncope: occassional LH when she stands up abruply or lifts her head up. Impulsive behavior: Denies impulsive behaviors regarding gambling, shopping, eating and sexual behaviors. Other: denies dysosmia/anosmia, + Small handwriting, micrographia Denies previous previous history of CVA, seizures, TBI, learning disability. Does have a family history of Parkinson's disease, father. Allergies: Nubain [nalbuphine] and Rexulti [brexpiprazole] Review of Relevant Patient Questionnaires: HIT 6: No data to display PHQ-9: 01/11/2025 4:09 PM PM AMB PHQ 9 Little interest or pleasure in doing things 0 Feeling down, depressed, or hopeless 0 Trouble falling or staying asleep, or sleeping too much 0 Feeling tired or having little energy 0 Poor appetite or overeating 0 Feeling bad about yourself - or that you are a failure or have let yourself or your family down 0 Trouble concentrating on things, such as reading the newspaper or watching television 0 Moving or speaking so slowly that other people could have noticed. Or the opposite - being so fidgety or restless that you have been moving around a lot more than usual 0 Thoughts that you would be better off , or of hurting yourself in some way 0 Total Score 0 If you checked off any problems, how difficult have these problems made it for you to do your work,take care of things at home, or get along with other people? Not difficult at all PHQ-15: No data to display SARA-7: No data to display PTSD: No data to display [place]: No data to display RUSS-10: No data to display Past Medical, Family, Surgical, and Social History Update: The following portions of the patient's history were reviewed and updated as appropriate: allergies, current medications, past family history, past medical history, past social history, past surgicalhistory and problem list. Past Medical History: Diagnosis Date Diabetes mellitus ([facility]) Disease of thyroid gland Hypertension History reviewed. No pertinent family history. Past Surgical History: Procedure Laterality Date APPENDECTOMY BILATERAL OOPHORECTOMY HYSTERECTOMY TONSILLECTOMY Current Outpatient Medications Medication Sig Dispense Refill ALPRAZolam (XANAX) 0.25 mg tablet Take 1 tablet (0.25 mg total) by mouth daily as needed for anxiety. 30 tablet 0 [place]OUR THYROID 90 mg tablet TAKE 1 TABLET DAILY (ON TUESDAY THROUGH TUESDAY OF EACH WEEK) and ONE-HALF tablet on TUESDAY and TUESDAY 3 atenolol (TENORMIN) 50 mg tablet atorvastatin (LIPITOR) 20 mg tablet Take 1 tablet (20 mg total) by mouth in the morning. CALCIUM CARBONATE-VITAMIN D3 ORAL Take one(1) tablet two(2) times daily. estradiol (ESTRACE) 0.5 mg tablet FARXIGA 5 mg tablet Take 1 tablet (5 mg total) by mouth in the morning. INGREZZA 80 mg capsule take one capsule by mouth once daily 90 capsule 3 lamoTRIgine (LaMICtal) 150 mg tablet TAKE 1 TABLET BY MOUTH IN THE MORNING 90 tablet 3 losartan (COZAAR) 100 mg tablet Take 1 tablet (100 mg total) by mouth in the morning. metFORMIN (GLUCOPHAGE) 500 mg tablet Take 1 tablet (500 mg total) by mouth in the morning and 1 tablet (500 mg total) in the evening. Take with meals. traZODone (DESYREL) 50 mg tablet Take 2 tablets (100 mg total) by mouth nightly. 180 tablet 3 venlafaxine XR (EFFEXOR-XR) 150 mg 24 hr capsule Take 2 capsules (300 mg total) by mouth every morning. 180 capsule 3 No current facility-administered medications for this visit. (All medications reviewed and updated by provider since last office visit or hospitalization) Tobacco History: Social History Tobacco Use Smoking Status Never Smokeless Tobacco Never (If patient a smoker, smoking cessation counseling offered) Social History: Social History Substance and Sexual Activity Alcohol Use Not Currently Review of Systems: 14 systems were reviewed and negative except those mentioned in HPI . Physical Exam: Vitals: Vitals: 01/11/25 1608 Weight: 77.1 kg (170 lb) Height: 154.9 cm (5' 1 ) Patient consulted for exercise: encouragement to exercise. Neurological Physical Exam: Awake, alert and oriented X 4, no aphasia, dysarthria, gaze deviation, neglect or apraxia appreciated. Normal executive function, abstraction, language, memory and attention. Palmomental reflex positive bilaterally Cranial nerves: II: pupils equal and reactive to light; visual [place] full; undilated funduscopy shows normal opticdiscs and retinal vessels bilaterally III, IV, : extraocular movements intact; no ptosis. No nystagmus. V: facial sensation equal to touch in all 3 divisions bilaterally. No weakness of muscles of mastication. VII: face symmetric with normal eye closure and smile. VIII: hearing normal to rubbing fingers IX, X: palate elevates symmetrically; phonation normal. XI: Shoulder elevation symmetric and 5/5. Sternocleidomastoid muscle strength symmetric. XII: tongue midline with good movements. Motor: Normal bulk. No fasciculations. Slightly increased tone/rigidity In the right upper extremity, cogwheeling?. Motor strength 5/5 in bilateral upper and bilateral lower extremities. No bradykinesia. Mild kinetic and postural tremor appreciated in bilateral upper, right slightly worse than left. No resting tremor appreciated. No other abnormal movements. Reflexes: DTRs 2/4 and symmetric bilaterally. No ankle clonus was noted. Sensory examination: Sensation to light touch, cold touch and vibration are bilaterally symmetric and normal. Coordination: Vpetss-cvdi-tiktne and hscr-syiq-xoun tests are normal. No dysdiadochokinesia on rapid alternating movements. Gait and Station: Patient walks with narrow base and normal stride. Mildly reduced stride length. Decreased associated arm movements while walking. No shuffling as appreciated. Turns sequentially. Romberg's test negative,, wobbles anteroposteriorly. Retropulsion test is negative. Data Reviewed: No results found for: CREATININE , BUN , NA , K , CL , CO2 No results found for: WBC , HGB , HCT , MCV , PLT No results found for: ALT , AST , GGT , ALKPHOS No results found for: INR , PROTIME No results found for: PTT Diagnostic Study Results: CT No results found. CTA No results found. MRI No results found. Angio No results found. Assessment and Plan: Bettye was seen today for new patient. Diagnoses and all orders for this visit: Parkinsonism, unspecified Parkinsonism type (CMS-HCC) - MR brain without contrast; Future - NM brain imaging SPECT; Future - [employer] eval and treat; Future Dysphagia, unspecified type - [employer] eval and treat; Future Gait instability - MR brain without contrast; Future - NM brain imaging SPECT; Future Tardive dyskinesia - [facility] [place], [place] Major depressive disorder, recurrent episode, moderate (CMS-HCC) Generalized anxiety disorder Dependent personality disorder (CMS-HCC) Involuntary movements - MR brain without contrast; Future - NM brain imaging SPECT; Future - [employer] eval and treat; Future Chronic idiopathic constipation The patient is a right-handed, 69/F, with past medical history of anxiety, depression,Hypertension,hyperlipidemia, who has been referred to the Neurology Clinic for evaluation of abnormal movements.The patient reports having a longstanding history of depression and anxiety, and has used multiple a ntidepressants/ anxiolytics including trazodone, venlafaxine, bupropion in the past. She was also on Rexulti(brexipiprazole) for about 2 years, and stopped taking it 2-3 years ago. She denies being on any other anti dopaminergic medications in the past. She does not recall how long she has had involuntary movement affecting her lower face and neck, however she does recall that she was started on Ingrezza shortly after she was initiated on Rexulti presumably for tardive dyskinesias. She reports that the involuntary movements affecting her lower face were very frequent when this started, probably occurring once every minute. When she was started on Ingrezza, it seemed to help significantly with the frequency and severity of symptoms. She denies any adverse events related to Ingrezza intake at this time. She currently denies any restlessness, painful muscle spasms, other dystonias, incontinence, rhythmic jerking, focal motor or sensory deficits, loss of consciousness, confusion or episodes, hallucinations, agitation, behavioral disturbances.Patient has noticed gradually progressive difficulty with swallowing, both liquids and solids over the last 2 years. She reports micro aspiratinghowever has not medical evaluation for this problem. Denies having history of aspiration pneumonia or choking episodes. The patient has noticed gradually progressive gait instability over the last 2 years, reports stumbling frequently, however has infrequent falls. Currently ambulating without any assistive devices. Movement disorder checklist(reviewed and updated 01/11/2025): Onset: 2021. Off time and fluctuations:NA Dyskinesias: Has a longstanding history of tardive dyskinesias(involuntary, nonrhythmic twitching of lower facial/cervical musculature), currently fairly well controlled on Ingrezza 80 mg Q.a.m.. Gait: gradually worsening over the last 2 years Freezing: freezing spells when she is trying to get out of the car, noticed over the last 6 months or so. Falls: infrequently, feels wobbly on her feet, falls infrequently. Denies shuffling of gait. Tremors: mild tremulousness, worse when she tries to use her hands, right worse than left.. No aggravating or alleviating factors. Speech: denies Swallowing: some problems noticed over the last 2 years, liquids>solids. ADLs: Intact regarding toileting, bathing, feeding, dressing, grooming, ambulation, medication. IADLs: Intact regarding using telephone, shopping, food preparation, housekeeping, laundry, finances, transportation. Constipation: reports chronic intermittent constipation> 30 years. Drinks prune juice which seems to help. Sleep: Denies sleep fragmentation, vivid dreams or dream enacting behavior Denies. Reports positiveH/o bruxism.. Memory: denies Depression/Anxiety: yes. Hallucinations: denies Lightheadedness/syncope: occassional LH when she stands up abruply or lifts her head up. Impulsive behavior: Denies impulsive behaviors regarding gambling, shopping, eating and sexual behaviors. Other: denies dysosmia/anosmia, + Small handwriting, micrographia Denies previous previous history of CVA, seizures, TBI, learning disability. Does have a family history of Parkinson's disease, father. Current neurological examination shows evidence of mild postural and kinetic tremor affecting bilateral upper extremities, right worse than left, mild rigidity appreciated in right upper extremity( cogwheeling?), intermittent nonrhythmic twitching of the lower facial muscles( consistent with TD's). Clinical impression: The patient is a 69 years old female with a longstanding history of anxiety, depression who had seemingly developed tardive dyskinesias while being on Rexulti/brexipiprazole. Rexulti was subsequently discontinued. She was subsequently started on Ingrezza /valbenazine by her psychiatrist which seems to have helped significantly reducing the frequency and severity of symptoms. However over the last year or so, the patient has noticed worsening tremulousness affecting the headand neck, and along with additional concerns for gradually progressive swallowing difficulty and gait instability. This has raised the concern for worsening TD's vs development of Parkinson disease se condary to valbenazine usage(VMAT2 inhibitor) vs superimposed idiopathic Parkinson disease. Given that the patient is currently not on any anti dopaminergic medicine, the possibility of worsening extrapyramidal symptoms is unlikely. Given mild rigidity and tremors affecting the right upper extremity, more than the left, concern is that the patient might have underlying idiopathic Parkinson disease. Based off current clinical situation, would be difficult to differentiate between primary versus secondary parkinsonism clinically. After discussing pros and cons will get MRI brain without contrast to rule out structural neurological disease as a cause for the patient's presentation. We will also get DaTSCAN for further differentiation between primary and secondary parkinsonism. Will also refer patient to speech therapist for evaluation of dysphagia/intermittent speech impairment. Regular follow-up with PCP. Supportive care. Return to clinic in 2-3 months. Problem List Digestive Dysphagia Relevant Orders [employer] DES[employer] eval and treat Chronic idiopathic constipation Nervous and Auditory Tardive dyskinesia (Chronic) Parkinsonism (CMS-HCC) - Primary Relevant Orders MR brain without contrast NM brain imaging SPECT [employer] DES[employer] eval and treat Other Major depressive disorder, recurrent episode, moderate (CMS-HCC) Generalized anxiety disorder Dependent personality disorder (CMS-HCC) Involuntary movements Relevant Orders MR brain without contrast NM brain imaging SPECT [employer] DES[employer] eval and treat Gait instability Relevant Orders MR brain without contrast NM brain imaging SPECT Follow-up: 2-3 months Erika Huynh MD Vascular Neurologist [facility] Neurology ([facility]) Total time spent was 60 minutes: Preparing to see the patient (e.g., review of tests) Obtaining and/or reviewing separately obtained history Performing a medically appropriate examination and/or evaluation Counseling and educating the patient/family/caregiver Documenting clinical information in the electronic or other health record Independently interpreting results (not separately reported) and communicating results to the patient/family/caregiver Care coordination (not separately reported) Important Notice: This note was created with the assistance of a speech recognition program. While intending to generate a timely document that accurately reflects the content of the encounter, no guarantee can be provided that every grammatical or spelling mistake has been or will be identified or corrected. Thank you for your understanding. [facility] Miscellaneous Notes* Telephone Encounter - Marietta Sharma - 10/26/2024 11:[address] Huynh Reschedule: Patient's appointment with Dr. Huynh on December 14, 2024 needs to be rescheduled at this time due to provider out of clinic. 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 Patient is rescheduled to see Dr Huynh at our [place] location on 01/11/25 at 4:00p documented in this [facility] Telephone encounter Note* Telephone Encounter - Marietta Sharma - 10/26/2024 11:[address] Huynh Reschedule: Patient's appointment with Dr. Huynh on December 14, 2024 needs to be rescheduled at this time due to provider out of clinic. 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 Patient is rescheduled to see Dr Huynh at our [place] location on 01/11/25 at 4:00p [facility]12[facility] History and physical note* Jaskaran Tate PA-C - 10/11/2024 2:15 PM EST History Of Present Illness Bettye Muse is a 69 y.o. female presenting with left knee pain and mechanical symptoms. Past Medical History She has no past medical history on file. Surgical History She has no past surgical history on file. Social History She has no history on file for tobacco use, alcohol use, and drug use. Family History No family history on file. Allergies Aripiprazole, Brexpiprazole, and Nalbuphine Review of Systems CONSTITUTIONAL: Denies weight loss, fever and chills. - HEENT: Denies changes in vision and hearing. - RESPIRATORY: Denies SOB and cough. - CV: Denies palpitations and CP. - GI: Denies abdominal pain, nausea, vomiting and diarrhea. - : Denies dysuria and urinary frequency. - MSK: See physical exam findings - SKIN: Denies rash and pruritus. - NEUROLOGICAL: Denies headache and syncope. - PSYCHIATRIC: Denies recent changes in mood. Denies anxiety and depression. Physical Exam- GENERAL: Alert and oriented x 3. No acute distress. Well-nourished. - EYES: EOMI. Anicteric. - HENT: Moist mucous membranes. No scleral icterus. No cervical lymphadenopathy. - LUNGS: Clear to auscultation bilaterally. No accessory muscle use. - CARDIOVASCULAR: Regular rate and rhythm. No murmur. No JVD. - ABDOMEN: Soft, non-tender and non-distended. No palpable masses. - EXTREMITIES: Positive Ar's test - NEUROLOGIC: No focal neurological deficits. CN II-XII grossly intact, but not individually tested. - PSYCHIATRIC: Cooperative. Appropriate mood and affect. Last Recorded Vitals There were no vitals taken for this visit. Relevant Results Scheduled medications Continuous medications PRN medications No results found for this or any previous visit (from the past 24 hours). Assessment/Plan Diagnoses and all orders for this visit: Left knee pain, unspecified chronicity Discussed left knee arthroscopic partial medial meniscectomy, patient agreeable and would like to proceed. I spent 10 minutes in the professional and overall care of this patient. Jaskaran Tate PA-C [facility] Work Phone: 1(655) 813-511112-05-2024 History and physical note* Jaskaran Tate PA-C - 10/11/2024 2:15 PM EST History Of Present Illness Bettye Muse is a 69 y.o. female presenting with left knee pain and mechanical symptoms. Past Medical History She has no past medical history on file. Surgical History She has no past surgical history on file. Social History She has no history on file for tobacco use, alcohol use, and drug use. Family History No family history on file. Allergies Aripiprazole, Brexpiprazole, and Nalbuphine Review of Systems CONSTITUTIONAL: Denies weight loss, fever and chills. - HEENT: Denies changes in vision and hearing. - RESPIRATORY: Denies SOB and cough. - CV: Denies palpitations and CP. - GI: Denies abdominal pain, nausea, vomiting and diarrhea. - : Denies dysuria and urinary frequency. - MSK: See physical exam findings - SKIN: Denies rash and pruritus. - NEUROLOGICAL: Denies headache and syncope. - PSYCHIATRIC: Denies recent changes in mood. Denies anxiety and depression. Physical Exam- GENERAL: Alert and oriented x 3. No acute distress. Well-nourished. - EYES: EOMI. Anicteric. - HENT: Moist mucous membranes. No scleral icterus. No cervical lymphadenopathy. - LUNGS: Clear to auscultation bilaterally. No accessory muscle use. - CARDIOVASCULAR: Regular rate and rhythm. No murmur. No JVD. - ABDOMEN: Soft, non-tender and non-distended. No palpable masses. - EXTREMITIES: Positive Ar's test - NEUROLOGIC: No focal neurological deficits. CN II-XII grossly intact, but not individually tested. - PSYCHIATRIC: Cooperative. Appropriate mood and affect. Last Recorded Vitals There were no vitals taken for this visit. Relevant Results Scheduled medications Continuous medications PRN medications No results found for this or any previous visit (from the past 24 hours). Assessment/Plan Diagnoses and all orders for this visit: Left knee pain, unspecified chronicity Discussed left knee arthroscopic partial medial meniscectomy, patient agreeable and would like to proceed. I spent 10 minutes in the professional and overall care of this patient. Jaskaran Tate PA-C documented in this [facility] Work Phone: [phone]) 856-205112-05-2024 History of Present illness Narrative* Giucho Nguyen MD - 10/11/2024 2:15 PM EST Images from the original note were not included. History of Present Illness: Patient returns today to review MRI. The patient endorses persistent knee pain and persistent mechanical symptoms including locking, catching, and giving out. These issues are refractory to multiple non-surgical treatments. 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 Review of Systems GENERAL: Negative for malaise, significant weight loss, fever MUSCULOSKELETAL: See HPI NEURO: Negative for numbness / tingling Physical Examination: Left Knee: Skin healthy and intact No gross varus or valgus alignment Range of motion: no major deficits Tenderness to palpation over joint line: medial joint line No laxity to valgus stress No laxity to varus stress Negative Lacie s test Negative anterior drawer test Negative posterior drawer test Positive Ar s test Neurovascular exam normal distally Imaging MRI: Reveals horizontal posterior horn and body medial meniscus tear Assessment: Patient with a left knee medial meniscal tear. Plan: We discussed arthroscopy versus nonsurgical treatment for the patient s meniscal tear. We reviewed the blood supply to the meniscus, limited healing potential and meniscectomy versus meniscal repair.The risks of the procedure were mentioned, including wound issues, deep venous thrombosis, pulmonary embolism and medical complications. The anticipated timeframe for recovery and return to activity were outlined. We discussed formal physical therapy versus home exercise program. We mentioned the possibility of incomplete relief of pain, particularly if any chondral defects areencountered and the possibility of arthrosis of the knee related to long-term deficiencies of the meniscus. Patient agreeable to arthroscopy partial meniscectomy. Jaskaran Tate PA-C In a face to face encounter, I evaluated the patient and performed a physical examination, discussed pertinent diagnostic studies if indicated and discussed diagnosis and management strategies with both the patient and physician assistant grocery / nurse practitioner. I reviewed the PA/CARDIAC/VASCULAR SONOGRAPHER's note and agree with the documented findings and plan of care. Guicho Nguyen MD [facility] Work Phone: 1(563) 395-288111-12-2024 History of Present illness Narrative* Anali Sarmiento MD - 09/18/2024 2:50 PM EST Images from the original note were not included. Rash Location: face Duration: years Severity: moderate Quality: itchy, denies burning Modifying Factors: improved with scratching Associated symptoms: red and flaky Treatments tried: Cetaphil Current treatments: Cetaphil cream, washes face with dove bar soap New patient All pertinent medical history, medications, and allergies were reviewed. General Exam: alert, oriented to person, place, and time, normal affect, well appearing Accompanied by spouse A focused exam completed based on patient reported problems, see below: 1. Other seborrheic dermatitis Head - Anterior (Face) Erythema and scale. Flaring today Discussed that seborrheic dermatitis is a chronic condition that can be controlled but not cured. Start ciclopirox cream on the face once daily. Advised patient to continue using gentle cleansers andmoisturizers. Notify office if flaring despite treatment. Return in 4-6 weeks. ciclopirox (Loprox) 0.77 % cream - Head - Anterior (Face) Apply thin layer to affected area once a day, 30 day supply Next Visit: 4-6 weeks documented in this encounterCox [id number] History of Present illness Narrative* Guicho Nguyen MD - 08/16/2024 3:30 PM EDT Images from the original note were not included. History of Present Illness: The patient presents today endorsing left knee pain. The pain localizes over the medial joint line.The patient denies any recent trauma and notes the insidious onset of pain. The pain is achy, constant, worse with activity and better with rest. The patient notes occasional locking, catching and giving out. The patient has tried the following modalities: Rest, ice, anti-inflammatories sparingly. 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 History reviewed. No pertinent past medical history. History reviewed. No pertinent surgical history. No current outpatient medications on file. Review of Systems GENERAL: Negative for malaise, significant weight loss, fever MUSCULOSKELETAL: See HPI NEURO: Negative for numbness / tingling Physical Examination: Left Knee: Skin healthy and intact No gross swelling or ecchymosis No significant varus or valgus malalignment Effusion: absent ROM: Full flexion Full extension No pain with internal rotation of the hip Tenderness to palpation: medial joint line No laxity to valgus stress No laxity to varus stress Negative Lacie s test Negative anterior drawer test Negative posterior drawer test Positive Ar s test Neurovascular exam normal distally Imaging: Reveal no acute osseous abnormality, minimal evidence of medial sided DJD. Assessment: Patient with left knee pain concern for meniscal tear medially Plan: We discussed with the patient concern for a meniscal tear. We reviewed the natural history of meniscal pathology and discussed the implications for the health of the joint. Various treatment options were discussed and the patient elected for MRI and Mobic, will follow up with MRI. Jaskaran Tate PA-C In a face to face encounter, I evaluated the patient and performed a physical examination, discussed pertinent diagnostic studies if indicated and discussed diagnosis and management strategies with both the patient and physician assistant grocery / nurse practitioner. I reviewed the PA/CARDIAC/VASCULAR SONOGRAPHER's note and agree with the documented findings and plan of care. Guicho Nguyen MD documented in this [facility] Work Phone: [phone]) 731-552908-21-2024 History of Present illness Narrative* CHANA Gannon - 06/27/2024 3:00 PM EDT Images from the original note were not included. Subjective : Chief Complaint: Bettye Muse is an 69 y.o. female here for an annual wellness visit. Has been helping to take care of her who has had a lot of health issues lately. I have reviewed and reconciled the history and medication list with the patient today. Current Outpatient Medications on File Prior to Visit Medication Sig Dispense Refill [place] Thyroid 90 MG tablet TAKE 1 TABLET BY MOUTH DAILY except TAKE 1/2 (ONE- HALF) OF A TABLET BY MOUTH on TUESDAY and TUESDAY (Patient taking differently: 1 tab daily except nothing on Tuesday and1/2 tablet Tuesday.) 100 tablet 3 atenolol (Tenormin) 50 MG tablet TAKE 1 TABLET BY MOUTH IN THE MORNING 100 tablet 3 atorvastatin (Lipitor) 20 MG tablet TAKE 1 TABLET BY MOUTH DAILY 100 tablet 3 Biotin 1000 MCG chewable tablet Chew Daily. cholecalciferol (Vitamin D-3) 125 MCG (5000 UT) capsule Take 5,000 Units by mouth Daily Farxiga 5 MG TAKE 1 TABLET DAILY 90 tablet 0 Ingrezza 80 MG capsule Take 80 mg by mouth in the morning. lamoTRIgine (LaMICtal) 150 MG tablet Take 150 mg by mouth in the morning. losartan (Cozaar) 100 MG tablet TAKE 1 TABLET BY MOUTH DAILY 100 tablet 3 metFORMIN (Glucophage) 500 MG tablet Take 1 tablet (500 mg) by mouth in the morning. Take with meals. 90 tablet 3 Multiple Vitamins-Minerals (HAIR SKIN & NAILS PO) Take 1 tablet by mouth Daily traZODone (Desyrel) 50 MG tablet Take 50 mg by mouth at bedtime. venlafaxine XR (Effexor XR) 150 MG 24 hr capsule Take 2 capsules by mouth in the morning and 2 capsules before bedtime. [DISCONTINUED] Brexpiprazole (Rexulti) 1 MG tablet Take 2 tablets every day by oral route. [DISCONTINUED] buPROPion XL (Wellbutrin XL) 150 MG 24 hr tablet Take 1 tablet by mouth Daily [DISCONTINUED] estradiol (Estrace) 0.5 MG tablet Take 0.5 tablets every day by oral route. [DISCONTINUED] Multiple Vitamin (multivitamin) tablet Take 1 tablet by mouth in the morning. No current facility-administered medications on file prior to visit. Allergies Allergen Reactions Aripiprazole Nalbuphine Shellfish-Derived Products Shrimp Extract Other Reaction(s): Not available Social History Tobacco Use Smoking status: Never Smokeless tobacco: Never Vaping Use Vaping status: Never Used Substance Use Topics Alcohol use: Never Comment: Caffeine intake: more than 4 cups per day coffee, soda Drug use: Never Family History Problem Relation Name Age of Onset Cancer Mother Isabel Reyes Diabetes Mother Isabel Reyes Diabetes Maternal Grandmother Laddaniela Gilbert Bipolar disorder Granddaughter Past Medical History: Diagnosis Date Anxiety Asthma (CMS/HCC) CKD (chronic kidney disease), stage III (HCC) (CMS/HCC) Depression (CMS/HCC) Dizziness About a year Ear problems 2018 Fibromyalgia H/O bladder repair surgery H/O echocardiogram 11/23/2018 Echo EF55-60% LV normal size,, no RMWA, grade 1 DD, breast implants H/O exercise stress test 05/18/2018 normal Head trauma History of psychiatric care hospitalized once for mental health in [place], one in [place] and once in [facility] (hearing loss) Many years Hypercholesterolemia (CMS/HCC) Hypertension (CMS/HCC) Hypothyroid (CMS/HCC) Migraine headache (CMS/HCC) Palpitations 1983, 1979, 1974 PTSD (post-traumatic stress disorder) (CMS/HCC) Thyroid disease (CMS/HCC) Tinnitus for years Visit for review of DEXA scan 07/24/2021 normal Past Surgical History: Procedure Laterality Date ADENOIDECTOMY 1977 APPENDECTOMY 1966 BLADDER REPAIR BLADDER SURGERY x4 COSMETIC SURGERY 1994 DILATION AND CURETTAGE 1994 HYSTERECTOMY 1988 LASIK 1998 MI ENLARGE BREAST 1998 TONSILLECTOMY 1979 Review of Systems Constitutional: Negative for chills, fatigue and fever. HENT: Negative for congestion, ear pain, rhinorrhea and sore throat. Eyes: Negative for pain, discharge and visual disturbance. Respiratory: Negative for cough, shortness of breath and wheezing. Cardiovascular: Negative for chest pain, palpitations and leg swelling. Gastrointestinal: Negative for abdominal pain, constipation, diarrhea, nausea and vomiting. Genitourinary: Negative for difficulty urinating, dysuria and frequency. Musculoskeletal: Negative for arthralgias and back pain. Skin: Negative for rash. Neurological: Negative for dizziness and numbness. Psychiatric/Behavioral: Negative for sleep disturbance. The patient is not nervous/anxious. List of current healthcare providers: Patient Care Team: Preston Riggins MD as PCP - General (Family Medicine) Preston Riggins MD as PCP - Devoted Medicare Annual Visit Over the past 2 weeks, how often have you been bothered by any of the following problems? Little interest or pleasure in doing things: Not at all (she is currently on medication) Feeling down, depressed, or hopeless: Not at all Patient Health Questionnaire-2 Score: 0 Over the past 2 weeks, how often have you been bothered by any of the following problems? Trouble falling or staying asleep, or sleeping too much: Not at all Feeling tired or having little energy: Not at all Poor appetite or overeating: Not at all Feeling bad about yourself - or that you are a failure or have let yourself or your family down: Not at all Trouble concentrating on things, such as reading the newspaper or watching television: Not at all Moving or speaking so slowly that other people could have noticed? Or the opposite - being so fidgety or restless that you have been moving around a lot more than usual.: Not at all Thoughts that you would be better off or hurting yourself in some way: Not at all Patient Health Questionnaire-9 Score: 0 Bose Fall Risk History of Falling, Immediate or Within 3 Months: Yes Health Risk Assessment Form Do you need help eating, bathing, using the toilet, dressing, or getting around your home?: No Can you prepare your own meals?: Yes Can you do your own housework without help?: Yes Can you shop for groceries or clothes without help?: Yes Do you exercise for about 20 minutes 3 or more days a week?: No How confident are you that you can control and manage most of your health problems?: Very confident Can you mange your money, credit cards and accounts, pay bills and taxes?: Yes Vision Screening: Yes, no gross abnormalities Hearing Screening: Yes, no gross abnormalities Cognitive Screening Self Assessment: No overt cognitive deficiency is apparent by direct observation Three Word Registration: Leader, Season, Table Clock Drawing: Normal Clock - 2 Three Word Recall: 1/3 words correct - 1 Total Score (0-5 Points): 3 Pain Assessment Pain Score: 0 - No pain Advance Care Planning Do you have a living will?: Yes Do you have a medical power of community planner?: No Objective : BP 136/82 Pulse 59 Resp 16 Ht 5' 1 Wt 167 lb 9.6 oz SpO2 96% BMI 31.67 kg/m No results found. Physical Exam Constitutional: General: She is not in acute distress. Appearance: She is well-developed. She is obese. HENT: Head: Normocephalic and atraumatic. Right Ear: Tympanic membrane and ear canal normal. Left Ear: Tympanic membrane and ear canal normal. Nose: Nose normal. Mouth/Throat: Mouth: Mucous membranes are moist. Pharynx: No posterior oropharyngeal erythema. Eyes: General: No scleral icterus. Extraocular Movements: Extraocular movements intact. Conjunctiva/sclera: Conjunctivae normal. Pupils: Pupils are equal, round, and reactive to light. Neck: Vascular: No carotid bruit. Cardiovascular: Rate and Rhythm: Normal rate and regular rhythm. Heart sounds: Normal heart sounds. No murmur heard. Pulmonary: Effort: Pulmonary effort is normal. No respiratory distress. Breath sounds: Normal breath sounds. No wheezing, rhonchi or rales. Abdominal: General: Bowel sounds are normal. There is no distension. Palpations: Abdomen is soft. Tenderness: There is no abdominal tenderness. There is no guarding. Musculoskeletal: General: No swelling or deformity. Normal range of motion. Cervical back: Normal range of motion and neck supple. No tenderness. Skin: General: Skin is warm and dry. Capillary Refill: Capillary refill takes less than 2 seconds. Findings: No rash. Neurological: General: No focal deficit present. Mental Status: She is alert and oriented to person, place, and time. Cranial Nerves: No cranial nerve deficit. Sensory: No sensory deficit. Motor: No weakness. Gait: Gait normal. Deep Tendon Reflexes: Reflexes normal. Psychiatric: Mood and Affect: Mood normal. Behavior: Behavior normal. Thought Content: Thought content normal. Judgment: Judgment normal. Assessment/Plan : The following health maintenance schedule was reviewed with the patient and provided in printed form in the after visit summary: Health Maintenance Topic Date Due Mammogram 07/24/2022 Diabetes: Retinopathy Screening 04/13/2024 Influenza Vaccine (1) 07/08/2024 Diabetes: Hemoglobin A1C 08/08/2024 Diabetes: Urine Protein Screening 11/03/2024 Medicare Annual Wellness (AWV) 06/27/2025 Colorectal Cancer Screening 06/09/2026 Pneumococcal Vaccine: 65+ Years Completed Advance Care Planning Has a living will in place. Orders Placed This Encounter Procedures Bilateral screening mammogram with tomosynthesis Standing Status: Future Standing Expiration Date: 08/27/2025 Scheduling Instructions: PLEASE CALL PATIENT TO SCHEDULE Order Specific Question: Reason for exam: Answer: screening DEXA bone density Standing Status: Future Standing Expiration Date: 06/27/2025 Scheduling Instructions: PLEASE CALL PATIENT TO SCHEDULE Order Specific Question: Reason for exam: Answer: SCREENING 1. Medicare annual wellness visit, subsequent Reviewed all relevant preventative screenings with the patient in detail. Medicare Wellness form completed and will be scanned into patient's chart. All needed testing was ordered. Will continue withyearly Medicare Wellness exams. 2. ACP (advance care planning) Patient willing to discuss ACP. Pt has Living Will in place. 3. Encounter for screening mammogram for malignant neoplasm of breast Provided patient with an order for an updated Mammogram. If results are negative/normal, will plan to continue with routine yearly screenings. - Bilateral screening mammogram with tomosynthesis; Future 4. Estrogen deficiency Provided patient with an order for an updated DEXA If results are negative/normal, will plan to continue with routine screenings every two years. - DEXA bone density; Future 5. Tardive dyskinesia This is a chronic medical condition that is stable since last assessment. No changes in treatment are suggested at this time. 6. Dyspnea on exertion This is a chronic medical condition that is stable since last assessment. No changes in treatment are suggested at this time. 7. Essential hypertension ([facility]) Patient's blood pressure is currently well controlled. Continue with current medications and I willcontinue to monitor. 8. Palpitations This is a chronic medical condition that is stable since last assessment. No changes in treatment are suggested at this time. 9. Chronic kidney disease, stage 3a (HCC) ([facility]) This is a chronic medical condition that is stable since last assessment. No changes in treatment are suggested at this time. Will continue to monitor with routine labs. 10. Microalbuminuria This is a chronic medical condition that is stable since last assessment. No changes in treatment are suggested at this time. Will continue to monitor with routine labs. 11. Postmenopausal atrophic vaginitis This is a chronic medical condition that is stable since last assessment. No changes in treatment are suggested at this time. 12. Fibromyalgia This is a chronic medical condition that is stable since last assessment. No changes in treatment are suggested at this time. 13. Acquired hypothyroidism ([facility]) This is a chronic medical condition that is stable since last assessment. No changes in treatment are suggested at this time. Will continue to monitor with routine labs. 14. IGT (impaired glucose tolerance) This is a chronic medical condition that is stable since last assessment. No changes in treatment are suggested at this time. Will continue to monitor with routine labs. 15. Microalbuminuric diabetic nephropathy ([facility]) This is a chronic medical condition that is stable since last assessment. No changes in treatment are suggested at this time. Will continue to monitor with routine labs. 16. Type 2 diabetes mellitus with stage 3a chronic kidney disease, without long- term current use ofinsulin (HCC) ([facility]) This is a chronic medical condition that is stable since last assessment. No changes in treatment are suggested at this time. Will continue to monitor with routine labs. 17. Bilateral tinnitus This is a chronic medical condition that is stable since last assessment. No changes in treatment are suggested at this time. 18. Decreased estrogen level This is a chronic medical condition that is stable since last assessment. No changes in treatment are suggested at this time. 19. Dizziness This is a chronic medical condition that is stable since last assessment. No changes in treatment are suggested at this time. 20. Generalized anxiety disorder ([facility]) The patient is seeing a hospitalist medical director for this condition, treatment is deferred to that specialist. Correspondence from that specialist and any available testing were reviewed during today's visit. 21. H/O herpes zoster This is a chronic medical condition that is stable since last assessment. No changes in treatment are suggested at this time. 22. H/O total hysterectomy S/p hysterectomy. Denies complaints at this time. 23. Hypercholesteremia ([facility]) This is a chronic medical condition that is stable since last assessment. No changes in treatment are suggested at this time. Will continue to monitor with routine labs. 24. Major depressive disorder, recurrent, moderate (HCC) ([facility]) The patient is seeing a hospitalist medical director for this condition, treatment is deferred to that specialist. Correspondence from that specialist and any available testing were reviewed during today's visit. 25. Noncompliance with treatment This is a chronic medical condition that is stable since last assessment. No changes in treatment are suggested at this time. 26. Posttraumatic stress disorder ([facility]) The patient is seeing a hospitalist medical director for this condition, treatment is deferred to that specialist. Correspondence from that specialist and any available testing were reviewed during today's visit. 27. Rash of face This is a chronic medical condition that is stable since last assessment. No changes in treatment are suggested at this time. 28. Sensorineural hearing loss, bilateral This is a chronic medical condition that is stable since last assessment. No changes in treatment are suggested at this time. 29. Class 1 obesity due to excess calories with serious comorbidity and body mass index (BMI) of 31.0 to 31.9 in adult Encouraged portion control, decrease simple sugars and carbohydrates, gradually increase activity level. Aim for gradual steady weight loss. Follow up in about 6 months (around 12/28/2024) for Hypertension & Fasting Labs. Electronically signed by Mattie Delgado PA-C on June 27, 2024 documented in this encounterCox [id number] Miscellaneous Notes* Telephone Encounter - Danuta Munroe - 03/14/2024 2:57 PM EDT First Attempt Made from [employer]- patient states that she is driving and will call the off back to schedule appt New patient referral received. Dx:Tardive dyskinesia [G24.01] / Referred by:Brandon Velazco MD Referred to: Providers patient can see in clinic: Please contact patient to schedule from referral, Thanks! PLEASE REVIEW PLAN OVER THE PHONE AND ADVISE PATIENT TO BRING UPDATED INSURANCE INFORMATION TO THEIR NEW PATIENT APPOINTMENT * Telephone Encounter - Jessica Glass - 03/14/2024 2:57 PM EDT Please ask the following questions to the new patient that you are schedulin. IS THIS DUE TO AN ACCIDENT? - no 2. IS THIS WORKER'S COMP? PLEASE VERIFY IF THIS IS WORKERS COMP AND DOCUMENT (We do not accept any new workers comp cases) - NO 3. WHAT INSURANCE? - DEVOTED HEALTH PLAN 4. HAVE YOU EVER BEEN SEEN BY A NEUROLOGIST BEFORE? IF YES, WHO AND WHEN? IS THIS A SECOND OPINION? - NO 5. ANY CHANCE OF NOW OR BEFORE YOUR APPOINTMENT? NO - 6. OFFERED YAS FOR SOONER APPOINTMENT? - YES 7. PATIENT IS SCHEDULED ON/WITH: DR. HUYNH 08/10/2024 - [facility] [id number] Telephone encounter Note* Telephone Encounter - Danuta Munroe - 03/14/2024 2:57 PM EDT First Attempt Made from [employer]- patient states that she is driving and will call the off back to schedule appt New patient referral received. Dx:Tardive dyskinesia [G24.01] / Referred by:Brandon Velazco MD Referred to: Providers patient can see in clinic: Please contact patient to schedule from referral, Thanks! PLEASE REVIEW PLAN OVER THE PHONE AND ADVISE PATIENT TO BRING UPDATED INSURANCE INFORMATION TO THEIR NEW PATIENT APPOINTMENT [employer]05-08-2024 Telephone encounter Note* Telephone Encounter - Jessica Glass - 03/14/2024 2:57 PM EDT Please ask the following questions to the new patient that you are schedulin. IS THIS DUE TO AN ACCIDENT? - no 2. IS THIS WORKER'S COMP? PLEASE VERIFY IF THIS IS WORKERS COMP AND DOCUMENT (We do not accept any new workers comp cases) - NO 3. WHAT INSURANCE? - DEVOTED HEALTH PLAN 4. HAVE YOU EVER BEEN SEEN BY A NEUROLOGIST BEFORE? IF YES, WHO AND WHEN? IS THIS A SECOND OPINION? - NO 5. ANY CHANCE OF NOW OR BEFORE YOUR APPOINTMENT? NO - 6. OFFERED YAS FOR SOONER APPOINTMENT? - YES 7. PATIENT IS SCHEDULED ON/WITH: DR. HUYNH 08/10/2024 - [facility] Diagnosis Left knee pain, unspecified chronicity- Primary documented in this encounter [facility] Work Phone: Evaluation note* Diagnosis Left knee pain, unspecified chronicity documented in this encounter [facility] Work Phone: Evaluation note* Diagnosis Stage 3a chronic kidney disease (HCC) ([facility])- Primary Essential hypertension ([facility]/HCC) Unspecified essential hypertension Flu vaccine need Need for pneumococcal vaccine Need for prophylactic vaccination against streptococcus pneumoniae (pneumococcus) Rash of face IGT (impaired glucose tolerance) Impaired glucose tolerance test Tardive dyskinesia- Primary Subacute dyskinesia due to drugs IGT (impaired glucose tolerance) Impaired glucose tolerance test Type 2 diabetes mellitus with diabetic chronic kidney disease ([facility]) Chronic kidney disease, stage 3a (HCC) ([facility]) Major depressive disorder, recurrent, moderate ([facility]/HCC) Major depressive disorder, recurrent episode, moderate Other seborrheic dermatitis- Primary [facility] in [facility] encounter [facility]* Diagnosis Left knee pain, unspecified chronicity- Primary documented in this encounter [facility] Work Phone: Evaluation note* Diagnosis Medicare annual wellness visit, subsequent- Primary ACP (advance care planning) Other specified counseling Encounter for screening mammogram for malignant neoplasm of breast Estrogen deficiency Other ovarian failure Tardive dyskinesia Subacute dyskinesia due to drugs Dyspnea on exertion Other dyspnea and respiratory abnormality Essential hypertension (CMS/HCC) Unspecified essential hypertension Palpitations Chronic kidney disease, stage 3a (HCC) ([facility]) Microalbuminuria Proteinuria Postmenopausal atrophic vaginitis Fibromyalgia Unspecified myalgia and myositis Acquired hypothyroidism ([facility]) Unspecified hypothyroidism IGT (impaired glucose tolerance) Impaired glucose tolerance test Microalbuminuric diabetic nephropathy ([facility]) Type 2 diabetes mellitus with stage 3a chronic kidney disease, without long-term current use of insulin ([facility]) ([facility]) Bilateral tinnitus Decreased estrogen level Dizziness Dizziness and giddiness Generalized anxiety disorder ([facility]/HCC) Generalized anxiety disorder H/O herpes zoster H/O total hysterectomy Hypercholesteremia (CMS/HCC) Pure hypercholesterolemia Major depressive disorder, recurrent, moderate (HCC) ([facility]) Major depressive disorder, recurrent episode, moderate Noncompliance with treatment Personal history of noncompliance with medical treatment, presenting hazards to health Posttraumatic stress disorder ([facility]) Posttraumatic stress disorder Rash of face Sensorineural hearing loss, bilateral Class 1 obesity due to excess calories with serious comorbidity and body mass index (BMI) of 31.0 to 31.9 in adult documented in this encounter [facility]* Diagnosis Parkinsonism, unspecified Parkinsonism type ([facility])- Primary Dysphagia, unspecified type Gait instability Abnormality of gait Tardive dyskinesia Subacute dyskinesia due to drugs Major depressive disorder, recurrent episode, moderate ([facility]) Major depressive disorder, recurrent episode, moderate Generalized anxiety disorder 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 Involuntary movements Chronic idiopathic constipation Unspecified constipation [facility] filedocumented in this encounter [facility]Not on filedocumented in this encounter [facility]Not on filedocumented in this encounter [facility] Summary Purpose Family History No Family History Records FoundNo Family History Records FoundNo Family History Records FoundNo Family History Records FoundNo Family History Records FoundNo Family History Records FoundNo Family History Records FoundNo Family History Records FoundNo Family History Records FoundNo Family History Records FoundNo Family History Records FoundNo Family History Records Found Advance Directives No Advanced Directives Records FoundNo Advanced Directives Records FoundNo Advanced Directives Records FoundNo Advanced Directives Records FoundNo Advanced Directives Records FoundNo Advanced Directives Records FoundNo Advanced Directives Records FoundNo Advanced Directives Records FoundNo Advanced Directives Records FoundNo Advanced Directives Records FoundNo Advanced Directives Records FoundNo Advanced Directives Records Found Reason for Referral Specialty Diagnoses / Procedures Referred By Contac t Referred To Contact Radiology Diagnoses Left knee pain, unspecified chronicity Procedures MR knee left wo IV contrast Guicho Nguyen MD [address] [facility], [address] [place], [place] [id number] Referral ID Status Reason Start Date Expiration Date Visits Requested Visits Authorized [id number] Pending Review Perform Procedure 4 08/16/2025 1 1 Specialty Diagnoses / Procedures Referred By Contac t Referred To Contact Radiology Diagnoses Left knee pain, unspecified chronicity Procedures XR knee left 4+ views Guicho Nguyen MD [address] [facility], [address] [place] [id number] Referral ID Status Reason Start Date Expiration Date Visits Requested Visits Authorized [id number] Authorized Perform Procedure 4 08/16/2025 1 1 Additional Source Comments INFORMATION SOURCE (unrecogn ized section and content) DATE CREATED AUTHOR 12/01/[address] [facility] DATE CREATED AUTHOR AUTHOR'S ORGANIZ ATION 08/14/2021 [facility] DATE CREATED AUTHOR AUTHOR'S ORGANIZ ATION 03/19/2022 [facility] dical Specialist DATE CREATED AUTHOR AUTHOR'S ORGANIZ ATION 08/19/2024 [facility] DATE CREATED AUTHOR AUTHOR'S ORGANIZ ATION 08/19/2024 [facility] DATE CREATED AUTHOR AUTHOR'S ORGANIZ ATION 11/08/2024 [facility] DATE CREATED AUTHOR AUTHOR'S ORGANIZ ATION 11/22/2024 [facility] DATE CREATED AUTHOR AUTHOR'S ORGANIZ ATION 01/14/2025 [facility] DATE CREATED AUTHOR AUTHOR'S ORGANIZ ATION 02/02/2025 [facility] dical Specialists EPIC DATE CREATED AUTHOR AUTHOR'S ORGANIZ ATION 02/03/2025 [facility] DATE CREATED AUTHOR AUTHOR'S ORGANIZ ATION 03/20/2025 [facility] DATE CREATED AUTHOR AUTHOR'S ORGANIZ ATION 04/16/2025 [facility] Reason for Visit (unrecogniz ed section and content) Reason Comments New Patient Visit Specialty Diagnoses / Procedures Referred By Rj t Referred To Contact Radiology Diagnoses Left knee pain, unspecified chronicity Procedures XR knee left 4+ views Guicho Nguyen MD [address] [facility], [address] [place] [address] Referral ID Status Reason Start Date Expiration Date Visits Requested Visits Authorized [id number] Authorized Perform Procedure 08/16/2025 1 1 Reason Comments Rash Reason Comments Follow-up MRI Review Reason Onset Date Comments 12/14/24 [facility] RESCHEDULE 10/26/2024 Reason Onset Date Comments NEW PATIENT REFERRAL 03/14/2024 Reason Comments New Patient Patient is here toda y as a new patient Dx:Tardive dyskinesia Specialty Diagnoses / Procedures Referred By Rj baez Referred To Contact Neurology Diagnoses Tardive dyskinesia Brandon Velazco MD [address] [place] [address] Phone: tel: fax: Erika Huynh MD [address] [place] [address] Phone: tel: fax: Referral ID Status Reason Start Date Expiration Date Visits Requested Visits Authorized [id number] Pending Review Specialty Services Required 03/14/2024 03/14/2025 1 1 Reason Comments Diabetes Care Teams (unrecognized sec tion and content) Liner Installer Relationship Specialty Start Date End Date rPeston Riggins MD [address] [place] [address] PCP - General Family Medicine 08/16/24 Liner Installer Relationship Specialty Start Date End Date Preston Riggins MD [address] [place] [address] PCP - General Family Medicine 08/16/24 Liner Installer Relationship Specialty Start Date End Date Preston Riggins MD [address] [place] [address] PCP - General Family Medicine 04/22/23 Preston Riggins MD [address] [place] [address] PCP - Devoted 11/07/23 Liner Installer Relationship Specialty Start Date End Date Preston Riggins MD [address] [place] [address] PCP - General Family Medicine 04/22/23 Preston Riggins MD [address] [place] [address] PCP - Devoted 11/07/23 Liner Installer Relationship Specialty Start Date End Date Preston Riggins MD [address] [place] [address] PCP - General Family Medicine 08/16/24 Liner Installer Relationship Specialty Start Date End Date Preston Riggins MD [address] [place] [address] PCP - General Family Medicine 04/22/23 Preston Riggins MD [address] [facility] [address] [place] [address] PCP - Devoted 11/07/23 Liner Installer Relationship Specialty Start Date End Date Preston Riggins MD [address] [facility] [address] [place] [address] PCP - General Family Medicine 04/22/23 Preston Riggins MD [address] [facility] [address] [place] [address] PCP - Devoted 11/07/23 Liner Installer Relationship Specialty Start Date End Date Preston Riggins MD [facility] [place] [address] PCP - General 06/02/17 Liner Installer Relationship Specialty Start Date End Date Preston Riggins MD [facility] [place] [address] PCP - General 06/02/17 Liner Installer Relationship Specialty Start Date End Date Preston Riggins MD [address] [facility] [address] [place] [address] PCP - General Family Medicine 04/22/23 Keyla Fabian LPN 01/25/25 FOR RECORDS PERTAINING TO PATIENTS WHO ARE OR HAVE BEEN ENROLLED IN A CHEMICAL DEPENDENCY/SUBSTANCEABUSE PROGRAM, SOME INFORMATION MAY BE OMITTED. This clinical summary was aggregated from multiple sources. Caution should be exercised in using it in the provision of clinical care. This summary normalizes information from multiple sources, and as a consequence, information in this document may materially change the coding, format and clinical context of patient data. In addition, data may be omitted in some cases. CLINICAL DECISIONS SHOULD BE BASED ON THE PRIMARY CLINICAL RECORDS. [employer] [facility]. provides no warranty or guarantee of the accuracy or completeness of information in this document.
--- OUTSIDE RECORDS SUMMARY | 2025-05-11 21:32 | XMS_ITS | Encounter Summary ---
Author Organization [facility] Address [address] [place] [address] Care Team Providers Care End Stapler Name Role Phone Favian Wyatt MD Unavailable Favian Wyatt MD Primary Care Provider [phone] Favian Wyatt MD Unavailable Tiana Earl RN Unavailable [phone] Keyla Fabian LPN Unavailable Encounter Details Date Type Department Care Team (Late st Contact Info) Description 05/23/2023 Abstract [facility] [address] [place] [id number] Mary Lou Alarcon LPN [address] [facility] [address] [place], [place] [id number] Social History Tobacco Use Types Packs/Day Years Used Date Smoking Tobacco: Never Smokeless Tobacco: Never Alcohol Use Standard Drinks/Week Comments Never 0 (1 standard drink = 0.6 oz pur e alcohol) PHQ-2 Answer Date Recorded Patient Health Questionnaire-2 [...] suspected to have Coronavirus/COVID-19? No / Unsure 04/24/2023 3:40 PM EDT documented as of this encounter Functional Status * Over the past 2 weeks, how often have you been bothered by any of the following problems? Question Answer Date of Assessment Author Little interest or pleasure in doing things Several days 05/24/2023 3:58 PM EDT Mary Lou Alarcon LP N Feeling down, depressed, or hopeless Several days 05/24/2023 3:58 PM EDT Mary Lou Alarcon LP N Patient Health Questionnaire -2 Score 2 05/24/2023 3:58 PM EDT Mary Lou Alarcon LP N * Question Answer Date of Assessment Author Trouble falling or staying asleep, or sleeping too much More than half the days 05/24/2023 3:58 PM EDT Mary Lou Alarcon LPN Feeling tired or having little energy More than half the days 05/24/2023 3:58 PM EDT Mary Lou Alarcon LPN Poor appetite or overeating More than half the days 05/24/2023 3:58 PM EDT Mary Lou Alarcon LPN Feeling bad about yourself - or that you are a failure or have let yourself or your family down More than half the days 05/24/2023 3:58 PM EDT Mary Lou Alarcon LPN Trouble concentrating on things, such as reading the newspaper or watching television More than half the days 05/24/2023 3:58 PM EDT Mary Lou Alarcon LPN Moving or speaking so slowly that other people could have noticed? Or the opposite - being so fidgety or restless that you have been moving around a lot more than usual. Not at all 05/24/2023 3:58 PM EDT Mary Lou Alarcon LP N Thoughts that you would be better off or hurting yourself in some way Not at all 05/24/2023 3:58 PM EDT Mary Lou Alarcon L PN Patient Health Questionnaire-9 Score 12 05/24/2023 3:58 PM EDT Mary Lou Alarcon LPN * How difficult have these problems made it for you to do your work, take care of things at home, or get along with other people? Answer Date of Assessment Author Very difficult 05/24/2023 3:58 PM EDT Nisreen Alarcon LPN documented as of this encounter Plan of Treatment Upcoming Encounters Date Type Department Care Team (Late st Contact Info) Description 08/05/2025 3:30 PM EDT Office Visit [facility] [address] [facility] [address] [place] [address] Favian Wyatt MD [address] [facility] [address] [place] [address] documented as of this encounter Visit Diagnoses Not on filedocumented in this encounter Care Teams End Stapler Relationship Specialty Start Date End Date Favian Wyatt MD [address] [facility] [address] [place] [address] PCP - Kiara DIAZ 11/07/21 11/06/23 Favian Wyatt MD [address] [facility] [address] [place] [address] PCP - General Family Medicine 04/22/23 Favian Wyatt MD [address] [facility] [address] [place] [address] PCP - Devoted 11/07/23 11/06/24 Tiana Earl, RN [address] [place] [address] Clinical [facility] Family [facility] 12/14/24 01/25/25 Keyla Fabian LPN [address] [facility] [address] [place] [address] 01/25/25 documented as of this encounter
--- OUTSIDE RECORDS SUMMARY | 2025-05-11 21:32 | XMS_ITS | Encounter Summary ---
Author Organization [facility] tem Address [facility] [place]-[id number] [address] [place] [address] Care Team Providers Care Twisting Machine Operator Name Role Phone Favian Wyatt MD Primary Care Provider Encounter Details Date Type Department Care Team (Late st Contact Info) Description 01/25/2025 Telephone [facility] Neurology, A Department of [facility] [address] [place] [address] Marietta Sharma Social History Tobacco Use Types Packs/Day Years Used Date Smoking Tobacco: Never Smokeless Tobacco: Never Alcohol Use Standard Drinks/Week Comments Not Currently 0 (1 standard drink = 0.6 oz pur e alcohol) PHQ-2 Answer Date Recorded Total Score 0 01/11/2025 Childcare Answer Date Recorded Childcare Unknown 04/09/2019 Employment Answer Date Recorded Employment Unknown 04/09/2019 Hunger Screening Answer Date Recorded Within the past 12 months we worried whether our food would run out before we got money to buy more. Never True 01/11/2025 Within the past 12 months th e food we bought just didn't last and we didn't have money to get more. Never True 01/11/2025 Purpose - Life Answer Date Recorded Purpose and direction in life Unknown Comments Unknown Sex and Gender Information Value Date Recorded Sex Assigned at Not on file Legal Sex Female 5:18 PM EDT Gender Identity Not on file Sexual Orientation Not on file documented as of this encounter Miscellaneous Notes * Telephone Encounter - Marietta Sharma - 01/25/2025 2:00 PM EDT Roz with [employer] called to request provider sign 01/11/25 OV notes so they can complete prior authorization for MR brain. Please advise. * Telephone Encounter - Erika Huynh MD - 01/25/2025 2:00 PM EDT Has been completed. * Telephone Encounter - Niharika Seals RN - 01/25/2025 2:00 PM EDT Called precert back to inform of office note being signed. Spoke to Dede and she stated that theMR brain had already been approved on the (January). Inner Diameter Grinder Tool voiced understanding and thanks. documented in this encounter Plan of Treatment Not on file documented as of this encounter Visit Diagnoses Not on filedocumented in this encounter Additional Health Concerns Assessment Noted Time PHQ-9 Depression Total Score: 0 01/12/20 25 4:09 PM EST A Body Mass Index follow-up plan has been documented for the patient 01/28/2025 9:48 AM EDT documented as of this encounter Care Teams Twisting Machine Operator Relationship Specialty Start Date End Date Favian Wyatt MD [facility] [place] [address] PCP - General 06/02/17 documented as of this encounter
--- OUTSIDE RECORDS SUMMARY | 2025-05-11 21:32 | XMS_ITS | Encounter Summary ---
Author Organization [facility] Address [address] [place] [address] Care Team Providers Care Pharmacy Informaticist Name Role Phone Favian Wyatt MD Primary Care Provider [phone] Keyla Fabian LPN Unavailable Encounter Details Date Type Department Care Team (Late st Contact Info) Description 02/22/2025 External Result Encounter [facility] External Department Unsolicited Provider, Generic External Data Social History Tobacco Use Types Packs/Day Years [...] and Family Not on file 05/17/2024 Attends Anglican Services Not on file 05/17 Active Member [...] Recorded Patient Health Questionnaire-2 Score 0 01/31/2025 [facility] - Occupational Stress Questionnaire Answer Date [...] any time in the past 12 m [facility], were you homeless or living in a [place] health care facility (including now)? No 05/17/2024 Comments Unknown Sex [...] 3:30 PM EDT Office Visit [facility] [place] [address] [facility] [address] [place] [address] Favian Wyatt MD [address] [facility] 110 [place] [address] documented as of this encounter Procedures Procedure Name Priority Date/Time Associated Diagnosis Comments MR BRAIN WO CONTRAST 02/22/2025 3:28 PM EDT documented in this encounter Results * MR brain wo contrast (02/22/2025 3:28 PM EDT) Anatomical Region Laterality Modality Brain Magnetic Resonan ce 02/22/2025 3:28 PM EDT Narrative 02/22/2025 3:27 PM EDT THIS EXAM WAS PERFORMED AT [facility] MR BRAIN WO CONT 02/20/2025 1:24 PM INDICATION: Parkinsonism, unspecified Parkinsonism type (CMS-HCC); Gait instability; Involuntary movements COMPARISON: None TECHNIQUE: Multiplanar multisequence MR images of the brain were obtained without intravenous contrast. Volumetric 3-D series were sent for NeuroQuant age-related atrophy report, this is generated at an independent workstation, by a third green party vendor, to further assess anatomy. Images [...] associated with chronic microvascular ischemic change. Deon Combs MD have personally reviewed the image(s) and agree with and/or edited the report Finalized by Deon Conde MD on 02/22/2025 3:27 PM 9 The copy-to physician of this order is FAVIAN Mahmood The ordering physician of this order is RICKEY Grant Procedure Note Radiology, Radiologist, - 02/22/2025 THIS EXAM WAS PERFORMED AT [facility] BRAIN WO CONT 02/20/2025 1:24 PM INDICATION: Parkinsonism, unspecified Parkinsonism type (CMS-HCC); Gaitinstability; Involuntary movements COMPARISON: None TECHNIQUE: Multiplanar multisequence MR images of the brain were obtainedwithout intravenous contrast. Volumetric 3-D series were sent for NeuroQuant age-related atrophy report,this is generated at an independent workstation, by a third green party vendor,to further assess anatomy. Images quality [...] Provider IMG MRI PROCEDURE S Final Result documented in this encounter Visit Diagnoses Not on filedocumented in this encounter Additional Health Concerns Assessment Noted Time PHQ-9 Depression Total Score: 0 06/27/20 24 2:00 PM EDT documented as of this encounter Care Teams Pharmacy Informaticist Relationship Specialty Start Date End Date Favian Wyatt MD [address] [facility] [address] [place] [address] PCP - General Family Medicine 04/22/23 Keyla Fabian LPN [address] [facility] [address] [place] [address] 01/25/25 documented as of this encounter
--- OUTSIDE RECORDS SUMMARY | 2025-05-11 21:32 | XMS_ITS | Encounter Summary ---
Author Organization [facility] Address [address] [place] [address] Care Team Providers Care Video Presentation Operator Name Role Phone Favian Wyatt MD Primary Care Provider [phone] Tiana Earl RN Unavailable [phone] Keyla Fabian LPN Unavailable Encounter Details Date Type Department Care Team (Late st Contact Info) Description 01/02/2025 Abstract [facility] [address] [facility] [address] [place] [address] Favian Wyatt MD [address] [facility] [address] [place] [address] Social History Tobacco Use Types Packs/Day Years [...] and Family Not on file 05/17/2024 Attends Faith Services Not on file 05/17 Active Member [...] Recorded Patient Health Questionnaire-2 Score 0 06/27/2024 [facility] - [...] time in the past 12 m [facility], were you homeless or living in a skilled nursing (including now)? No 05/17/2024 Comments Unknown Sex [...] 08/05/2025 3:30 PM EDT Office Visit [facility] [address] [facility] 110 [place] [address] Favian Wyatt MD [address] [facility] 110 [place] [address] documented as of this encounter Visit Diagnoses Not on filedocumented in this encounter Additional Health Concerns Assessment Noted Time PHQ-9 Depression Total Score: 0 06/27/20 24 2:00 PM EDT documented as of this encounter Care Teams Video Presentation Operator Relationship Specialty Start Date End Date Favian Wyatt MD [address] [facility] [address] [place] [address] PCP - General Family Medicine 04/22/23 Tiana Earl, CHUY [address] [place] [address] Clinical Advocate Family Medicine 12/14/24 01/25/25 Keyla Fabian LPN [address] [facility] [address] [place] [address] 01/25/25 documented as of this encounter
--- OUTSIDE RECORDS SUMMARY | 2025-05-11 21:32 | XMS_ITS | Encounter Summary ---
Author Organization [facility] Address [address] [place] [address] Care Team Providers Care Newspaper Delivery Counselor Name Role Phone Favian Riggins MD Primary Care Provider [phone] Favian Riggins MD Unavailable Tiana Earl RN Unavailable [phone] Keyla Fabian LPN Unavailable Encounter Details Date Type Department Care Team (Late st Contact Info) Description 07/13/2024 Clinisync Result Encounter [facility] External Department Unsolicited Wyatt Lim, PA [address] [facility] [address] [place] [address] Social History Tobacco Use Types Packs/Day Years [...] and Family Not on file 05/17/2024 Attends Sabianism Services Not on file 05/17 Active Member [...] Recorded Patient Health Questionnaire-2 Score 0 06/27/2024 [facility] [...] any time in the past 12 m [facility], were you homeless or living in a long term (including now)? No 05/17/2024 Comments Unknown Sex [...] 08/05/2025 3:30 PM EDT Office Visit [facility] [address] [facility] 110 [place] [address] Favian Riggins MD [address] [facility] [address] [place] [address] documented as of this encounter Procedures Procedure Name Priority Date/Time Associated Diagnosis Comments MM TOMOSYNTHESIS SCREENING BI 07/13/2024 2:39 PM EDT documented in this encounter Results * MM TOMOSYNTHESIS SCREENING BI (07/13/2024 2:39 PM EDT) Anatomical Region Laterality Modality Other 07/13/2024 2:39 PM EDT Narrative 07/13/2024 2:40 [place] [address] Mammography Report Signed Patient: BETTYE MUSE MR#: [id number] : 1955 Acct:[id number] Age/Sex: 69 / F ADM Date: 07/11/24 Loc: MAMMO Attending Dr: WYATT LIM Ordering Physician: WYATT LIM Results: Date of Service: 07/11/24 Follow Up: Procedure(s): MM tomosynthesis screening BI Accession Number(s): [id number] cc: FAVIAN RIGGINS ; WYATT LIM Patient Name: BETTYE MUSE MR#: [id number] : 1955 Exam Date: 07/11/2024 Ordering Doctor: DR WYATT LIM PA RADIOLOGY REPORT PROCEDURE: MM TOMOSYNTHESIS SCREENING [...] bone cancer at age 81. LOCATION: [facility] BREAST COMPOSITION: The breasts are heterogeneously [...] Signed By: 07/13/24 1440 DD/ 1439 TD/TT: Surveillance Officer: Procedure Note Radiology, Radiologist, - 07/13/2024 [place] [address] Mammography Report Signed Patient: VENUS,BETTYE LMR#: [id number] : 1955cct:[id number] Age/Sex: 69 / FADM Date: 07/11/24 Loc: MAMMO Attending Dr: WYATT LIM Ordering Physician: WYATT LIM MResults: Date of Service: 07/11/24Follow Up: Procedure(s): MM tomosynthesis screening BI Accession Number(s): [id number] cc: FAVIAN RIGGINS ; WYATT LIM Patient Name: BETTYE MUSE MR#: [id number] : 1955 Exam Date: 07/11/2024 Ordering Doctor: DR WYATT LIM PA RADIOLOGY REPORT PROCEDURE: MM TOMOSYNTHESIS SCREENING [...] bone cancer at age 81. LOCATION: [facility] BREAST COMPOSITION: The breasts are heterogeneously [...] M.D. Signed By:07/13/24 1440 DD/ 1439 TD/TT: Surveillance Officer: Wyatt [facility] Final Result documented in this encounter Visit Diagnoses Not on filedocumented in this encounter Additional Health Concerns Assessment Noted Time PHQ-9 Depression Total Score: 0 06/27/20 24 2:00 PM EDT documented as of this encounter Care Teams Newspaper Delivery Counselor Relationship Specialty Start Date End Date Favian Riggins MD [address] [facility] [address] [place] [address] PCP - General Family Medicine 04/22/23 Favian Riggins MD [address] [facility] [address] [place] [address] PCP - Devoted 11/07/23 11/06/24 Tiana Earl, RN [address] [place] [address] Clinical Advocate Family Medicine 12/14/24 01/25/25 Keyla Fabian LPN [address] [facility] 110 [place] [address] 01/25/25 documented as of this encounter
--- OUTSIDE RECORDS SUMMARY | 2025-05-11 21:32 | XMS_ITS | Encounter Summary ---
Author Organization [facility] Address [address] [place] [address] Phone Care Team Providers Care Litharge Supervisor Name Role Phone Favian Wyatt MD Primary Care Provider [phone] Reason for Referral * Cardiovascular (Routine) - Authorized Specialty Diagnoses / Procedures Referred By Contac t Referred To Contact Diagnoses Other tear of medial meniscus, current injury, left knee, initial encounter Procedures ECG 12 Lead Malcolm Cronin MD [address] [facility], [address] [place] [address] Phone: tel: fax: Referral ID Status Reason Start Date Expiration Date V isits Requested Visits Authorized [id number] Authorized 10/12/2024 10/12/2025 1 1 Encounter Details Date Type Department Care Team (Late st Contact Info) Description 10/12/2024 Transcribe Orders [facility] [address] [place] [address] Malcolm Cronin MD [address] [facility], [address] [place] [phone] Other tear of medial meniscus, current injury, left knee, initial encounter (Primary Dx); Abnormal auditory function study; Abnormal results of liver function studies; Abnormal coagulation profile Social History Tobacco Use Types Packs/Day Years [...] as of this encounter Plan of Treatment Scheduled Orders Name Type Priority Associated Diagnoses Orde r Schedule CBC and Auto Differential Lab Routine Other tear of medial meniscus, current injury, left knee, initial encounter Abnormal auditory function study Expected: 10/13/2024, Expires: 10/12/2025 Comprehensive Metabolic Panel Lab Routine Other tear of medial meniscus, current injury, left knee, initial encounter Expected: 10/13/2024, Expires: 10/12/2025 ECG 12 Lead ECG Routine Other tear of medial meniscus, current injury, left knee, initial encounter Expected: 10/13/2024, Expires: 10/12/2025 Protime-INR Lab Routine Other tear of medial meniscus, current injury, left knee, initial encounter Abnormal results of liver function studies Expected: 10/13/2024, Expires: 10/12/2025 aPTT Lab Routine Other tear of medial meniscus, current injury, left knee, initial encounter Abnormal coagulation profile Expected: 10/13/2024, Expires: 10/12/2025 documented as of this encounter Visit Diagnoses Diagnosis Other tear of medial meniscus, current injury, left knee, initial encounter- Primary Abnormal auditory function study Nonspecific abnormal auditory function studies Abnormal results of liver function studies Nonspecific abnormal results of liver function study Abnormal coagulation profile documented in this encounter Care Teams Litharge Supervisor Relationship Specialty Start Date End Date Favian Wyatt MD [address] [place] [address] PCP - General Family Medicine 08/16/24 documented as of this encounter
--- OUTSIDE RECORDS SUMMARY | 2025-05-11 21:32 | XMS_ITS | Encounter Summary ---
Author Organization [facility] Address [address] [facility] [address] Care Team Providers Care Fur Polisher Name Role Phone Favian Wyatt MD Primary Care Provider [phone] Keyla Fabian LPN Unavailable Encounter Details Date Type Department Care Team (Late st Contact Info) Description 02/25/2025 Abstract [facility] [address] [facility] 110 [place] [address] Favian Wyatt MD [address] [facility] 110 [place] [address] Social History Tobacco Use Types Packs/Day Years [...] and Family Not on file 05/17/2024 Attends Amish Services Not on file 05/17 Active Member [...] Recorded Patient Health Questionnaire-2 Score 0 01/31/2025 [facility] - Occupational Stress Questionnaire Answer Date [...] time in the past 12 m [facility], were you homeless or living in a retirement (including now)? No 05/17/2024 Comments Unknown Sex [...] Visit [facility] [address] [facility] 110 [place] [address] Favian Wyatt MD [address] [facility] [address] [place] [address] documented as of this encounter Visit Diagnoses Not on filedocumented in this encounter Additional Health Concerns Assessment Noted Time PHQ-9 Depression Total Score: 0 06/27/20 24 2:00 PM EDT documented as of this encounter Care Teams Fur Polisher Relationship Specialty Start Date End Date Favian Wyatt MD [address] [facility] [address] [place] [address] PCP - General Family Medicine 04/22/23 Keyla Fabian LPN [address] [facility] [address] [place] [address] 01/25/25 documented as of this encounter
--- OUTSIDE RECORDS SUMMARY | 2025-05-11 21:32 | XMS_ITS | Patient Health Record ---
Author Organization [facility] Address [address] [facility] [place] [address] Care Team Providers Care Assistant Professor Of Religion Name Role Phone xxNoel Perry Primary Care Provider [phone] Reason For Referral No Information Immunizations Vaccine Route Administration Date Status Comme nts MODERNA IM Intramuscular 09/03/2021 Administered MODERNA IM Intramuscular 10/05/2021 Administered Plan Of Treatment No Information Insurance Providers Payer Name Payer Address Payer Phone Subscriber Number Group Number Insured Name Patient Relationship to Insured Coverage Start Date Coverage End Date ANTHEM Primary [address] [place] [address] [phone] [id number] TRENTON DONOVAN Self - patient is the insured 1
--- OUTSIDE RECORDS SUMMARY | 2025-05-11 21:32 | XMS_ITS | Encounter Summary ---
Author Organization [facility] Address [address] [place] [address] Care Team Providers Care Appliquer Name Role Phone Favian Wyatt MD Primary Care Provider [phone] Keyla Fabian LPN Unavailable Encounter Details Date Type Department Care Team (Late st Contact Info) Description 04/11/2025 Orders Only [facility] [address] [place] [address] [place] [id number] Mary Lou Alarcon LPN [address] [place] [address] Estrogen deficiency; Encounter for screening mammogram for malignant neoplasm of breast Social History Tobacco Use Types Packs/Day Years [...] and Family Not on file 05/17/2024 Attends Oriental Orthodox Services Not on file 05/17 Active Member [...] Patient Health Questionnaire-2 Score 0 01/31/2025 [facility] - Occupational [...] any time in the past 12 m [facility], were you homeless or living in a long-term (including now)? No 05/17/2024 Comments Unknown Sex [...] [facility] [address] [facility] 110 [place] [address] Favian Wyatt MD [address] [facility] 110 [place] [address] documented as of this encounter Visit Diagnoses Diagnosis Estrogen deficiency Other ovarian failure Encounter for screening mammogram for malignant neoplasm of breast documented in this encounter Additional Health Concerns Assessment Noted Time PHQ-9 Depression Total Score: 0 06/27/20 24 2:00 PM EDT documented as of this encounter Care Teams Appliquer Relationship Specialty Start Date End Date Favian Wyatt MD [address] [facility] [address] [place] [address] PCP - General Family Medicine 04/22/23 Keyla Fabian LPN [address] [facility] [address] [place] [address] 01/25/25 documented as of this encounter
--- OUTSIDE RECORDS SUMMARY | 2025-05-11 21:33 | XMS_ITS | Encounter Summary ---
Author Organization [facility] Address [address] [place] [address] Care Team Providers Care Senior Software Analyst Name Role Phone Favian Wyatt MD Unavailable Favian Wyatt MD Primary Care Provider [phone] Favian Wyatt MD Unavailable Tiana Earl RN Unavailable Keyla Fabian LPN Unavailable Encounter Details Date Type Department Care Team (Late st Contact Info) Description 09/16/2023 Abstract [facility] [address] [facility] 110 [place] [address] Favian Wyatt MD [address] [facility] 110 [place], [place] [id number] Social History Tobacco Use Types Packs/Day Years Used Date Smoking Tobacco: Never Smokeless Tobacco: Never Alcohol Use Standard Drinks/Week Comments Never 0 (1 standard drink = 0.6 oz pure alcohol) Caffeine intake: more than 4 cups per day coffee, soda PHQ-2 Answer Date Recorded Patient Health Questionnaire-2 Score 0 06/14/2023 Comments Unknown Sex and Gender Information Value Date Recorded Sex Assigned at Not on file Legal Sex Female 6:40 PM EDT Gender Identity Not on file Sexual Orientation Not on file documented as of this encounter Plan of Treatment Upcoming Encounters Date Type Department Care Team (Late Contact Info) Description 08/05/2025 3:30 PM EDT Office Visit [facility] [address] [facility] 110 [place] [address] Favian Wyatt MD [address] [facility] 110 [place] [address] documented as of this encounter Visit Diagnoses Not on filedocumented in this encounter Additional Health Concerns Assessment Noted Time PHQ-9 Depression Total Score: 12 05/24/ 023 3:58 PM EDT documented as of this encounter Care Teams Senior Software Analyst Relationship Specialty Start Date End Date Favian Wyatt MD [address] [facility] [address] [place] [address] PCP - Kiara DIAZ 11/07/21 11/06/23 Favian Wyatt MD [address] [facility] [address] [place] [address] PCP - General Family Medicine 04/22/23 Favian Wyatt MD [address] [facility] [address] [place] [address] PCP - Devoted 11/07/23 11/06/24 Tiana Earl, RN [address] [place] [address] Clinical Advocate Family Medicine 12/14/24 01/25/25 Keyla Fabian LPN [address] [facility] 110 [place] [address] 01/25/25 documented as of this encounter
--- OUTSIDE RECORDS SUMMARY | 2025-05-11 21:33 | XMS_ITS | Encounter Summary ---
Author Organization [facility] Address [address] [place] [address] Care Team Providers Care Cotton Tipper Name Role Phone Favian Wyatt MD Primary Care Provider [phone] Favian Wyatt MD Unavailable Tiana Earl RN Unavailable [phone] Keyla Fabian LPN Unavailable Encounter Details Date Type Department Care Team (Late st Contact Info) Description 08/16/2024 Clinisync Result Encounter [facility] External Department Unsolicited Provider, [...] and Family Not on file 05/17/2024 Attends Baptism Services Not on file 05/17 Active Member [...] Recorded Patient Health Questionnaire-2 Score 0 06/27/2024 [facility] - Occupational Stress Questionnaire Answer Date Recorded [...] any time in the past 12 m [facility], were you homeless or [...] EDT Office Visit [facility] [place] 112 [facility] 110 [place] [address] Favian Wyatt MD 112 [facility] 110 [place], [place] [id number] documented as of this encounter Procedures Procedure Name Priority Date/Time Associated Diagnosis Comments XR KNEE 4+ VIEWS LEFT 08/16/2024 3:37 PM EDT documented in this encounter Results * XR knee 4+ views left (08/16/2024 3:37 PM EDT) Anatomical Region Laterality Modality Lower Extremities, Knee Left Radiogra phic Imaging 08/16/2024 3:37 PM EDT Narrative 08/17/2024 5:43 PM EDT Interpreted By: Colin Rhodes, STUDY: XR KNEE LEFT 4+ VIEWS; ; 08/16/2024 3:50 pm INDICATION: Signs/Symptoms:pain. ,M25.562 Pain in left knee COMPARISON: None. ACCESSION NUMBER(S): [id number] ORDERING CLINICIAN: GUICHO NGUYEN FINDINGS: Left knee, four views There is no fracture. There is no dislocation. Mild osteophytosis in the medial compartment. Otherwise there are no degenerative changes. There is no effusion seen. There is no soft tissue abnormality seen. IMPRESSION: Mild medial compartment osteoarthritis. No acute abnormality MACRO: None Signed by: Colin Rhodes 08/17/2024 5:43 PM Dictation workstation: [id number] Procedure Note Radiology, Radiologist, - 08/17/2024 Interpreted By: Colin Rhodes, STUDY: XR KNEE LEFT 4+ VIEWS; ; 08/16/2024 3:50 pm INDICATION: Signs/Symptoms:pain. ,M25.562 Pain in left knee COMPARISON: None. ACCESSION NUMBER(S): [id number] ORDERING CLINICIAN: GUICHO NGUYEN FINDINGS: Left knee, four views There is no fracture. There is no dislocation. Mild osteophytosis in the medial compartment. Otherwise there are no degenerative changes. There is no effusion seen. There is no soft tissue abnormality seen. IMPRESSION: Mild medial compartment osteoarthritis. No acute abnormality MACRO: None Signed by: Colin Rhodes 08/17/2024 5:43 PM Dictation workstation: [id number] Generic External Data Provider IMG XR PROCEDURES Final Result documented in this encounter Visit Diagnoses Not on filedocumented in this encounter Additional Health Concerns Assessment Noted Time PHQ-9 Depression Total Score: 0 06/27/20 24 2:00 PM EDT documented as of this encounter Care Teams Cotton Tipper Relationship Specialty Start Date End Date Favian Wyatt MD [address] [address] PCP - General Family Medicine 04/22/23 Favian Wyatt MD [address] [facility] [address] [place] [address] PCP - Devoted 11/07/23 11/06/24 Tiana Earl, CHUY [address] [place] [address] Clinical Advocate Family Medicine 12/14/24 01/25/25 Keyla Fabian LPN [address] [address] 01/25/25 documented as of this encounter
--- OUTSIDE RECORDS SUMMARY | 2025-05-11 21:33 | XMS_ITS | Encounter Summary ---
Author Organization [facility] Address [address] [place] [address] Care Team Providers Care Pneumatic Riveter Name Role Phone Favian Riggins MD Primary Care Provider [phone] Favian Riggins MD Unavailable Tiana Earl RN Unavailable [phone] Keyla Fabian LPN Unavailable Encounter Details Date Type Department Care Team (Late st Contact Info) Description 09/05/2024 Clinisync Result Encounter [facility] External Department Unsolicited [...] and Family Not on file 05/17/2024 Attends Cheondoism Services Not on file 05/17 Active Member [...] Questionnaire-2 Score 0 06/27/2024 [facility] - Occupational Stress Questionnaire Answer Date [...] any time in the past 12 m [facility], were you homeless or living in a care home (including now)? No 05/17/2024 Comments Unknown [...] EDT Office Visit [facility] [place] 112 [facility] [address] [place] [address] Favian Riggins MD 112 [facility] 110 [place], [place] [id number] documented as of this encounter Procedures Procedure Name Priority Date/Time Associated Diagnosis Comments MR KNEE LT WO CON 09/05/2024 6:0 2 AM EDT documented in this encounter Results * MR KNEE LT WO CON (09/05/2024 6:02 AM EDT) Anatomical Region Laterality Modality Other 09/05/2024 6:02 AM EDT Narrative 09/05/2024 6:04 [place] [address] Magnetic Resonance Report Signed Patient: BETTYE MUSE MR#: [id number] : 1955 Acct:[id number] Age/Sex: 69 / F ADM Date: 09/03/24 Loc: MRI Attending Dr: Non-Staff Physician Kimberly Ordering Physician: PhysicianKenzie M.D. Date of Service: 09/03/24 Procedure(s): MR knee LT wo con Accession Number(s): [id number] cc: FAVIAN RIGGINS ; PhysicianSorayaStaff Kimberly The [place] [address] Patient Name: BETTYE MUSE MRN: [facility]:[id number] date: 1955 Sex: F Assigned Patient Location: MRI Current Patient Location: Accession/Order Number: [id number] Exam Date: 09/03/2024 14:45 Report Date: 09/05/2024 06:02 At the request of: NON-STAFF PHYSICIAN Procedure: MR knee LT wo con EXAMINATION: MR knee LT wo con HISTORY: Left Knee Pain COMPARISON: No relevant comparison available. TECHNIQUE: A complete multi-planar MRI was performed. FINDINGS: MEDIAL COMPARTMENT MEDIAL MENISCUS: Undersurface tear of the posterior horn. CARTILAGE: No visible defect. BONES: No marrow pathology, fracture, or significant arthropathy. MCL AND MEDIAL CAPSULE: Grade I sprain of the medial collateral ligament. LATERAL COMPARTMENT LATERAL MENISCUS: No visible tear or significant degeneration. CARTILAGE: No visible defect. BONES: No marrow pathology, fracture, or significant arthropathy. LCL/POSTEROLAT COMPLEX: Normal lateral collateral ligament, fascicles, lateral capsule and ligaments. ANTERIOR COMPARTMENT PATELLA: No marrow pathology, fracture, or significant arthropathy. CARTILAGE: No visible defect. TENDONS: Normal. EFFUSION: None. No synovitis or loose bodies. ACL: Normal appearing ligament. PCL: Normal appearing ligament. MENISCOFEMORAL: Normal meniscofemoral ligaments. OTHER: Negative. MR/MR knee LT wo con IMPRESSION: 1. Medial meniscus posterior horn undersurface tear. 2. Mild strain of the medial collateral ligament. Electronically authenticated by: CHRISTIANO JOHNSON Date: 09/05/2024 06:02 Dictated By: Christiano Johnson M.D. Signed By: 09/05/24603 DD/ 1 TD/TT: Interpreter: Procedure Note Radiology, Radiologist, MD - 09/05/2024 [place] [address] Magnetic Resonance Report Signed Patient: BETTYE MUSE LMR#: [id number] : 1955cct:[id number] Age/Sex: 69 / FADM Date: 09/03/24 Loc: MRI Attending Dr: Samantha-Staff Physician Harris Ordering Physician: Kenzie Hinkle M.D. Date of Service: 09/03/24 Procedure(s): MR knee LT wo con Accession Number(s): [id number] cc: FAVIAN RIGGINS ; Physician,Kenzie [place] [address] Patient Name: BETTYE MUSE MRN: [facility]:[id number] date: 1955 Sex: F Assigned Patient Location: MRI Current Patient Location: Accession/Order Number: [id number] Exam Date: 09/03/2024 14:45 Report Date: 09/05/2024 06:02 At the request of: NON-STAFF PHYSICIAN Procedure: MR knee LT wo con EXAMINATION: MR knee LT wo con HISTORY: Left Knee Pain COMPARISON: No relevant comparison available. TECHNIQUE: A complete multi-planar MRI was performed. FINDINGS: MEDIAL COMPARTMENT MEDIAL MENISCUS: Undersurface tear of the posterior horn. CARTILAGE: No visible defect. BONES: No marrow pathology, fracture, or significant arthropathy. MCL AND MEDIAL CAPSULE: Grade I sprain of the medial collateral ligament. LATERAL COMPARTMENT LATERAL MENISCUS: No visible tear or significant degeneration. CARTILAGE: No visible defect. BONES: No marrow pathology, fracture, or significant arthropathy. LCL/POSTEROLAT COMPLEX: Normal lateral collateral ligament, fascicles,lateral capsule and ligaments. ANTERIOR COMPARTMENT PATELLA: No marrow pathology, fracture, or significant arthropathy. CARTILAGE: No visible defect. TENDONS: Normal. EFFUSION: None. No synovitis or loose bodies. ACL: Normal appearing ligament. PCL: Normal appearing ligament. MENISCOFEMORAL: Normal meniscofemoral ligaments. OTHER: Negative. MR/MR knee LT wo con IMPRESSION: 1. Medial meniscus posterior horn undersurface tear. 2. Mild strain of the medial collateral ligament. Electronically authenticated by: CHRISTIANO JOHNSON Date: 09/05/2024 06:02 Dictated By: Christiano Johnson M.D. Signed By:09/05/24603 DD/ 1 TD/TT: Interpreter: Generic External Data Provider [facility] Final Result documented in this encounter Visit Diagnoses Not on filedocumented in this encounter Additional Health Concerns Assessment Noted Time PHQ-9 Depression Total Score: 0 06/27/20 24 2:00 PM EDT documented as of this encounter Care Teams Pneumatic Riveter Relationship Specialty Start Date End Date Favian Riggins MD 112 [facility] 110 [place] [address] PCP - General Family Medicine 04/22/23 Favian Riggins MD 112 [facility] 110 [place] [address] PCP - Devoted 11/07/23 11/06/24 Tiana Earl, RN [address] [place] [address] Clinical Advocate Family Medicine 12/14/24 01/25/25 Keyla Fabian LPN 112 [facility] 110 [place] [address] 01/25/25 documented as of this encounter
--- OUTSIDE RECORDS SUMMARY | 2025-05-11 21:33 | XMS_ITS | Encounter Summary ---
Author Organization [facility] Address [address] [place] [address] Care Team Providers Care Lease Examiner Name Role Phone Favian Wyatt MD Primary Care Provider [phone] Favian Wyatt MD Unavailable Tiana Earl RN Unavailable [phone] Keyla Fabian LPN Unavailable Encounter Details Date Type Department Care Team (Late Contact Info) Description 02/06/2024 Abstract [facility] [address] [facility] 110 [place] [phone] Favian Wyatt MD [address] [facility] 110 [place] [address] Social History Tobacco Use Types Packs/Day Years [...] Visit [facility] [address] [facility] 110 [place] [address] Favian Wyatt MD [address] [facility] 110 [place] [address] documented as of this encounter Visit Diagnoses Not on filedocumented in this encounter Additional Health Concerns Assessment Noted Time PHQ-9 Depression Total Score: 12 05/24/ 023 3:58 PM EDT documented as of this encounter Care Teams Lease Examiner Relationship Specialty Start Date End Date Favian Wyatt MD [address] [facility] [address] [place] [address] PCP - General Family Medicine 04/22/23 Favian Wyatt MD [address] [facility] [address] [place] [address] PCP - Devoted 11/07/23 11/06/24 Tiana Earl, RN [address] [place] [address] Clinical Advocate Family Medicine 12/14/24 01/25/25 Keyla Fabian LPN [address] [facility] 110 [place] [address] 01/25/25 documented as of this encounter
--- OUTSIDE RECORDS SUMMARY | 2025-05-11 21:33 | XMS_ITS | Clinical Summary ---
Author Organization [facility]along [facility] Address [id number] [address] [place] [address] Care Team Providers Care Fire Safety Inspector Name Role Phone Favian Wyatt MD Primary Care Provider [phone] Allergies Active Allergy Reactions Criticality Noted Date Comments Nalbuphine 07/22/2017 Brexpiprazole 06/04/2021 Tardive Dyskinesia Medications * This document contains information received from the source organization and may not represent a complete record from that organization. atenolol (TENORMIN) 50 mg tablet 08/26/20 17 Active estradiol (ESTRACE) 0.5 mg tablet 09/19/20 17 Active ARMOUR THYROID 90 mg tablet 3 09/19/20 17 Active CALCIUM CARBONATE-VITAMI N D3 ORAL 12/24/19 04 Active metFORMIN (GLUCOPHAGE) 500 mg tablet Take 1 tablet (500 mg total) by mouth in the morning and 1 tablet (500 mg total) in the evening. Take with meals. Active atorvastatin (LIPITOR) 20 mg tablet Take 1 tablet (20 mg total) by mouth in the morning. 08/18/20 21 Active losartan (COZAAR) 100 mg tablet Take 1 tablet (100 mg total) by mouth in the morning. 08/29/20 21 Active FARXIGA 5 mg tablet Take 1 tablet (5 mg total) by mouth in the morning. 09/20/20 22 Active lamoTRIgine (LaMICtal) 150 mg tabletIndication s:Major depressive disorder, recurrent episode, moderate (CMS-HCC) TAKE 1 TABLET BY MOUTH IN THE MORNING 90 tablet 3 09/10/20 24 Active ALPRAZolam (XANAX) 0.25 mg tabletIndication s:Generalized anxiety disorder Take 1 tablet (0.25 mg total) by mouth daily as needed for anxiety. 30 tablet 09/25/20 24 Active traZODone (DESYREL) 50 mg tablet Take 2 tablets (100 mg total) by mouth nightly. 180 tablet 3 09/25/20 24 Active valbenazine (INGREZZA) 80 mg capsuleIndicatio ns:Dyskinesia, tardive Take 1 capsule by mouth once daily. 30 capsule 11 01/29/20 25 Active venlafaxine XR (EFFEXOR-XR) 150 mg 24 hr capsule Take 2 capsules (300 mg total) by mouth in the morning. 180 capsule 3 04/15/20 25 Active gabapentin (NEURONTIN) 300 mg capsuleIndicatio ns:Parkinsonism, unspecified Parkinsonism type (CMS-HCC),Involu ntary movements,Tremor s of nervous system Take 1 capsule (300 mg total) by mouth 3 (three) times a day. 90 capsule 5 04/15/20 25 Active venlafaxine XR (EFFEXOR-XR) 150 mg 24 hr capsule Take 2 capsules (300 mg total) by mouth every morning. 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[facility]); Chronic idiopathic constipation; Tremors of nervous system 03/19/2025 Travel 03/07/2025 1:30 PM EDT - 03/07/2025 11:59 PM EDT Hospital Encounter [facility] [address] [place] [address] Erika Huynh MD Discharge Disposition: Home 03/07/2025 9:48 AM EDT - 03/07/2025 1:29 PM EDT Hospital Encounter [facility] [address] [place] [address] Erika Huynh MD Discharge Disposition: Home 03/07/2025 8:53 AM EDT - 03/07/2025 9:47 AM EDT Hospital Encounter [facility] [address] [place] [address] Erika Huynh MD Parkinsonism, unspecified Parkinsonism type ([facility]); Gait instability; Involuntary movements Discharge Disposition: Home 03/07/2025 Travel 02/20/2025 12:53 PM EDT - 02/20/2025 11:59 PM EDT Hospital Encounter [facility] [address] [place] [phone] Erika Huynh MD Parkinsonism, unspecified Parkinsonism type ([facility]); Gait instability; Involuntary movements Discharge Disposition: Home from Last 3 Months Social History Tobacco Use Types Packs/Day Years Used Date Smoking Tobacco: Never Smokeless Tobacco: Never Tobacco Cessation:Counseling Given: Not Answered Alcohol Use Standard Drinks/Week Comments Not Currently [...] got money to buy more. Never True 03/19/2025 Within the past 12 months th e food we bought just didn't last and we didn't have money to get more. Never True 03/19/2025 Purpose - Life Answer Date Recorded Purpose and direction in life Unknown Comments Unknown Sex and Gender Information Value Date Recorded Sex Assigned at Not on file Legal Sex Female 5:18 PM EDT Gender Identity Not on file Sexual Orientation Not on file Last Filed Vital Signs Vital Sign Reading Time Taken Comments Blood Pressure 122/82 03/19/2025 2:54 PM EDT Pulse 57 03/19/2025 2:54 PM EDT Temperature - - Respiratory Rate - - Oxygen Saturation - - Inhaled Oxygen Concentration - - Weight 77.6 kg (171 lb) 03/19/2025 2:54 PM EDT Height 154.9 cm (5' 1 ) 01/11/2025 4:08 PM EST Body Mass Index 32.31 01/11/2025 4:08 PM EST Plan of Treatment Health Maintenance Due Date Last Done Comments Fall Risk Screening 02/14/2021 DTaP,Tdap and Td Vaccines (2 - Td or Tdap) 09/25/2022 09/25/2012 COVID-19 Vaccine (2023-2 5 season) 2024 04/14/2022, 10/05/2021, 09/03/2021 Influenza Vaccine 07/08/2025 10/03/2023, , 10/26/2021, Additional history exists Adult BMI Follow Up Plan 01/11/2026 01/11/2025 Depression Screening 01/11/2026 01/11/2025 Adult BMI Screening 03/19/2026 03/19/2025 Tobacco Screening 03/19/2026 03/19/2025 Zoster (Shingles) Vaccine Completed 03/11/2022, Medical Devices Not on file Procedures Procedure Name Priority Date/Time Associated Diagnosis Comments NM BRAIN IMAGING SPECT Routine 03/07/2025 2:31 PM EDT Parkinsonism, unspecified Parkinsonism type (CMS-HCC) Gait instability Involuntary movements MR BRAIN WO CONT Routine 02/20/2025 1:55 PM EDT Parkinsonism, unspecified Parkinsonism type (CMS-HCC) Gait instability Involuntary movements from Last 3 Months Results * NM brain imaging SPECT (03/07/2025 2:31 PM EDT) Anatomical Region Laterality Modality Nuc Med N/A Nuclear Medicine 03/08/2025 7:40 AM EDT Narrative 03/08/2025 11:00 AM EDT [facility] CLINICAL HISTORY: 70 year-old patient with [...] findings are not suggestive of Parkinsonian syndrome. 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 Concern for primary versus secondary parkinsonism. COMPARISON: MR brain dated 02/20/25. TECHNIQUE: One hour after preparation with oral potassium iodide solution,the patient was intravenously administered 4.5 mCi of I-123 Ioflupane.Then, approximately 3 hours later, SPECT imaging of the head wasperformed. Images were reconstructed in sagittal, coronal and axialprojections. COMMENT: No areas of abnormally increased radiotracer accumulation are identifiedwithin the brain. Cortical and white matter structures demonstratesymmetric background uptake of radiotracer. On axial view there are symmetric crescent-shaped areas of radiotraceruptake about the midline in the striata. Tracer uptake in the striata isdistinct relative to the surrounding brain tissue. There are no areas ofdecreased I-123 Ioflupane accumulation to suggest depressed dopaminereceptor activity in striata. IMPRESSION: Normal crescent-shaped symmetric dopamine transporter distribution inbilateral striata. These findings are not suggestive of Parkinsoniansyndrome. Finalized by Dilma Booth MD on 03/08/2025 11:00 AM Ehad Amina [facility] ORDERABLES Final Result * MR brain without contrast (02/20/2025 1:55 PM EDT) Anatomical Region Laterality Modality Neuro, Head, Head and Neck, Neuro Covera N/A Magnetic Resonance 02/22/2025 1:25 PM EDT Narrative 02/22/2025 3:27 PM EDT MR BRAIN WO CONT 02/20/2025 1:24 PM [...] Deon Conde MD on 02/22/2025 3:27 PM Procedure Note Deon Conde MD - 02/22/2025 MR BRAIN WO CONT 02/20/2025 1:24 PM [...] Deon Conde MD on 02/22/2025 3:27 PM Erika Huynh MD IMG MRI ORDERABLES Final Result from Last 3 Months Insurance [id number] [place] [address] [employer] Care Teams Fire Safety Inspector Relationship Specialty Start Date End Date [place] [address] [place] [address] PCP - General 06/02/17
--- OUTSIDE RECORDS SUMMARY | 2025-05-11 21:33 | XMS_ITS | Clinical Summary ---
Author Organization [facility] Address [address] [place] [address] Care Team Providers Care Item Processing Clerk Name Role Phone Unavailable Primary Care Provider Unavailabl e Social History Tobacco Use Types Packs/Day Years Used Date Smoking Tobacco: Never Assessed Comments Unknown Sex and Gender Information Value Date Recorded Sex Assigned at Not on file Legal Sex Female 10:30 PM EDT Gender Identity Not on file Sexual Orientation Not on file Last Filed Vital Signs Vital Sign Reading Time Taken Comments Blood Pressure 122/78 12/18/2018 10:41 AM EST Pulse 61 12/18/2018 10:41 AM EST Temperature - - Respiratory Rate - - Oxygen Saturation 96% 12/18/2018 10:40 AM EST Inhaled Oxygen Concentration - - Weight 78.5 kg (173 lb) 12/18/2018 10:37 AM EST Height 157.5 cm (5' 2 ) 12/18/2018 10:35 AM EST Body Mass Index 31.64 12/18/2018 10:35 AM EST Plan of Treatment Not on file
--- OUTSIDE RECORDS SUMMARY | 2025-05-11 21:33 | XMS_ITS ---
Author Organization [facility] Address [address] [place] [address] Care Team Providers Care Building Illuminating Engineer Name Role Phone Favian Wyatt MD Primary Care Provider [phone] Keyla Fabian LPN Unavailable Chronic Care Management (CCM) Status:Enrolled (Active) Start date:04/19/2023 Enrollment date:05/11/2023 Enrollment reason:Identified using claims or encounter data Overview 02/06/24, 11:43 AM - Yuli Tuesday, NNAMDI- Patient gives verbal consent to be enrolled in CCM Program and understands there could be a bill for this service. Case Team Name Relationship Phone Keyla Fabian LPN(Responsible Staff) [phone] Continued Care and Services Coordination
--- OUTSIDE RECORDS SUMMARY | 2025-05-11 21:33 | XMS_ITS | Encounter Summary ---
Author Organization [facility] Address [address] [place] [address] Care Team Providers Care Picture Engraver Name Role Phone Favian Wyatt MD Primary Care Provider [phone] Favian Wyatt MD Unavailable Tiana Earl RN Unavailable Keyla Fabian LPN Unavailable Encounter Details Date Type Department Care Team (Late st Contact Info) Description 08/23/2024 Abstract [facility] [address] [facility] 110 [place] [address] Favian Wyatt MD [address] [facility] 110 [place], [place] [id number] Social History Tobacco Use Types Packs/Day Years [...] and Family Not on file 05/17/2024 Attends [employer] Services Not on file 05/17 Active Member [...] Recorded Patient Health Questionnaire-2 Score 0 06/27/2024 [facility] of Occupat ional Health - Occupational Stress [...] any time in the past 12 m [facility], were you homeless or living in a intermediate (including now)? No 05/17/2024 Comments Unknown Sex [...] 08/05/2025 3:30 PM EDT Office Visit [facility] [address] [facility] 110 [place] [address] Favian Wyatt MD [address] [facility] 110 [place] [address] documented as of this encounter Visit Diagnoses Not on filedocumented in this encounter Additional Health Concerns Assessment Noted Time PHQ-9 Depression Total Score: 0 06/27/20 24 2:00 PM EDT documented as of this encounter Care Teams Picture Engraver Relationship Specialty Start Date End Date Favian Wyatt MD [address] [facility] 110 [place] [address] PCP - General Family Medicine 04/22/23 Favian Wyatt MD [address] [facility] 110 [place] [address] PCP - Devoted 11/07/23 11/06/24 Tiana Earl RN [address] [place], [place] [id number] Clinical Advocate Family Medicine 12/14/24 01/25/25 Keyla Fabian LPN 112 [facility] 110 [place] [address] 01/25/25 documented as of this encounter
--- OUTSIDE RECORDS SUMMARY | 2025-05-11 21:33 | XMS_ITS | Encounter Summary ---
Author Organization [facility] Address [address] [place] [address] Care Team Providers Care Prison Psychiatrist Name Role Phone Favian Wyatt MD Unavailable Favian Wyatt MD Primary Care Provider [phone] Favian Wyatt MD Unavailable Tiana Earl RN Unavailable Keyla Fabian LPN Unavailable Encounter Details Date Type Department Care Team (Late st Contact Info) Description 09/19/2023 Orders Only [facility] [address] [facility] 110 [place] [address] Favian Wyatt MD [address] [facility] 110 [place], [place] [phone] Social History Tobacco Use Types Packs/Day Years [...] CI FM [address] [facility] 110 [place] [address] Favian Wyatt MD [address] [facility] 110 [place] [address] documented as of this encounter Procedures Procedure Name Priority Date/Time Associated Diagnosis Comments DIABETIC RETINOPATHY SCREENING - OU - BOTH EYES Routine 04/13/2022 3:56 PM EDT documented in this encounter Results * Diabetic Retinopathy Screening - OU - Both Eyes (04/13/2022 3:56 PM EDT) Anatomical Region Laterality Modality Head Other Narrative 04/13/2022 3:56 PM EDT Normal Favian Wyatt MD OPHTH PHOTOGRAPHY Edited Result - Final documented in this encounter Visit Diagnoses Not on filedocumented in this encounter Additional Health Concerns Assessment Noted Time PHQ-9 Depression Total Score: 12 05/24/ 023 3:58 PM EDT documented as of this encounter Care Teams Prison Psychiatrist Relationship Specialty Start Date End Date Favian Wyatt MD [address] [facility] 110 [place] [address] PCP - Kiara DIAZ 11/07/21 11/06/23 Favian Wyatt MD [address] [facility] 110 [place] [address] PCP - General Family Medicine 04/22/23 Favian Wyatt MD [address] [facility] 110 [place] [address] PCP - Devoted 11/07/23 11/06/24 Tiana Earl, RN [address] [place] [address] Clinical Advocate Family Medicine 12/14/24 01/25/25 Keyla Fabian LPN [address] [facility] 110 [place] [address] 01/25/25 documented as of this encounter
--- OUTSIDE RECORDS SUMMARY | 2025-05-11 21:33 | XMS_ITS | Encounter Summary ---
Author Organization [facility] Address [address] [place] [address] Care Team Providers Care Orthopedics Nurse Name Role Phone Favian Wyatt MD Primary Care Provider [phone] Favian Wyatt MD Unavailable Tiana Earl RN Unavailable [phone] Keyla Fabian LPN Unavailable Encounter Details Date Type Department Care Team (Late Contact Info) Description 02/06/2024 Abstract [facility] [address] [facility] 110 [place] [phone] Favian Wyatt MD [address] [facility] 110 [place] [address] Social History Tobacco Use Types Packs/Day Years [...] Visit [facility] [address] [facility] 110 [place] [address] Favian Wyatt MD [address] [facility] 110 [place] [address] documented as of this encounter Visit Diagnoses Not on filedocumented in this encounter Additional Health Concerns Assessment Noted Time PHQ-9 Depression Total Score: 12 05/24/ 023 3:58 PM EDT documented as of this encounter Care Teams Orthopedics Nurse Relationship Specialty Start Date End Date Favian Wyatt MD [address] [facility] 110 [place] [address] PCP - General Family Medicine 04/22/23 Favian Wyatt MD [address] [facility] 110 [place] [address] PCP - Devoted 11/07/23 11/06/24 Tiana Earl, RN [address] [place] [address] Clinical Advocate Family Medicine 12/14/24 01/25/25 Keyla Fabian LPN [address] [facility] 110 [place] [address] 01/25/25 documented as of this encounter
--- OUTSIDE RECORDS SUMMARY | 2025-05-11 21:33 | XMS_ITS | Encounter Summary ---
Author Organization [facility] Address [address] [place] [address] Care Team Providers Care Verifying Machine Operator Name Role Phone Favian Wyatt MD Primary Care Provider [phone] Favian Wyatt MD Unavailable Tiana Earl RN Unavailable Keyla Fabina LPN Unavailable Encounter Details Date Type Department Care Team (Late st Contact Info) Description 07/20/2024 Abstract [facility] [address] [facility] 110 [place] [address] Favian Wyatt MD [address] [facility] 110 [place], [place] [phone] Social History Tobacco Use Types Packs/Day Years [...] Recorded Patient Health Questionnaire-2 Score 0 06/27/2024 [facility] of Occupat ional Health - Occupational Stress [...] any time in the past 12 m [facility], were you homeless or living in [...] 08/05/2025 3:30 PM EDT Office Visit [facility] [address] [facility] [place] 110 [place] [address] Favian Wyatt MD [address] [facility] 110 [place] [address] documented as of this encounter Visit Diagnoses Not on filedocumented in this encounter Additional Health Concerns Assessment Noted Time PHQ-9 Depression Total Score: 0 06/27/20 24 2:00 PM EDT documented as of this encounter Care Teams Verifying Machine Operator Relationship Specialty Start Date End Date Favian Wyatt MD [address] [facility] 110 [place] [address] PCP - General Family Medicine 04/22/23 Favian Wyatt MD [address] [facility] 110 [place] [address] PCP - Devoted 11/07/23 11/06/24 Tiana Earl RN [address] [place], [place] [phone] Clinical Advocate Family Medicine 12/14/24 01/25/25 Keyla Fabian LPN 112 [facility] 110 [place] [address] 01/25/25 documented as of this encounter
--- OUTSIDE RECORDS SUMMARY | 2025-05-11 21:33 | XMS_ITS | Encounter Summary ---
Author Organization [facility] Address [address] [place] [address] Care Team Providers Care Air Defense Artillery Senior Sergeant Name Role Phone Favian Wyatt MD Primary Care Provider [phone] Favian Wyatt MD Unavailable Tiana Earl RN Unavailable Keyla Fabian LPN Unavailable Encounter Details Date Type Department Care Team (Late st Contact Info) Description 08/29/2024 Abstract [facility] [address] [facility] 110 [place] [address] Favian Wyatt MD [address] [place] [facility] 110 [place], [place] [phone] Social History Tobacco Use Types Packs/Day Years [...] and Family Not on file 05/17/2024 Attends Yazdanism Services Not on file 05/17 Active Member [...] Recorded Patient Health Questionnaire-2 Score 0 06/27/2024 [facility] of Occupat ional Health - [...] any time in the past 12 m [facility], were you homeless or living in a usp (including now)? No 05/17/2024 Comments Unknown Sex [...] 08/05/2025 3:30 PM EDT Office Visit [facility] [address] [facility] 110 [place] [address] Favian Wyatt MD [address] [facility] 110 [place] [address] documented as of this encounter Visit Diagnoses Not on filedocumented in this encounter Additional Health Concerns Assessment Noted Time PHQ-9 Depression Total Score: 0 06/27/20 24 2:00 PM EDT documented as of this encounter Care Teams Air Defense Artillery Senior Sergeant Relationship Specialty Start Date End Date Favian Wyatt MD [address] [facility] 110 [place] [address] PCP - General Family Medicine 04/22/23 Favian Wyatt MD [address] [facility] 110 [place] [address] PCP - Devoted 11/07/23 11/06/24 Tiana Earl RN [address] [place], [place] [id number] Clinical Advocate Family Medicine 12/14/24 01/25/25 Keyla Fabian LPN 112 [facility] 110 [place] [address] 01/25/25 documented as of this encounter
[2025-05-11 22:13] LABS: Hematocrit 44.3 % (36.0-48.0); Hemoglobin 14.8 g/dL (12.0-16.0); Immature Granulocytes Abs Auto 0.04 10^3/uL (0.00-0.03); Immature Granulocytes Pct Auto 0.4 % (0.0-0.5); Lymphocytes Absolute Auto 2.8 10^3/uL (1.2-3.8); Mean Corpuscular HGB Conc 33.4 g/dL (29.9-35.2); Mean Corpuscular Hemoglobin 30.2 pg (26.7-34.0); Mean Corpuscular Volume 90.4 fL (81.0-99.0); Platelet Count 340 10^3/uL (150-450); Red Blood Count 4.90 10^6/uL (4.20-5.40); White Blood Count 9.7 10^3/uL (4.0-11.0)
[2025-05-11] MEDS: CLONIDINE HCL 0.1 MG TABLET PO ×2 (22:13→23:11)
[2025-05-11 22:31] LABS: Anion Gap 14.7; Blood Urea Nitrogen 22.0 mg/dL (7.0-18.0); Calcium 8.6 mg/dL (8.5-10.1); Carbon Dioxide 27.7 mmol/L (21.0-32.0); Chloride 103 mmol/L (98-107); Estimated GFR (African America >60 (>=60 mL/min/1.73m^2); Estimated GFR (Non-African Ame 55 (>=60 mL/min/1.73m^2); Glucose 129 mg/dL (74-106); Potassium 3.4 mmol/L (3.5-5.1); Sodium 142 mmol/L (136-145)
[2025-05-11] MEDS: KETOROLAC TROMETHAMINE 30 MG/ML VIAL IVP (23:43)
[2025-05-12] VITALS: PULSE 57
[2025-05-12 00:13] VITALS: BP 148/87; PULSE 59
[2025-05-12 00:15] VITALS: PULSE 59; O2SAT 93
--- NOTE | 2025-05-12 00:18 | ED.GENADUL1 ---
HPI HPI - General Adult General Chief complaint: Recheck/Abnormal Lab/Rx Stated complaint: HYPERTENSION Time Seen by Provider: 05/11/25 21:44 Source: patient Mode of arrival: walk-in History of Present Illness HPI narrative: presents complaining of Hypertension. Takes losartan and metoprolol and states BP is usually controlled. Headache yesterday and again today. BP elevated tonight. No chest pain or dyspnea. No associated nausea, dizziness Related Data Home Medications �Medication �Instructions �Recorded �Confirmed atenolol 50 mg tablet 50 mg PO Q24H 05/11/25 05/11/25 atorvastatin 20 mg tablet 20 mg PO DAILY 05/11/25 05/11/25 dapagliflozin propanediol 5 mg 5 mg PO DAILY 05/11/25 05/11/25 tablet (Farxiga) gabapentin 300 mg capsule 300 mg PO Q8H 05/11/25 05/11/25 lamotrigine 150 mg tablet 150 mg PO DAILY 05/11/25 05/11/25 losartan 100 mg tablet 100 mg PO DAILY 05/11/25 05/11/25 metformin 500 mg tablet 500 mg PO DAILY 05/11/25 05/11/25 thyroid (pork) 90 mg tablet 90 mg PO DAILY 05/11/25 05/11/25 (Rockwell Thyroid) trazodone 50 mg tablet 100 mg PO HS 05/11/25 05/11/25 valbenazine 80 mg capsule 80 mg PO DAILY 05/11/25 05/11/25 (Ingrezza) venlafaxine 150 mg 300 mg PO DAILY 05/11/25 05/11/25 capsule,extended release 24 hr Allergies Allergy/AdvReac Type Severity Reaction Status Date / Time No Known Drug Allergies Allergy Verified 05/11/25 21:32 Opioid HPI Opioid Management Most Recent Opioid Data: Last Pain Scale 7 05/11/25, 23:43 Last MAR Pain Assessment 05/11/25, 23:43 Review of Systems ROS Status of ROS 10 or more systems reviewed and unremarkable except as noted in history and below PFSH PFSH Social History Little interest or pleasure in doing things: not at all Feeling down, depressed, or hopeless: not at all Exam Constitutional Vital Signs, click to edit/add: Last Vital Signs Temp 98.9 F 05/11/25 21:28 Pulse 59 L 05/12/25 00:15 Resp 15 05/12/25 00:15 BP 148/87 H 05/12/25 00:13 Pulse Ox 93 L 05/12/25 00:15 O2 Del Method Room Air 05/11/25 21:28 Common normals: no apparent distress, average body habitus, oriented x3, no limitations, healthy appearing, alert and well nourished [facility] Common normals: normocephalic and head/scalp atraumatic Eye Common normals: PERRL and EOMs intact bilaterally Respiratory Common normals: normal respiratory effort, no retractions, no use of accessory muscles and clear to auscultation bilaterally Cardio Common normals: regular rate, regular rhythm, S1 normal heart sound and S2 normal heart sound GI Common normals: Normal to inspection, nondistended, normoactive bowel sounds present, soft to palpation and non-tender Extremity Common normals: normal to inspection and full ROM Neuro Common normals: oriented x3, CN's II-XII intact bilaterally, moves all extremities and no focal motor deficits Psych Appearance: grossly normal Course Vital Signs Vital signs: Vital Signs Temperature 98.9 F 05/11/25 21:28 Pulse Rate 64 05/11/25 21:28 Respiratory Rate 20 05/11/25 21:28 Blood Pressure 156/100 H 05/11/25 21:28 Pulse Oximetry 95 05/11/25 21:28 Oxygen Delivery Method Room Air 05/11/25 21:28 Temperature 98.9 F 05/11/25 21:28 Pulse Rate 59 L 05/12/25 00:15 Respiratory Rate 15 05/12/25 00:15 Blood Pressure 148/87 H 05/12/25 00:13 Pulse Oximetry 93 L 05/12/25 00:15 Oxygen Delivery Method Room Air 05/11/25 21:28 Medical Decision Making MDM Narrative Medical decision making narrative: presents with elevated BP with associated headache. BP decreased from 196 systolic to 148 systolic after treatment in the department. With improved BP still had a headache. MELLO treated with toradol and it resolved. Patient is feeling better. Labs WNL and no acute findings on the cxray per my preliminary review. Discharged home in improved condition Lab Data Labs: Lab Results 05/11/25 Range/Units 22:06 WBC 9.7 (4.0-11.0) 10^3/uL RBC 4.90 (4.20-5.40) 10^6/uL Hgb 14.8 (12.0-16.0) g/dL Hct 44.3 (36.0-48.0) % MCV 90.4 (81.0-99.0) fL MCH 30.2 (26.7-34.0) pg MCHC 33.4 (29.9-35.2) g/dL RDW 13.1 (11.0-15.0) % Plt Count 340 (150-450) 10^3/uL MPV 9.8 (9.5-13.5) fL Neut % (Auto) 59.7 (43.0-75.0) % Lymph % (Auto) 28.5 (20.5-60.0) % [place] % (Auto) 8.3 (1.7-12.0) % Eos % (Auto) 2.5 (0.9-7.0) % Baso % (Auto) 0.6 (0.2-2.0) % Neut # (Auto) 5.8 (1.4-6.5) 10^3/uL Lymph # (Auto) 2.8 (1.2-3.8) 10^3/uL [place] # (Auto) 0.8 (0.3-0.8) 10^3/uL Eos # (Auto) 0.2 (0.0-0.7) 10^3/uL Baso # (Auto) 0.1 (0.0-0.1) 10^3/uL Abs Immat Gran (auto) 0.04 H (0.00-0.03) 10^3/uL Imm/Tot Granulo (auto) 0.4 (0.0-0.5) % Sodium 142 (136-145) mmol/L Potassium 3.4 L (3.5-5.1) mmol/L Chloride 103 (98-107) mmol/L Carbon Dioxide 27.7 (21.0-32.0) mmol/L Anion Gap 14.7 BUN 22.0 H (7.0-18.0) mg/dL Creatinine 1.00 (0.55-1.02) mg/dL Est GFR ( Amer) >60 (>=60 mL/min/1.73m^2) Est GFR (Non-Af Amer) 55 L (>=60 mL/min/1.73m^2) BUN/Creatinine Ratio 22.0 Glucose 129 H (74-106) mg/dL Calcium 8.6 (8.5-10.1) mg/dL Troponin I High Sens 8.4 (4.0-51.3) pg/mL Discharge Plan Discharge Chief Complaint: Recheck/Abnormal Lab/Rx Clinical Impression: Headache, Hypertension Patient Disposition: Home, Self-Care Prescriptions / Home Meds: No Action atorvastatin 20 mg tablet 20 mg PO DAILY venlafaxine 150 mg capsule,extended release 24hr 300 mg PO DAILY Rx Instructions: AM dapagliflozin propanediol [Farxiga] 5 mg tablet 5 mg PO DAILY lamotrigine 150 mg tablet 150 mg PO DAILY Rx Instructions: AM metformin 500 mg tablet 500 mg PO DAILY Rx Instructions: AM with breakfast losartan 100 mg tablet 100 mg PO DAILY gabapentin 300 mg capsule 300 mg PO Q8H thyroid (pork) [Rockwell Thyroid] 90 mg tablet 90 mg PO DAILY Rx Instructions: except for Sat. and Sun. take 1/2 tablet trazodone 50 mg tablet 100 mg PO HS Ingrezza 80 mg capsule 80 mg PO DAILY atenolol 50 mg tablet 50 mg PO Q24H Print Language: Tunisian Instructions: Acute Headache (ED), Hypertension (ED) Additional Instructions: follow up with your doctor Tuesday to recheck blood pressure. Referrals: PRESTON RIGGINS [Primary Care Provider, Family Practice] - 1 week
== END 2025-05-12 00:23 | disposition home or self-care (01) ==
PROVIDERS: Emergency Provider Internal Medicine; PCP Family Medicine
DX: I10 Essential (primary) hypertension (principal); R51.9 Headache, unspecified; Z79.899 Other long term (current) drug therapy
CPT/HCPCS: 36415; 71045; 80048; 84484; 85025; 93005; 96374; 99285; J1885

== ENCOUNTER 2025-06-13 15:16 | Outpatient (OUT) | payer MEDICARE, SELFPAY ==
--- OUTSIDE RECORDS SUMMARY | 2025-06-13 15:21 | XMS_ITS | Patient Health Record ---
Author Organization [facility] es Address [address] [facility] [address] Care Team Providers Care Director Employment Name Role Phone xxNoel Perry Primary Care Provider [phone] Reason For Referral No Information Immunizations Vaccine Route Administration Date Status Comme nts MODERNA IM Intramuscular 09/03/2021 Administered MODERNA IM Intramuscular 10/05/2021 Administered Plan Of Treatment No Information Insurance Providers Payer Name Payer Address Payer Phone Subscriber Number Group Number Insured Name Patient Relationship to Insured Coverage Start Date Coverage End Date ANTHEM Primary [address] [place] [phone] [id number] [place] DONOVAN Self - patient is the insured
--- OUTSIDE RECORDS SUMMARY | 2025-06-13 15:21 | XMS_ITS | Encounter Summary ---
Author Organization [facility] Address [address] [place] [address] Care Team Providers Care Data Warehousing Engineer Name Role Phone aFvian Wyatt MD Primary Care Provider [phone] Keyla Fabian LPN Unavailable Favian Wyatt MD Unavailable Encounter Details Date Type Department Care Team (Late st Contact Info) Description 05/14/2025 Abstract [facility] POPULATION [facility] [address] [place] [phone] Keyla Fabian LPN [address] [facility] 110 [place] [address] Social History Tobacco Use Types Packs/Day Years [...] and Family Not on file 05/17/2024 Attends Anabaptism Services Not on file 05/17 Active Member [...] Date Recorded Patient Health Questionnaire-2 Score 0 05/14/2025 [facility] - Occupational Stress Questionnaire Answer Date [...] any time in the past 12 m [facility], were you homeless or living in a [...] on file documented as of this encounter Functional Status * Over the past 2 weeks, how often have you been bothered by any of the following problems? Question Answer Date of Assessment Author Little interest or pleasure in doing things Not at all 05/14/2025 4:22 PM EDT Mary Lou Alarcon LP N Feeling down, depressed, or hopeless Not at all 05/14/2025 4:22 PM EDT Mary Lou Alarcon LP N Patient Health Questionnaire -2 Score 0 05/14/2025 4:22 PM EDT Mary Lou Alarcon LP N documented as of this encounter Plan of Treatment Upcoming Encounters Date Type Department Care Team (Late st Contact Info) Description 08/05/2025 3:30 PM EDT Office Visit [facility] [place] [facility] [address] [facility] 110 [place] [address] Favian Wyatt MD [address] [facility] 110 [place] [address] documented as of this encounter Visit Diagnoses Not on filedocumented in this encounter Additional Health Concerns Assessment Noted Time PHQ-9 Depression Total Score: 0 06/27/20 24 2:00 PM EDT documented as of this encounter Care Teams Data Warehousing Engineer Relationship Specialty Start Date End Date Favian Wyatt MD [address] [facility] 110 [place] [address] PCP - General Family Medicine 04/22/23 Favian Wyatt MD [address] [facility] 110 [place], [place] [address] PCP - Medical [facility] 11/07/2411/06 Keyla Fabian LPN 112 [facility] 110 [place] [address] 01/25/25 documented as of this encounter
--- OUTSIDE RECORDS SUMMARY | 2025-06-13 15:21 | XMS_ITS | Encounter Summary ---
Author Organization [facility] Address [address] [place] [address] Care Team Providers Care Counseling Case Manager Name Role Phone Jake Lopez Primary Care Provider [phone] Favian Wyatt MD Primary Care Provider [phone] Gena Steward MD Unavailable + [phone] Source Comments In the event this information is protected by the Federal Confidentiality of Alcohol and Drug AbusePatient Records regulations: The Federal rules restrict any use of the information to criminally investigate or prosecute any alcohol or drug abuse patient.[facility] Encounter Details Date Type Department Care Team [...] on filedocumented in this encounter Care Teams Counseling Case Manager Relationship Specialty Start Date End Date Jake Lopez [address] [facility] [address] [place] [address] PCP - General 10/24/03 06/21/18 Favian Wyatt MD [address] [facility] [address] [place], [place] [address] PCP - General Family Medicine 06/22/18 Gena Steward MD [address] [facility] [address] [place] [address] Referring Ent - Otolaryngology 11/17/23 documented as of this encounter
--- OUTSIDE RECORDS SUMMARY | 2025-06-13 15:21 | XMS_ITS | Clinical Summary ---
Author Organization [facility] Address [address] [place] [address] Phone Care Team Providers Care Framing Machine Tender Name Role Phone Favian Wyatt MD Primary Care Provider [phone] Allergies Active Allergy Reactions Criticality Noted Date [...] Annual Wellness Visit (AWV) 1955 Sigmoidoscopy 1955 MMR Vaccines (1 of 1 - Standard series) 02/14/1957 Diabetes Screening 02/14/1974 Hepatitis C Screening 02/14/1974 FIT 08/31/2019 08/31/2018 Mammogram 07/24/2022 07/24/2021, 04/07, 04/22/2020 DTaP/Tdap/Td Vaccines (2 - Td or Tdap) 09/25/2022 09/25/2012 Bone Density Scan 06/11/2023 06/11/2021 COVID-19 Vaccine ( - season) 2024 04/14/2022, 10/05/2021, 09/03/2021 Colonoscopy 04/04/2025 04/04/2015 Influenza Vaccine (#1) 2025 , 08/24/2022, 10/26/2021, Additional history exists Colorectal Cancer Screening 05/31/2026 FIT-DNA (Cologuard) 05/31/2026 05/31/2023 RSV High Risk: (Elderly (60+) or Population) (1 - 1-dose 75+ series) 02/14/2031 Zoster Vaccines Completed 03/11/2022, 11/06/2021 Pneumococcal Vaccine Completed 10/27/2023, 09/26/2018, 09/08/2017 HIB Vaccines Aged Out No longer eligi ble based on patient's age to complete this topic HPV Vaccines Aged Out No longer eligi ble based on patient's age to complete this topic Hepatitis A Vaccines Aged Out No long [...] patient's age to complete this topic Insurance Beezag Beezag Beezag Care Teams Framing Machine Tender Relationship Specialty Start Date End Date Favian Wyatt MD [address] [place] [address] [address] PCP - General Family Medicine 08/16/24
--- OUTSIDE RECORDS SUMMARY | 2025-06-13 15:21 | XMS_ITS | Encounter Summary ---
Author Organization [facility] Address [address] [place] [address] Care Team Providers Care Boat Outboard Engine Mechanic Name Role Phone Favian Wyatt MD Primary Care Provider [phone] Gena Steward MD Unavailable + [phone] Source Comments In the event this information is protected by the Federal Confidentiality of Alcohol and Drug AbusePatient Records regulations: The Federal rules restrict any use of the information to criminally investigate or prosecute any alcohol or drug abuse patient.[facility] Encounter Details Date Type Department Care Team (Late st Contact Info) Description 12/13/2023 Patient Msg Otolaryngology [address] [id number] Ulices Wells MD [address] [place] [address] Social History Tobacco Use Types [...] on filedocumented in this encounter Care Teams Boat Outboard Engine Mechanic Relationship Specialty Start Date End Date Favian Wyatt MD [address] [facility] 110 [place], [place] [id number] PCP - General Family Medicine 06/22/18 Gena Steward MD 112 [facility] 130 [place] [address] Referring Ent - Otolaryngology 11/17/23 documented as of this encounter
--- OUTSIDE RECORDS SUMMARY | 2025-06-13 15:21 | XMS_ITS | Encounter Summary ---
Author Organization [facility] Address [address] [place] [address] Care Team Providers Care Marine Engine Driver Name Role Phone Favian Wyatt MD Primary Care Provider [phone] Keyla Fabian LPN Unavailable Favian Wyatt MD Unavailable Encounter Details Date Type Department Care Team (Late st Contact Info) Description 02/25/2025 Abstract [facility] [place] [facility] [address] [facility] 110 [place] [address] Favian Wyatt MD [address] [facility] 110 [place] [address] Social History Tobacco Use Types Packs/Day Years [...] and Family Not on file 05/17/2024 Attends Yazidi Services Not on file 05/17 Active Member [...] Recorded Patient Health Questionnaire-2 Score 0 01/31/2025 [facility] - Occupational [...] any time in the past 12 m [facility], were you homeless or living in a fci (including now)? No 05/17/2024 Comments Unknown Sex [...] 08/05/2025 3:30 PM EDT Office Visit [facility] [place] [facility] [address] [facility] 110 [place] [phone] Favian Wyatt MD [address] [place] [address] [place] [address] documented as of this encounter Visit Diagnoses Not on filedocumented in this encounter Additional Health Concerns Assessment Noted Time PHQ-9 Depression Total Score: 0 06/27/20 24 2:00 PM EDT documented as of this encounter Care Teams Marine Engine Driver Relationship Specialty Start Date End Date Favian Wyatt MD [address] [place] [address] [place] [address] PCP - General Family Medicine 04/22/23 Favian Wyatt MD [address] [place] [address] [place] [address] PCP - Medical [place] 11/07/2411/06 Keyla Fabian LPN [address] [place] [address] [place] [address] 01/25/25 documented as of this encounter
--- OUTSIDE RECORDS SUMMARY | 2025-06-13 15:21 | XMS_ITS | Encounter Summary ---
Author Organization [facility] Address [address] [place] [address] Care Team Providers Care Machine Clothing Man Name Role Phone Favian Wyatt MD Primary Care Provider [phone] Tiana Earl RN Unavailable [phone] Keyla Fabian BUDGET MANAGER Unavailable Favian Wyatt MD Unavailable Encounter Details Date Type Department Care Team (Late st Contact Info) Description 11/30/2024 Abstract [facility] [place] [facility] 112 [facility] 110 [place] [address] Favian Wyatt MD 112 [facility] 110 [place] [address] Social History Tobacco Use Types Packs/Day Years [...] and Family Not on file 05/17/2024 Attends Episcopal Services Not on file 05/17 Active Member [...] Recorded Patient Health Questionnaire-2 Score 0 06/27/2024 [facility] - [...] any time in the past 12 m [facility], were you homeless or living [...] Visit [facility] [place] [facility] [address] [address] Favian Wyatt MD [address] [facility] 110 [place] [address] documented as of this encounter Visit Diagnoses Not on filedocumented in this encounter Additional Health Concerns Assessment Noted Time PHQ-9 Depression Total Score: 0 06/27/20 24 2:00 PM EDT documented as of this encounter Care Teams Machine Clothing Man Relationship Specialty Start Date End Date Favian Wyatt MD [address] [facility] 110 [place] [address] PCP - General Family Medicine 04/22/23 Favian Wyatt MD [address] [facility] 110 [place] [address] PCP - Medical [place] EMILY 11/07/2411/06 Tiana Earl, CHUY [address] [place], [place] [phone] Clinical Advocate Family Medicine 12/14/24 01/25/25 Keyla Fabian LPN 112 [place] [address] 01/25/25 documented as of this encounter
--- OUTSIDE RECORDS SUMMARY | 2025-06-13 15:21 | XMS_ITS | Encounter Summary ---
Author Organization [facility] Address [address] [place] [address] Phone Care Team Providers Care Manager Testing Name Role Phone Favian Wyatt MD Primary Care Provider [phone] Reason for Referral * Cardiovascular (Routine) - Authorized Specialty Diagnoses / Procedures Referred By Contac t Referred To Contact Diagnoses Other tear of medial meniscus, current injury, left knee, initial encounter Procedures ECG 12 Lead Malcolm Cronin MD [address] [facility], [address] [place] [address] Phone: tel: fax: Referral ID Status Reason Start Date Expiration Date V isits Requested Visits Authorized [id number] Authorized 10/12/2024 10/12/2025 1 1 Encounter Details Date Type Department Care Team (Late st Contact Info) Description 10/12/2024 Transcribe Orders [facility] [address] [place] [address] Malcolm Cronin MD [address] [facility], [address] [place] [phone] Other tear of medial meniscus, current injury, [...] profile documented in this encounter Care Teams Manager Testing Relationship Specialty Start Date End Date Favian Wyatt MD [address] [place] [address] PCP - General Family Medicine 08/16/24 documented as of this encounter
--- OUTSIDE RECORDS SUMMARY | 2025-06-13 15:21 | XMS_ITS | Encounter Summary ---
Author Organization [facility] Address [address] [place] [address] Phone Care Team Providers Care Customer Service Advocate Name Role Phone Favian Wyatt MD Primary Care Provider [phone] Encounter Details Date Type Department Care Team ([facility] st Contact Info) Description 11/06/2024 [facility] [address] [address] [facility] PhysicianMD [address] [place], [place] [phone] Social History Tobacco Use Types Packs/Day Years [...] on filedocumented in this encounter Care Teams Customer Service Advocate Relationship Specialty Start Date End Date Favian Wyatt MD [address] [facility] 110 [place] [address] PCP - General Family Medicine 08/16/24 documented as of this encounter
--- OUTSIDE RECORDS SUMMARY | 2025-06-13 15:21 | XMS_ITS | Encounter Summary ---
Author Organization [facility] Address [address] [place] [address] Care Team Providers Care Asphalt Tar And Gravel Roofer Name Role Phone Favian Wyatt MD Primary Care Provider [phone] Keyla Fabian LPN Unavailable Favian Wyatt MD Unavailable Encounter Details Date Type Department Care Team (Late st Contact Info) Description 05/16/2025 Abstract [facility] [place] [facility] [address] [facility] 110 [place] [address] Favian Wyatt MD [address] [facility] 110 [place] [address] Social History Tobacco Use Types Packs/Day Years [...] and Family Not on file 05/17/2024 Attends Confucianism Services Not on file 05/17 Active Member [...] Recorded Patient Health Questionnaire-2 Score 0 05/14/2025 [facility] - Occupational [...] any time in the past 12 m [facility], were you homeless or living [...] Visit [facility] [place] [facility] [address] [facility] 110 [place] [address] Favian Wyatt MD [address] [place] [address] [place] [address] documented as of this encounter Visit Diagnoses Not on filedocumented in this encounter Additional Health Concerns Assessment Noted Time PHQ-9 Depression Total Score: 0 06/27/20 24 2:00 PM EDT documented as of this encounter Care Teams Asphalt Tar And Gravel Roofer Relationship Specialty Start Date End Date Favian Wyatt MD [address] [place] [address] [place] [address] PCP - General Family Medicine 04/22/23 Favian Wyatt MD [address] [place] [address] [place] [address] PCP - Medical [place] 11/07/2411/06 Keyla Fabian LPN [address] [place] [address] [place] [address] 01/25/25 documented as of this encounter
--- OUTSIDE RECORDS SUMMARY | 2025-06-13 15:21 | XMS_ITS | Clinical Summary ---
Author Organization [facility] Address [address] [place] [address] Care Team Providers Care Table Games Dealer Name Role Phone Favian Riggins MD Primary Care Provider [phone] Keyla Fabian LPN Unavailable Favian Riggins MD Unavailable Allergies Active Allergy Reactions Criticality Noted [...] atorvastatin (Lipitor) 20 MG tabletIndications :Pure hypercholesterole daniella, unspecified TAKE 1 TABLET BY MOUTH DAILY 100 tablet 3 4 Active losartan (Cozaar) 100 MG tabletIndications :Essential (primary) hypertension TAKE 1 TABLET BY MOUTH DAILY 100 tablet 3 4 Active atenolol (Tenormin) 50 MG tabletIndications :Palpitations TAKE 1 TABLET BY MOUTH IN THE MORNING 100 tablet 3 5 Active thyroid (Davis Thyroid) 90 MG tabletIndications :Hypothyroidism, unspecified Take 1 tablet (90 mg) by mouth Daily 5 02/01/20 26 Active dapagliflozin (Farxiga) 5 MGIndications:IGT (impaired glucose tolerance) Take 1 tablet (5 mg) by mouth Daily 100 tablet 3 5 Active gabapentin (Neurontin) 300 MG capsule Take 300 mg by mouth in the morning and 300 mg at noon and 300 mg in the evening. 5 Active cloNIDine (Catapres) 0.1 MG tabletIndications :Essential hypertension Take 1 tablet (0.1 mg) by mouth in the morning and 1 tablet (0.1 mg) before bedtime. 60 tablet 5 5 11/10/19 26 Active Active Problems Problem Noted Date Diagnosed [...] & Plan (05/08/2024 3:15 PM EDT): On [place] a few years Sees Dr.Travis Rasmussen of [...] Diagnosed Date Resolved Date Tinnitus, subjective 04/16/2023 023 Encounters Date Type Department Care Team Description 05/16/2025 Abstract [facility] [place] [facility] [address] [facility] 110 [place] [address] Favian Riggins MD 05/14/2025 4:30 PM EDT Office Visit [facility] [place] [facility] [address] [facility] 110 [place] [address] Mattie Lim, CHANA Essential hypertension (Primary Dx); Hypokalemia; Chronic kidney disease, stage 3a ([facility]); Encounter for screening mammogram for malignant neoplasm of breast 05/14/2025 Travel 05/14/2025 Patient Outreach [facility] [address] [place] [address] Keyla Fabian LPN 05/14/2025 Abstract [facility] [place] [facility] [address] [facility] 110 [place] [address] Favian Riggins MD 05/14/2025 Patient Outreach [facility] [address] [place] [address] Keyla Fabian LPN 05/14/2025 Abstract [facility] [address] [place] [address] Keyla Fabian LPN 04/11/2025 Orders Only [facility] [place] [facility] [address] [facility] 110 [place] [address] Mary Lou Alarcon LPN Estrogen deficiency; Encounter for screening mammogram for malignant neoplasm of breast from Last 3 Months Immunizations Immunization Administration [...] Bipolar disorder Granddaughter Diabetes Maternal Grandmother Lady Gilbert Cancer Mother Isabel Reyes Diabetes Mother Isabel Reyes Relation Name Status Comments Daughter Alive Father Granddaughter Alive Maternal Grandmother Laddaniela Gilbert Mother Isabel Reyes Son Alive x2 Social [...] and Family Not on file 05/17/2024 Attends Voodoo Services Not on file 05/17 Active Member [...] Recorded Patient Health Questionnaire-2 Score 0 05/14/2025 [facility] - [facility] Stress Questionnaire Answer Date [...] any time in the past 12 m [facility], were you homeless or living in a [...] Sign Reading Time Taken Comments Blood Pressure 156/84 05/14/2025 4:31 PM EDT Pulse 58 05/14/2025 4:31 PM EDT Temperature - - Respiratory Rate 16 05/14/2025 4:31 PM EDT Oxygen Saturation 94% 05/14/2025 4:31 PM EDT Inhaled Oxygen Concentration - - Weight 80.9 kg (178 lb 6.4 oz) 05/14/2025 4:31 P M EDT Height 154.9 cm (5' 1 ) 05/14/2025 4:31 PM EDT Body Mass Index 33.71 05/14/2025 4:31 PM EDT Plan of Treatment Upcoming Encounters Date Type Department Care Team (Late st Contact Info) Description 08/05/2025 3:30 PM EDT Office Visit [facility] [place] [facility] 112 [facility] 110 [place] [address] Favian Riggins MD 112 [facility] 110 [place] [address] Health Maintenance Due Date Last Done Comments [...] Procedure Name Priority Date/Time Associated Diagnosis Comments MICROALBUMIN / CREATININE URINE RATIO Routine 01/31/2025 3:28 PM EDT Abnormal glucose tolerance test Type 2 diabetes mellitus with stage 3a chronic kidney disease, without long-term current use of insulin ([facility]) Medicare annual wellness visit, subsequent HEMOGLOBIN A1C Routine 01/29/2025 2:53 PM EDT Abnormal glucose tolerance test Type 2 diabetes mellitus with stage 3a chronic kidney disease, without long-term current use of insulin ([facility]) Medicare annual wellness visit, subsequent MM TOMOSYNTHESIS SCREENING BI 07/13/2024 2:39 PM EDT DIABETIC RETINOPATHY SCREENING - OU - BOTH EYES Routine 06/27/2024 LAB COLOGUARD COLON CANCER SCREEN Routine 06/09/2023 8:55 AM EDT COLONOSCOPY Routine 04/04/2015 12:00 PM EDT from Last 3 Months or Most Recently Relevant to Health Maintenance Results * (ABNORMAL) Microalbumin / creatinine urine ratio [...] 02/01/2025 12:04 PM EDT SPLIT 01/29/2025 FROM [id number] Resulting Agency Comment Performing Organization Information Site ID: QPT Name: [facility] Address: [address] [place] [phone] Director: Chris Aparicio MD Favian Riggins MD [...] Performing Organization Information Site ID: QPT Name: [facility] Address: [address] [facility], 4 [place] [address] Director: Chris Aparicio MD Favian Riggins MD LAB BLOOD ORDERABLES Final Resul t QUEST * MM TOMOSYNTHESIS SCREENING BI (07/13/2024 2:39 PM EDT) Anatomical Region Laterality Modality Other 07/13/2024 2:39 PM EDT Narrative 07/13/2024 2:40 [place] [address] Mammography Report Signed Patient: BETTYE MUSE MR#: [id number] : 1955 Acct:[id number] Age/Sex: 69 / F ADM Date: 07/11/24 Loc: MAMMO Attending Dr: MATTIE LIM Ordering Physician: MATTIE LIM Results: Date of Service: 07/11/24 Follow Up: Procedure(s): MM tomosynthesis screening BI Accession Number(s): [id number] cc: FAVIAN RIGGINS KAREN M Patient Name: BETTYE MUSE MR#: [id number] : 1955 Exam Date: 07/11/2024 Ordering Doctor: DR MATTIE ZAYAS RADIOLOGY REPORT PROCEDURE: MM TOMOSYNTHESIS SCREENING BI [...] bone cancer at age 81. LOCATION: The [facility] BREAST COMPOSITION: The breasts are heterogeneously [...] Signed By: 07/13/24 1440 DD/ 1439 TD/TT: Sword Swallower: Procedure Note Radiology, Radiologist, MD - 07/13/2024 [place] [address] Mammography Report Signed Patient: BETTYE MUSE LMR#: [id number] : 1955cct:[id number] Age/Sex: 69 / FADM Date: 07/11/24 Loc: MAMMO Attending Dr: MATTIE LIM Ordering Physician: MATTIE LIM MResults: Date of Service: 07/11/24Follow Up: Procedure(s): MM tomosynthesis screening BI Accession Number(s): [id number] cc: FAVIAN RIGGINS ; MATTIE LIM Patient Name: BETTYE MUSE MR#: [id number] : 1955 Exam Date: 07/11/2024 Ordering Doctor: DR MATTIE LIM PA RADIOLOGY REPORT PROCEDURE: MM TOMOSYNTHESIS [...] bone cancer at age 81. LOCATION: The [facility] BREAST COMPOSITION: The breasts are heterogeneously [...] M.D. Signed By:07/13/24 1440 DD/ 1439 TD/TT: Sword Swallower: Mattie ZAYAS [facility] Final Result * Diabetic Retinopathy Screening - OU - Both Eyes (06/27/2024) RESULTS normal Anatomical Region Laterality Modality Head Other 06/27/2024 us Favian Riggins MD OPHTH PHOTOGRAPHY Final Result * Cologuard?? colon cancer screening (06/09/2023 8:55 AM EDT) Stool us Unknown Practice A LAB MOLECULAR DIAGNOSTICS ORD ERABLES Final Result * Colonoscopy (04/04/2015 12:00 PM EDT) Anatomical Region Laterality Modality Endoscopy 04/04/2015 12:0 0 PM EDT Narrative 04/04/2015 12:00 PM EDT PERFORMED AT [facility] LOCATION:[id number] Refused Procedure Note CONVERSION, GENERIC - 03/24/2023 PERFORMED AT [facility] LOCATION:[id number] Refused Favian Riggins MD ENDOSCOPY PROCEDURE ORDERABLES F inal Result from Last 3 Months or Most Recently Relevant to Health Maintenance Insurance [address] [place] [id number] [employer] MEDICARE Care Teams Table Games Dealer Relationship Specialty Start Date End Date Favian Riggins MD [address] [address] PCP - General Family Medicine 04/22/23 Favian Riggins MD [address] [facility] 110 [place] [address] PCP - Medical [place] 11/07/2411/06 Keyla Fabian LPN [address] [facility] 110 [place] [address] 01/25/25
--- OUTSIDE RECORDS SUMMARY | 2025-06-13 15:21 | XMS_ITS | Encounter Summary ---
Author Organization [facility] Address [address] [facility] [place] [address] Care Team Providers Care Site Supervising Technical Operator Name Role Phone Favian Wyatt MD Unavailable Favian Wyatt MD Primary Care Provider [phone] Favian Wyatt MD Unavailable Tiana Earl RN Unavailable [phone] Keyla Fabian LPN Unavailable Favian Wyatt MD Unavailable Encounter Details Date Type Department Care Team (Late st Contact Info) Description 06/09/2023 Orders Only [facility] [address] [facility] [address] [place] [phone] A, Unknown Practice [address] [place], [place] [address] Social History Tobacco Use Types Packs/Day Years [...] Description 08/05/2025 3:30 PM EDT Office Visit [facility] 112 [facility] 110 [place] [address] Favian Wyatt MD 112 [facility] 110 [place] [address] documented as of this encounter Procedures Procedure Name Priority Date/Time Associated Diagnosis Comments LAB COLOGUARD COLON CANCER SCREEN Routine 06/09/2023 8:55 AM EDT documented in this encounter Results * Cologuard?? colon cancer screening (06/09/2023 8:55 AM EDT) Stool us Unknown Practice A LAB MOLECULAR DIAGNOSTICS ORD ERABLES Final Result documented in this encounter Visit Diagnoses Not on filedocumented in this encounter Additional Health Concerns Assessment Noted Time PHQ-9 Depression Total Score: 12 023 3:58 PM EDT documented as of this encounter Care Teams Site Supervising Technical Operator Relationship Specialty Start Date End Date Favian Wyatt MD 112 [facility] 110 [place] [address] PCP - Kiara DIAZ 11/07/21 11/06/23 Favian Wyatt MD [address] [facility] 110 [place] [address] PCP - General Family Medicine 04/22/23 Favian Wyatt MD [address] [facility] 110 [place] [address] PCP - Devoted 11/07/23 11/06/24 Favian Wyatt MD 112 [facility] 110 [place] [address] PCP - Medical Mikaela DIAZ 11/07/2411/06 Tiana Earl, RN [address] [place], [place] [phone] Clinical Advocate Family Medicine 12/14/24 01/25/25 Keyla Fabian LPN 112 [place] [address] 01/25/25 documented as of this encounter
--- OUTSIDE RECORDS SUMMARY | 2025-06-13 15:21 | XMS_ITS | Encounter Summary ---
Author Organization [facility] Address [address] [place] [address] Care Team Providers Care Supplier Quality Engineer Name Role Phone Favian Wyatt MD Unavailable Favian Wyatt MD Primary Care Provider [phone] Favian Wyatt MD Unavailable Tiana Earl RN Unavailable Keyla Fabian LPN Unavailable Favian Wyatt MD Unavailable Encounter Details Date Type Department Care Team (Late st Contact Info) Description 05/23/2023 Abstract [facility] [place] [facility] 112 [facility] [address] [place] [phone] Mary Lou Alarcon LPN 112 [facility] [address] [place], [place] [address] Social History Tobacco Use Types Packs/Day Years [...] Author Very difficult 05/24/2023 3:58 PM EDT Dorian, Nisreen weaver LPN documented as of this encounter Plan of Treatment Upcoming Encounters Date Type Department Care Team (Late st Contact Info) Description 08/05/2025 3:30 PM EDT Office Visit [facility] [place] [facility] [address] [facility] 110 [place] [address] Favian Wyatt MD [address] [place] [address] [place] [address] documented as of this encounter Visit Diagnoses Not on filedocumented in this encounter Care Teams Supplier Quality Engineer Relationship Specialty Start Date End Date Favian Wyatt MD [address] [place] [address] [place] [address] PCP - [place] 11/07/21 11/06/23 Favian Wyatt MD [address] [place] [address] [place] [address] PCP - General Family Medicine 04/22/23 Favian Wyatt MD [address] [facility] 110 [place] [address] PCP - Devoted 11/07/23 11/06/24 Favian Wyatt MD [address] [facility] [address] [place] [address] PCP - Medical [facility] 11/07/2411/06 Tiana Earl, RN [address] [place] [address] Clinical Advocate Family Medicine 12/14/24 01/25/25 Keyla Fabian LPN [address] [place] [address] [place] [address] 01/25/25 documented as of this encounter
--- OUTSIDE RECORDS SUMMARY | 2025-06-13 15:21 | XMS_ITS | Encounter Summary ---
Author Organization [facility] [place] s tem Address [id number] [address] [place] [address] Care Team Providers Care Security Chief Museum Name Role Phone Favian Wyatt MD Primary Care Provider [phone] Reason for Visit * Reason Onset Date Comments 08/10 Amina 06/27/2024 Encounter Details Date Type Department Care Team (Late st Contact Info) Description 06/27/2024 [facility] [address] [place] [phone] Stacey Yousif 08/10 Amina Social History Tobacco Use Types Packs/Day Years Used Date Smoking Tobacco: Never Assessed Childcare Answer Date Recorded Childcare Unknown 04/09/2019 Employment Answer Date Recorded Employment Unknown 04/09/2019 Purpose - Life Answer Date Recorded Purpose and direction in life Unknown Comments Unknown Sex and Gender Information Value Date Recorded Sex Assigned at Not on file Legal Sex Female 5:18 PM EDT Gender Identity Not on file Sexual Orientation Not on file documented as of this encounter Miscellaneous Notes * Telephone Encounter - Stacey Yousif - 06/27/2024 3:04 PM EDT Patient's appointment needs to be rescheduled at this time due to provider out of clinic. Called and left message Date: 08/10 Provider: Dr Huynh Rescheduling Instructions: next available * Telephone Encounter - Rosa Breaux - 06/27/2024 3:04 PM EDT Please ask the following questions to the new patient that you are schedulin. IS THIS DUE TO AN ACCIDENT? - no 2. IS THIS WORKER'S COMP? PLEASE VERIFY IF THIS IS WORKERS COMP AND DOCUMENT (We do not accept any new workers comp cases) -no 3. WHAT INSURANCE? -Coverage: [employer] Medicare/[employer] Medicare Advantage 4. HAVE YOU EVER BEEN SEEN BY A NEUROLOGIST BEFORE? IF YES, WHO AND WHEN? IS THIS A SECOND OPINION? - no 5. ANY CHANCE OF NOW OR BEFORE YOUR APPOINTMENT? - 6. OFFERED YAS FOR SOONER APPOINTMENT? - no due to dx 7. PATIENT IS SCHEDULED ON/WITH: - NEW PATIENT at 1:30 PM (60 min)Arrive by 1:15 PM Saturday December 14, 2024 Appointment Provider:Erika Huynh MD [facility] 8. WHO WAS CALLED TO RESCHEDULE APPOINTMENT? - Patient documented in this encounter Plan of Treatment Not on file documented as of this encounter Visit Diagnoses Not on filedocumented in this encounter Care Teams Security Chief Museum Relationship Specialty Start Date End [place] [address] PCP - General 06/02/17 documented as of this encounter
--- OUTSIDE RECORDS SUMMARY | 2025-06-13 15:21 | XMS_ITS | Encounter Summary ---
Author Organization [facility] Address [address] [place] [address] Care Team Providers Care Supervisor Pressing Department Name Role Phone Favian Wyatt MD Unavailable Favian Wyatt MD Primary Care Provider [phone] Favian Wyatt MD Unavailable Tiana Earl RN Unavailable Keyla Fabian COLLATERAL SPECIALIST Unavailable Favian Wyatt MD Unavailable Encounter Details Date Type Department Care Team (Late st Contact Info) Description 06/01/2023 Abstract [facility] [address] [facility] [facility] 110 [place] [address] Favian Wyatt MD [address] [facility] [address] [place] [address] Social History Tobacco Use Types Packs/Day Years [...] Visit [facility] [place] Shaffer [address] [facility] [address] [place] [address] Favian Wyatt MD [address] [facility] 110 [place] [address] documented as of this encounter Visit Diagnoses Not on filedocumented in this encounter Additional Health Concerns Assessment Noted Time PHQ-9 Depression Total Score: 12 05/24/ 023 3:58 PM EDT documented as of this encounter Care Teams Supervisor Pressing Department Relationship Specialty Start Date End Date Favian Wyatt MD [address] [facility] 110 [place] [address] PCP - [place] 11/07/21 11/06/23 Favian Wyatt MD [address] [facility] 110 [place] [address] PCP - General Family Medicine 04/22/23 Favian Wyatt MD [address] [facility] 110 [place] [address] PCP - Devoted 11/07/23 11/06/24 Fvaian Wyatt MD [address] [facility] [address] [place] [address] PCP - Medical [place] MD 11/07/2411/06 Tiana Earl, CHUY [address] [place] [address] Clinical Advocate Family Medicine 12/14/24 01/25/25 Keyla Fabian LPN [address] [facility] 110 [place] [address] 01/25/25 documented as of this encounter
--- OUTSIDE RECORDS SUMMARY | 2025-06-13 15:21 | XMS_ITS | Encounter Summary ---
Author Organization [facility] Address [address] [place] [address] Care Team Providers Care Adobe Flex Developer Name Role Phone Favian Wyatt MD Primary Care Provider [phone] Keyla Fabian LPN Unavailable Favian Wyatt MD Unavailable Encounter Details Date Type Department Care Team (Late st Contact Info) Description 05/14/2025 Abstract [facility] [place] [facility] [address] [email or web address] 110 [place] [address] Favian Wyatt MD [address] [facility] 110 [place] [address] Social History Tobacco Use Types Packs/Day Years [...] and Family Not on file 05/17/2024 Attends Mandaeism Services Not on file 05/17 Active Member [...] Recorded Patient Health Questionnaire-2 Score 0 05/14/2025 [facility] of Occupat ional Health - Occupational [...] Visit [facility] [place] Shaffer [address] [facility] [[email or web address] 110 [place] [address] Favian Wyatt MD [address] [place] [address] [place] [id number] documented as of this encounter Visit Diagnoses Not on filedocumented in this encounter Additional Health Concerns Assessment Noted Time PHQ-9 Depression Total Score: 0 06/27/20 24 2:00 PM EDT documented as of this encounter Care Teams Adobe Flex Developer Relationship Specialty Start Date End Date Favian Wyatt MD [address] [place] [address] [place] [address] PCP - General Family Medicine 04/22/23 Favian Wyatt MD [address] [facility] 110 [place] [address] PCP - Medical [facility] 11/07/2411/06 Keyla Fabian LPN [address] [facility] 110 [place] [address] 01/25/25 documented as of this encounter
--- OUTSIDE RECORDS SUMMARY | 2025-06-13 15:21 | XMS_ITS | Encounter Summary ---
Author Organization [facility] tem Address [id number] [address] [place] [address] Care Team Providers Care Cone Baker Machine Name Role Phone Favian Wyatt MD Primary Care Provider [phone] Encounter Details Date Type Department Care Team (Late st Contact Info) Description 01/25/2025 Telephone [facility] Neurology, A [facility] [address] [facility] [address], [address] [place] [address] [place]etta Sharma Social History Tobacco [...] had already been approved on the (January). Construction Mgr voiced understanding and thanks. documented in this [...] documented as of this encounter Care Teams Cone Baker Machine Relationship Specialty Start Date End Date Favian Wyatt MD [facility] [place] [address] PCP - General 06/02/17 documented as of this encounter
--- OUTSIDE RECORDS SUMMARY | 2025-06-13 15:21 | XMS_ITS | Clinical Summary ---
Author Organization [facility] Address [address] [place] [address] Care Team Providers Care Pocket Setter Name Role Phone Favian Wyatt MD Primary Care Provider [phone] Gena Steward MD Unavailable [phone] Allergies Active Allergy Reactions Criticality Noted Date [...] Screening 03/09/2008 03/09/2005 Bone Density Screening 02/14/2021 Advance Directive Discussion 11/07/2024 Influenza Vaccine (#1) 2025 RSV Vaccine (1 - 1-dose 75+ series) 02/14/2031 Procedures Procedure Name Priority Date/Time Associated Diagnosis Comments BASIC METABOLIC PANEL 03/09/2005 12:56 PM EDT from Last 3 Months or Most Recently Relevant to Health Maintenance Results * BASIC METABOLIC PNL (03/09/2005 12:56 PM EDT) Glucose 77 65 - 100 mg/dL [facility] BUN 13 8 - 25 mg/dL [facility] Creatinine 0.8 0.7 - 1.4 mg/dL [facility] Sodium 140 132 - 148 mmol/L [facility] Potassium 3.7 3.5 - 5.0 mmol/L [facility] Chloride 103 98 - 110 mmol/L [facility] CO2 26 23 - 32 mmol/L [facility] Anion Gap 11 0 - 15 mmol/L [facility] Calcium 9.2 8.5 - 10.5 mg/dL [facility] 03/09/2005 12:5 6 PM EDT us Ponce Rod MD LABORATORY Final Resul t [facility] [address] [place] [address] from Last 3 Months or Most Recently Relevant to Health Maintenance [facility] Care Teams Pocket Setter Relationship Specialty Start Date End Date Favian Wyatt MD [address] [facility] [address] [place] [address] PCP - General Family Medicine 06/22/18 Gena Steward MD [address] [place] [address] Referring Ent - Otolaryngology 11/17/23
--- OUTSIDE RECORDS SUMMARY | 2025-06-13 15:22 | XMS_ITS | Encounter Summary ---
Author Organization [facility] Address [address] [place] [address] Care Team Providers Care Material Scheduler Name Role Phone Favian Wyatt MD Primary Care Provider [phone] Favian Wyatt MD Unavailable Tiana Earl RN Unavailable Keyla Fabian LPN Unavailable Favian Wyatt MD Unavailable Encounter Details Date Type Department Care Team (Late st Contact Info) Description 08/23/2024 Abstract [facility] [place] [facility] [address] [facility] 110 [place] [phone] Favian Wyatt MD [address] [facility] 110 [place] [address] Social History Tobacco Use Types Packs/Day Years [...] and Family Not on file 05/17/2024 Attends Roman Catholic Services Not on file 05/17 Active Member [...] Recorded Patient Health Questionnaire-2 Score 0 06/27/2024 [facility] of Occupat ional Health - Occupational Stress [...] time in the past 12 m [facility], were you homeless or living in a [...] Visit [facility] [place] [facility] [address] [facility] [address] [place] [address] Favian Wyatt MD [address] [facility] [address] [place] [address] documented as of this encounter Visit Diagnoses Not on filedocumented in this encounter Additional Health Concerns Assessment Noted Time PHQ-9 Depression Total Score: 0 06/27/20 24 2:00 PM EDT documented as of this encounter Care Teams Material Scheduler Relationship Specialty Start Date End Date Favian Wyatt MD [address] [facility] [address] [place] [address] PCP - General Family Medicine 04/22/23 Favian Wyatt MD [address] [place] [address] [place] [address] PCP - Devoted 11/07/23 11/06/24 Favian Wyatt MD 112 [facility] 110 [place] [address] PCP - Medical [place] 11/07/2411/06 Tiana Earl, RN [address] [place] [address] Clinical Advocate Family Medicine 12/14/24 01/25/25 Keyla Fabian LPN [address] [address] 01/25/25 documented as of this encounter
--- OUTSIDE RECORDS SUMMARY | 2025-06-13 15:22 | XMS_ITS | Encounter Summary ---
Author Organization [facility] Address [address] [place] [address] Care Team Providers Care Fire Battalion Chief Name Role Phone Favian Wyatt MD Primary Care Provider [phone] Keyla Fabian LPN Unavailable Favian Wyatt MD Unavailable Encounter Details Date Type Department Care Team (Late st Contact Info) Description 04/11/2025 Orders Only [facility] [place] [facility] [address] [facility] [address] [place] [address] Mary Lou Alarcon LPN [address] [place] [address] Estrogen deficiency; Encounter for screening mammogram for [...] and Family Not on file 05/17/2024 Attends Pentecostal Services Not on file 05/17 Active Member [...] Recorded Patient Health Questionnaire-2 Score 0 01/31/2025 [facility] of Occupat ional Health - Occupational [...] any time in the past 12 m [facility], were you homeless or living in a residential (including now)? No 05/17/2024 Comments Unknown Sex [...] Visit [facility] [place] [facility] [address] [place] [address] [place] [address] Favian Wyatt MD [address] [facility] 110 [place] [address] documented as of this encounter Visit Diagnoses Diagnosis Estrogen deficiency Other ovarian failure Encounter for screening mammogram for malignant neoplasm of breast documented in this encounter Additional Health Concerns Assessment Noted Time PHQ-9 Depression Total Score: 0 06/27/20 24 2:00 PM EDT documented as of this encounter Care Teams Fire Battalion Chief Relationship Specialty Start Date End Date Favian Wyatt MD [address] [facility] [address] [place] [address] PCP - General Family Medicine 04/22/23 Favian Wyatt MD [address] [facility] 110 [place] [address] PCP - Medical [place] MA 11/07/2411/06 Keyla Fabian LPN [address] [facility] 110 [place] [address] 01/25/25 documented as of this encounter
--- OUTSIDE RECORDS SUMMARY | 2025-06-13 15:22 | XMS_ITS | Encounter Summary ---
Author Organization [facility] Address [address] [place] [address] Care Team Providers Care Metal Trades Instructor Name Role Phone Favian Wyatt MD Unavailable Favian Wyatt MD Primary Care Provider [phone] Favian Wyatt MD Unavailable Tiana Earl RN Unavailable Keyla Fabian PEGA DEVELOPER Unavailable Favian Wyatt MD Unavailable Encounter Details Date Type Department Care Team (Late st Contact Info) Description 09/19/2023 Orders Only [facility]OM[facility] Shaffer [address] [facility] 110 [place] [address] Favian Wyatt MD [address] [facility] 110 [place] [address] Social History Tobacco Use Types Packs/Day Years [...] Visit [facility] [place] Shaffer [address] [facility] 110 [place] [address] Favian Wyatt MD [address] [facility] 110 [place] [address] documented as of this encounter Procedures Procedure [...] documented as of this encounter Care Teams Metal Trades Instructor Relationship Specialty Start Date End Date Favian Wyatt MD [address] [facility] [address] [place] [address] PCP - Kiara DIAZ 11/07/21 11/06/23 Favian Wyatt MD [address] [facility] [address] [place] [address] PCP - General Family Medicine 04/22/23 Favian Wyatt MD [address] [facility] [address] [place] [address] PCP - Devoted 11/07/23 11/06/24 Favian Wyatt MD [address] [facility] [address] [place] [address] PCP - Medical [place]aela DIAZ 11/07/2411/06 Tiana Earl, RN [address] [place], [place] [phone] Clinical Advocate Family Medicine 12/14/24 01/25/25 Keyla Fabian LPN 112 [place] [address] 01/25/25 documented as of this encounter
--- OUTSIDE RECORDS SUMMARY | 2025-06-13 15:22 | XMS_ITS | Encounter Summary ---
Author Organization [facility] Address [address] [place] [address] Care Team Providers Care Powderer Name Role Phone Favian Wyatt MD Primary Care Provider [phone] Favian Wyatt MD Unavailable Tiana Earl RN Unavailable [phone] Keyla Fabian LPN Unavailable Favian Wyatt [...] and Family Not on file 05/17/2024 Attends Holiness Services Not on file 05/17 Active Member [...] 0 06/27/2024 [facility] - Occupational Stress Questionnaire Answer Date Recorded [...] any time in the past 12 m [facility], were you homeless or living in a detention (including now)? No 05/17/2024 Comments Unknown Sex [...] 3:30 PM EDT [facility] [address] [facility] 110 [place] [address] Favian Wyatt MD [address] [facility] 110 [place] [address] documented as of this encounter Procedures Procedure Name Priority Date/Time Associated Diagnosis Comments XR KNEE 4+ VIEWS LEFT 08/16/2024 3:37 PM EDT documented in this encounter Results * XR knee 4+ views left (08/16/2024 3:37 PM EDT) Anatomical Region Laterality Modality Lower Extremities, Knee Left Radiogra arh [facility] Imaging 08/16/2024 3:37 PM EDT Narrative 08/17/2024 5:43 PM EDT Interpreted By: Colin Rhodes, STUDY: XR KNEE LEFT 4+ VIEWS; ; 08/16/2024 3:50 pm INDICATION: Signs/Symptoms:pain. ,M25.562 Pain in left knee COMPARISON: None. ACCESSION NUMBER(S): [id number] ORDERING CLINICIAN: GUICHO NGUY[place] FINDINGS: Left knee, four views There is no fracture. There is no dislocation. Mild osteophytosis in the medial compartment. Otherwise there are no degenerative changes. There is no effusion seen. There is no soft tissue abnormality seen. IMPRESSION: Mild medial compartment osteoarthritis. No acute abnormality MACRO: None Signed by: Colin Rhodes 08/17/2024 5:43 PM Dictation workstation: [id number] Procedure Note Radiology, Radiologist, - 08/17/2024 Interpreted By: Colin Rhodes, STUDY: XR KNEE LEFT 4+ VIEWS; ; 08/16/2024 3:50 pm INDICATION: Signs/Symptoms:pain. ,M25.562 Pain in left knee COMPARISON: None. ACCESSION NUMBER(S): [id number] ORDERING CLINICIAN: GUICHO NGUYEN FINDINGS: Left knee, four views There is no fracture. There is no dislocation. Mild osteophytosis in the medial compartment. Otherwise there are no degenerative changes. There is no effusion seen. There is no soft tissue abnormality seen. IMPRESSION: Mild medial compartment osteoarthritis. No acute abnormality MACRO: None Signed by: Colin Rhodes 08/17/2024 5:43 PM Dictation workstation: [id number] Generic External Data Provider IMG XR PROCEDURES Final Result documented in this encounter Visit Diagnoses Not on filedocumented in this encounter Additional Health Concerns Assessment Noted Time PHQ-9 Depression Total Score: 0 06/27/20 24 2:00 PM EDT documented as of this encounter Care Teams Powderer Relationship Specialty Start Date End Date Favian Wyatt MD [address] [address] PCP - General Family Medicine 04/22/23 Favian Wyatt MD [address] [facility] 110 [place] [address] PCP - Devoted 11/07/23 11/06/24 Favian Wyatt MD [address] [facility] 110 [place] [address] PCP - Medical [facility] 11/07/2411/06 Tiana Earl, CHUY [address] [place] [address] Clinical Advocate Family Medicine 12/14/24 01/25/25 Keyla Fabian LPN 112 [facility] 110 [place] [address] 01/25/25 documented as of this encounter
--- OUTSIDE RECORDS SUMMARY | 2025-06-13 15:22 | XMS_ITS | Encounter Summary ---
Author Organization [facility] Address [address] [place] [address] Care Team Providers Care Social Professionals Name Role Phone Favian Wyatt MD Primary Care Provider [phone] Favian Wyatt MD Unavailable Tiana Earl RN Unavailable Keyla Fabian LPN Unavailable Favian Wyatt MD Unavailable Encounter Details Date Type Department Care Team (Late st Contact Info) Description 07/20/2024 Abstract [facility] [place] [facility] [address] [facility] 110 [place] [phone] Favian Wyatt MD 112 [facility] 110 [place] [address] Social History Tobacco Use Types Packs/Day Years [...] and Family Not on file 05/17/2024 Attends Yazidism Services Not on file 05/17 Active Member [...] Recorded Patient Health Questionnaire-2 Score 0 06/27/2024 [facility] of Occupat ional Health - Occupational Stress [...] any time in the past 12 m [facility], were you homeless or living [...] Visit [facility] [place] Shaffer [address] [facility] [address] [place] [address] Favian Wyatt MD [address] [facility] [address] [place] [address] documented as of this encounter Visit Diagnoses Not on filedocumented in this encounter Additional Health Concerns Assessment Noted Time PHQ-9 Depression Total Score: 0 06/27/20 24 2:00 PM EDT documented as of this encounter Care Teams Social Professionals Relationship Specialty Start Date End Date Favian Wyatt MD [address] [facility] [address] [place] [address] PCP - General Family Medicine 04/22/23 Favian Wyatt MD [address] [place] [address] [place] [address] PCP - Devoted 11/07/23 11/06/24 Favian Wyatt MD 112 [facility] 110 [place] [address] PCP - Medical [place] 11/07/2411/06 Tiana Earl, RN [address] [place] [address] Clinical Advocate Family Medicine 12/14/24 01/25/25 Keyla Fabian LPN [address] [address] 01/25/25 documented as of this encounter
--- OUTSIDE RECORDS SUMMARY | 2025-06-13 15:22 | XMS_ITS | Encounter Summary ---
Author Organization [facility] Address [address] [place] [address] Care Team Providers Care Medical Staff Services Coordinator Name Role Phone Favian Wyatt MD Primary Care Provider [phone] Favian Wyatt MD Unavailable Tiana Earl RN Unavailable Keyla Fabian LPN Unavailable Favian Wyatt MD Unavailable Encounter Details Date Type Department Care Team (Late st Contact Info) Description 08/29/2024 Abstract [facility] [place] [facility] 112 [facility] 110 [place] [address] Favian Wyatt MD 112 [facility] 110 [place] [address] Social History Tobacco Use Types Packs/Day Years [...] and Family Not on file 05/17/2024 Attends Scientologist Services Not on file 05/17 Active Member [...] Recorded Patient Health Questionnaire-2 Score 0 06/27/2024 [facility] of Occupat ional Health - Occupational Stress [...] were you homeless or living in a custodial (including now)? No 05/17/2024 Comments Unknown Sex [...] [address] [facility] [address] [place] [address] Favian Wyatt MD [address] [email or web address] [address] [place] [address] documented as of this encounter Visit Diagnoses Not on filedocumented in this encounter Additional Health Concerns Assessment Noted Time PHQ-9 Depression Total Score: 0 06/27/20 24 2:00 PM EDT documented as of this encounter Care Teams Medical Staff Services Coordinator Relationship Specialty Start Date End Date Favian Wyatt MD [address] [email or web address] [address] [place] [address] PCP - General Family Medicine 04/22/23 Favian Wyatt MD [address] [place] [address] [place] [address] PCP - Devoted 11/07/23 11/06/24 Favian Wyatt MD 112 [facility] 110 [place] [address] PCP - Medical [place] 11/07/2411/06 Tiana Earl, RN [address] [place] [address] Clinical Advocate Family Medicine 12/14/24 01/25/25 Keyla Fabian LPN [address] [address] 01/25/25 documented as of this encounter
--- OUTSIDE RECORDS SUMMARY | 2025-06-13 15:22 | XMS_ITS | Encounter Summary ---
Author Organization [facility] Address [address] [place] [address] Care Team Providers Care Crop Production Advisor Name Role Phone Favian Riggins MD Primary Care Provider [phone] Favian Riggins MD Unavailable Tiana Earl RN Unavailable [phone] Keyla Fabian LPN Unavailable Favian Riggins MD Unavailable Encounter Details Date Type Department Care Team (Late st Contact Info) Description 07/11/2024 Clinisync Result Encounter NOMS External Department Unsolicited Mattie Lim, PA [address] [facility] 110 [place] [address] Social History Tobacco Use Types Packs/Day Years [...] Recorded Patient Health Questionnaire-2 Score 0 06/27/2024 [facility] - Occupational [...] any time in the past 12 m [facility], were you homeless or living in a alf (including now)? No 05/17/2024 Comments Unknown Sex [...] Office Visit [facility]S Torey Shaffer 112 [facility] 110 [place] [address] Favian Riggins MD 112 [facility] 110 [place] [address] documented as of this encounter Procedures Procedure Name Priority Date/Time Associated Diagnosis Comments XR DEXA AXIAL SKELETON 07/11/2024 4:13 PM EDT documented in this encounter Results * XR DEXA AXIAL SKELETON (07/11/2024 4:13 PM EDT) Anatomical Region Laterality Modality Other 07/11/2024 4:13 PM EDT Narrative 07/11/2024 4:16 PM EDT The [address] [address] XRay Report Signed Patient: BETTYE MUSE MR#: [id number] : 1955 Acct:[id number] Age/Sex: 69 / F ADM Date: 07/11/24 Loc: MAMMO Attending Dr: MATTIE LIM Ordering Physician: MATTIE LIM Date of Service: 07/11/24 Procedure(s): XR DEXA axial skeleton Accession Number(s): [id number] cc: FAVIAN RIGGINS ; MATTIE LMI [address] [address] Patient Name: BETTYE MUSE MRN: [facility]:[id number] date: 1955 Sex: F Assigned Patient Location: [facility] Current Patient Location: [facility] Accession/Order Number: [id number] Exam Date: 07/11/2024 15:00 Report Date: 07/11/2024 [...] prevention and treatment of osteoporosis. Osteoporos Int. 2021;3310):0462-7425. doi: 10.1007/e52390-151-78499-f. Epub 2021Mar 04. Erratum in: Osteoporos Int. 2021Jun 03;: PMID: 87113354; PMCID: [id number]. Electronically authenticated by: CHRISTIANO JOHNSON Date: 07/11/2024 16:13 Dictated By: Christiano Johnson M.D. Signed By: 07/11/241615 DD/ 12 TD/TT: Marine Fitter: Procedure Note Radiology, Radiologist, - 07/11/2024 [place] [address] XRay Report Signed Patient: BETTYE MUSE R#: [id number] : 1955cct:[id number] Age/Sex: 69 / FADM Date: 07/11/24 Loc: MAMMO Attending Dr: MATTIE LIM Ordering Physician: MATTIE LIM Date of Service: 07/11/24 Procedure(s): XR DEXA axial skeleton Accession Number(s): [id number] cc: FAVIAN RIGGINS KAREN M The [place] [id number] Patient Name: BETTYE MUSE MRN: [facility]:[id number] date: 1955 Sex: F Assigned Patient Location: MAMMO Current Patient Location: MAMMO Accession/Order Number: [id number] Exam Date: 07/11/2024 15:00 Report Date: 07/11/2024 [...] 10-year hip fracture risk >= 3% or [id number] major osteoporosis-related fracture risk >= 20% (i.e., [...] Tom MS, Bren SL, Camila KL, Micky CANCHOLA, Jany KG, AJ,Nicolle ES. The clinician's guide to prevention and treatment of osteoporosis.Osteoporos Int. 2021;33(10):7633-4218. doi: 10.1007/w51929-805-00569-y. Ep. Erratum in: Osteoporos Int. 2021Jun 03;: PMID: [id number]; PMCID: [id number]. Electronically authenticated by: CHRISTIANO JOHNSON Date: 07/11/2024 16:13 Dictated By: Christiano Johnson M.D. Signed By:07/11/241615 DD/ 12 TD/TT: Marine Fitter: Mattie ZAYAS [facility] Final Result documented in this encounter Visit Diagnoses Not on filedocumented in this encounter Additional Health Concerns Assessment Noted Time PHQ-9 Depression Total Score: 0 06/27/20 24 2:00 PM EDT documented as of this encounter Care Teams Crop Production Advisor Relationship Specialty Start Date End Date Favian Riggins MD [address] [address] PCP - General Family Medicine 04/22/23 Favian Riggins MD [address] [facility] 110 [place] [address] PCP - Devoted 11/07/23 11/06/24 Favian Riggins MD [address] [facility] 110 [place] [address] PCP - Medical [place] 11/07/2411/06 Tiana Earl, CHUY [address] [place] [address] Clinical Advocate Family Medicine 12/14/24 01/25/25 Keyla Fabian LPN [address] [place] [address] 01/25/25 documented as of this encounter
--- OUTSIDE RECORDS SUMMARY | 2025-06-13 15:22 | XMS_ITS | Clinical Summary ---
Author Organization [facility] Address [id number] [address] [place] [address] Care Team Providers Care Shoveler Name Role Phone Favian Wyatt MD Primary Care Provider [phone] Allergies Active Allergy Reactions Criticality Noted Date Comments Nalbuphine 07/22/2017 Brexpiprazole 06/04/2021 Tardive Dyskinesia Medications * This document contains information received from the source organization and may not represent a complete record from that organization. atenolol (TENORMIN) 50 mg tablet 7 Active estradiol (ESTRACE) 0.5 mg tablet 7 Active ARMOUR THYROID 90 mg tablet 3 7 Active CALCIUM CARBONATE-VITAMIN D3 ORAL 4 Active metFORMIN (GLUCOPHAGE) 500 mg tablet Take 1 tablet (500 mg total) by mouth in the morning and 1 tablet (500 mg total) in the evening. Take with meals. Active atorvastatin (LIPITOR) 20 mg tablet Take 1 tablet (20 mg total) by mouth in the morning. 1 Active losartan (COZAAR) 100 mg tablet Take 1 tablet (100 mg total) by mouth in the morning. 1 Active FARXIGA 5 mg tablet Take 1 tablet (5 mg total) by mouth in the morning. 2 Active lamoTRIgine (LaMICtal) 150 mg tabletIndications :Major depressive disorder, recurrent episode, moderate (CMS-HCC) TAKE 1 TABLET BY MOUTH IN THE MORNING 90 tablet 3 4 Active ALPRAZolam (XANAX) 0.25 mg tabletIndications :Generalized anxiety disorder Take 1 tablet (0.25 mg total) by mouth daily as needed for anxiety. 30 tablet 4 Active traZODone (DESYREL) 50 mg tablet Take 2 tablets (100 mg total) by mouth nightly. 180 tablet 3 4 Active valbenazine (INGREZZA) 80 mg capsuleIndication s:Dyskinesia, tardive Take 1 capsule by mouth once daily. 30 capsule 11 5 Active venlafaxine XR (EFFEXOR-XR) 150 mg 24 hr capsule Take 2 capsules (300 mg total) by mouth in the morning. 180 capsule 3 5 Active gabapentin (NEURONTIN) 300 mg capsuleIndication s:Parkinsonism, unspecified Parkinsonism type (CMS-HCC),Involun tary movements,Tremors of nervous system Take 1 capsule (300 mg total) by mouth 3 (three) times a day. 90 capsule 5 5 Active Active Problems Problem Noted Date [...] Team Description 04/15/2025 2:30 PM EDT Telemedicine [facility] Neurology, A Department of [facility] [address] [facility] [address] [place] [address] Erika Huynh MD Involuntary movements (Primary Dx); Tardive dyskinesia; Parkinsonism, unspecified Parkinsonism type (CMS-HCC); Dysphagia, unspecified type; Gait instability; Major depressive disorder, recurrent episode, moderate (CMS-HCC); Generalized anxiety disorder; Dependent personality disorder (CMS-HCC); Chronic idiopathic constipation; Tremors of nervous system 03/19/2025 Travel from Last 3 Months Social History Tobacco [...] Completed 03/11/2022, [employer] Not on file Insurance [address] [place] [address] [employer] MED[employer] Care Teams Shoveler Relationship Specialty Start Date End Date [place] [address] [place] [address] PCP - General 06/02/17
--- OUTSIDE RECORDS SUMMARY | 2025-06-13 15:22 | XMS_ITS | Encounter Summary ---
Author Organization [facility] Address [address] [place] [address] Care Team Providers Care Double Bass Player Name Role Phone Favian Riggins MD Primary Care Provider [phone] Favian Riggins MD Unavailable Tiana Earl RN Unavailable [phone] Keyla Fabian LPN Unavailable Favian Riggins MD Unavailable Encounter Details Date Type Department Care Team (Late st Contact Info) Description 07/13/2024 Clinisync Result Encounter NOMS External Department Unsolicited Wyatt Lim, PA [address] [facility] 110 [place] [address] Social History Tobacco Use Types Packs/Day Years [...] and Family Not on file 05/17/2024 Attends [employer] [facility] Not on file 05/17 Active Member [...] Recorded Patient Health Questionnaire-2 Score 0 06/27/2024 [facility] Health - [...] any time in the past 12 m [facility], were you homeless or living in a assisted (including now)? No 05/17/2024 Comments Unknown Sex [...] Office Visit [facility] [place] Shaffer 112 [facility] 110 [place] [address] Favian Riggins MD 112 [facility] 110 [place] [address] documented as of this encounter Procedures Procedure Name Priority Date/Time Associated Diagnosis Comments MM TOMOSYNTHESIS SCREENING BI 07/13/2024 2:39 PM EDT documented in this encounter Results * MM TOMOSYNTHESIS SCREENING BI (07/13/2024 2:39 PM EDT) Anatomical Region Laterality Modality Other 07/13/2024 2:39 PM EDT Narrative 07/13/2024 2:40 PM EDT The [address] [address] Mammography Report Signed Patient: BETTYE MUSE MR#: [id number] : 1955 Acct:[id number] Age/Sex: 69 / F ADM Date: 07/11/24 Loc: MAMMO Attending Dr: WYATT LIM Ordering Physician: WYATT LIM Results: Date of Service: 07/11/24 Follow Up: Procedure(s): MM tomosynthesis screening BI Accession Number(s): [id number] cc: FAVIAN RIGGINS ; WYATT LIM Patient Name: BETTYE MUSE MR#: [id number] : 1955 Exam Date: 07/11/2024 Ordering Doctor: [...] bone cancer at age 81. LOCATION: The [facility] BREAST COMPOSITION: The breasts are heterogeneously [...] Signed By: 07/13/24 1440 DD/ 1439 TD/TT: Soa Engineer: Procedure Note Radiology, Radiologist, - 07/13/2024 [place] [address] Mammography Report Signed Patient: BETTYE MUSE LMR#: [id number] : 1955cct:[id number] Age/Sex: 69 / FADM Date: 07/11/24 Loc: MAMMO Attending Dr: WYATT LIM Ordering Physician: WYATT LIM MResults: Date of Service: 07/11/24Follow Up: Procedure(s): MM tomosynthesis screening BI Accession Number(s): [id number] cc: FAVIAN RIGGINS ; WYATT LIM Patient Name: BETTYE MUSE MR#: [id number] : 1955 Exam Date: 07/11/2024 Ordering Doctor: [...] bone cancer at age 81. LOCATION: The [facility] BREAST COMPOSITION: The breasts are heterogeneously [...] M.D. Signed By:07/13/24 1440 DD/ 1439 TD/TT: Soa Engineer: Wyatt ZAYAS [facility] Final Result documented in this encounter Visit Diagnoses Not on filedocumented in this encounter Additional Health Concerns Assessment Noted Time PHQ-9 Depression Total Score: 0 06/27/20 24 2:00 PM EDT documented as of this encounter Care Teams Double Bass Player Relationship Specialty Start Date End Date Favian Riggins MD [address] [facility] 110 [place] [address] PCP - General Family Medicine 04/22/23 Favian Riggins MD [address] [facility] 110 [place] [address] PCP - Devoted 11/07/23 11/06/24 Favian Riggins MD [address] [facility] 110 [place] [address] PCP - Medical [facility] 11/07/2411/06 Tiana Earl, RN [address] [place] [address] Clinical Advocate Family Medicine 12/14/24 01/25/25 Keyla Fabian LPN [address] [facility] 110 [place] [address] 01/25/25 documented as of this encounter
--- OUTSIDE RECORDS SUMMARY | 2025-06-13 15:22 | XMS_ITS | Clinical Summary ---
Author Organization [facility] Address [address] [place] [address] Care Team Providers Care Ski Instructor Name Role Phone Unavailable Primary Care Provider [...]
--- OUTSIDE RECORDS SUMMARY | 2025-06-13 15:22 | XMS_ITS | Encounter Summary ---
Author Organization [facility] Address [address] [place] [address] Care Team Providers Care Central Office Inspector Name Role Phone Favian Riggins MD Primary Care Provider [phone] Favian Riggins MD Unavailable Tiana Earl RN Unavailable [phone] Keyla Fabian LPN Unavailable Favian Riggins [...] and Family Not on file 05/17/2024 Attends [employer] Not on file 05/17 Active Member [...] Recorded Patient Health Questionnaire-2 Score 0 06/27/2024 [facility] - Occupational Stress Questionnaire Answer [...] time in the past 12 m [facility], were you homeless or living in [...] 3:30 PM EDT Office Visit [facility] 112 [facility] 110 [place] [address] Favian Riggins MD 112 [facility] 110 [place] [address] documented as of this encounter Procedures Procedure Name Priority Date/Time Associated Diagnosis Comments MR KNEE LT WO CON 09/05/2024 6:0 2 AM EDT documented in this encounter Results * MR KNEE LT WO CON (09/05/2024 6:02 AM EDT) Anatomical Region Laterality Modality Other 09/05/2024 6:02 AM EDT Narrative 09/05/2024 6:04 AM EDT The [address] [address] Magnetic Resonance Report Signed Patient: BETTYE MUSE MR#: [id number] : 1955 Acct:[id number] Age/Sex: 69 / F ADM Date: 09/03/24 Loc: MRI Attending Dr: Non-Staff Physician Kimberly Ordering Physician: Soraya HinkleStaff Kimberly Date of Service: 09/03/24 Procedure(s): MR knee LT wo con Accession Number(s): [id number] cc: FAVIAN RIGGINS ; Physician,Non-Staff Kimberly The [place] [id number] Patient Name: BETTYE MUSE MRN: [id number] date: 1955 Sex: F Assigned Patient Location: MRI Current Patient Location: Accession/Order Number: [id number] Exam Date: 09/03/2024 14:45 Report Date: 09/05/2024 [...] M.D. Signed By: 09/05/24603 DD/ 1 TD/TT: Senior Power Scheduler: Procedure Note Radiology, Radiologist, MD - 09/05/2024 [place] [address] Magnetic Resonance Report Signed Patient: BETTYE MUSE LMR#: [id number] : 1955cct:[id number] Age/Sex: 69 / FADM Date: 09/03/24 Loc: MRI Attending Dr: Non-Staff Physician Harris Ordering Physician: Kenzie Hinkle M.D. Date of Service: 09/03/24 Procedure(s): MR knee LT wo con Accession Number(s): [id number] cc: FAVIAN RIGGINS ; PhysicianKenzie M.D. [place] [address] Patient Name: BETTYE MUSE MRN: [id number] date: 1955 Sex: F Assigned Patient Location: MRI Current Patient Location: Accession/Order Number: [id number] Exam Date: 09/03/2024 14:45 Report Date: 09/05/2024 [...] Johnson M.D. Signed By:09/05/24603 DD/ 1 TD/TT: Senior Power Scheduler: us Generic External Data Provider [facility] Final Result documented in this encounter Visit Diagnoses Not on filedocumented in this encounter Additional Health Concerns Assessment Noted Time PHQ-9 Depression Total Score: 0 06/27/20 24 2:00 PM EDT documented as of this encounter Care Teams Central Office Inspector Relationship Specialty Start Date End Date Favian Riggins MD [address] [facility] 110 [place] [address] PCP - General Family Medicine 04/22/23 Favian iRggins MD [address] [facility] 110 [place] [address] PCP - Devoted 11/07/23 11/06/24 Favian Riggins MD [address] [facility] 110 [place] [address] PCP - Medical [facility] 11/07/2411/06 Tiana Earl, RN [address] [place] [address] Clinical Advocate Family Medicine 12/14/24 01/25/25 Keyla Fabian LPN [address] [facility] 110 [place] [address] 01/25/25 documented as of this encounter
--- OUTSIDE RECORDS SUMMARY | 2025-06-13 15:22 | XMS_ITS | Encounter Summary ---
Author Organization [facility] Address [address] [place] [address] Care Team Providers Care Tank Farm Attendant Name Role Phone Favian Wyatt MD Primary Care Provider [phone] Favian Wyatt MD Unavailable Tiana Earl RN Unavailable Keyla Fabian PRODUCTION ILLUSTRATOR Unavailable Favian Wyatt MD Unavailable Encounter Details Date Type Department Care Team (Late st Contact Info) Description 02/06/2024 Abstract NOMDaniel Shaffer [address] [facility] 110 [place] [id number] Favian Wyatt MD 112 [facility] 110 [place] [address] Social History Tobacco Use Types Packs/Day Years [...] 08/05/2025 3:30 PM EDT Office Visit NOMDaniel Meekse [address] [facility] 110 [place] [address] Favian Wyatt MD [address] [facility] 110 [place] [address] documented as of this encounter Visit Diagnoses Not on filedocumented in this encounter Additional Health Concerns Assessment Noted Time PHQ-9 Depression Total Score: 12 05/24/2 023 3:58 PM EDT documented as of this encounter Care Teams Tank Farm Attendant Relationship Specialty Start Date End Date Favian Wyatt MD [address] [facility] 110 [place] [address] PCP - General Family Medicine 04/22/23 Favian Wyatt MD [address] [facility] 110 [place] [address] PCP - Devoted 11/07/23 11/06/24 Favian Wyatt MD [address] [facility] 110 [place] [address] PCP - Medical [place] 11/07/2411/06 Tiana Earl, RN [address] [facility] [place] [address] Clinical Advocate Family Medicine 12/14/24 01/25/25 Keyla Fabian LPN [address] [facility] 110 [place] [address] 01/25/25 documented as of this encounter
--- OUTSIDE RECORDS SUMMARY | 2025-06-13 15:22 | XMS_ITS | Encounter Summary ---
Author Organization [facility] Address [address] [place] [address] Care Team Providers Care Malted Milk Masher Name Role Phone Favian Wyatt MD Unavailable Favian Wyatt MD Primary Care Provider [phone] Favian Wyatt MD Unavailable Tiana Earl RN Unavailable Keyla Fabian DUST COLLECTOR TREATER Unavailable Favian Wyatt MD Unavailable Encounter Details Date Type Department Care Team (Late st Contact Info) Description 09/16/2023 Abstract NOMDaniel Shaffer 112 [facility] 110 [place] [address] Favian Wyatt MD 112 [facility] 110 [place] [address] Social History Tobacco Use Types Packs/Day Years [...] 08/05/2025 3:30 PM EDT Office Visit NOMDaniel Shaffer [address] [facility] 110 [place] [address] Favian Wyatt MD [address] [facility] 110 [place] [address] documented as of this encounter Visit Diagnoses Not on filedocumented in this encounter Additional Health Concerns Assessment Noted Time PHQ-9 Depression Total Score: 12 05/24/ 023 3:58 PM EDT documented as of this encounter Care Teams Malted Milk Masher Relationship Specialty Start Date End Date Favian Wyatt MD [address] [facility] 110 [place] [address] PCP - [place] 11/07/21 11/06/23 Favian Wyatt MD [address] [facility] [address] [place] [address] PCP - General Family Medicine 04/22/23 Favian Wyatt MD [address] [facility] [address] [place] [address] PCP - Devoted 11/07/23 11/06/24 Faivan Wyatt MD [address] [facility] [address] [place] [address] PCP - Medical [place] 11/07/2411/06 Tiana Earl, CHUY [address] [place] [address] Clinical Advocate Family Medicine 12/14/24 01/25/25 Keyla Fabian LPN [address] [facility] 110 [place] [address] 01/25/25 documented as of this encounter
--- OUTSIDE RECORDS SUMMARY | 2025-06-13 15:22 | XMS_ITS ---
Author Organization [facility] Address [address] [place] [address] Care Team Providers Care Remarketing Manager Name Role Phone Favian Wyatt MD Primary Care Provider [phone] Keyla Fabian LPN Unavailable Favian Wyatt MD Unavailable Chronic Care Management (CCM) Status:Enrolled (Active) Start date:04/19/2023 Enrollment date:05/11/2023 Enrollment reason:Identified using claims or encounter data Overview 02/06/24, 11:43 AM - Yuli Tuesday, NNAMDI- Patient gives verbal consent to be enrolled in CCM Program and understands there could be a bill for this service. Case Team Name Relationship Phone Keyla Fabian LPN(Responsible Staff) [phone] Continued Care and Services Coordination
--- OUTSIDE RECORDS SUMMARY | 2025-06-13 15:22 | XMS_ITS | Encounter Summary ---
Author Organization [facility] Address [address] [place] [address] Care Team Providers Care Cripple Worker Name Role Phone Favian Wyatt MD Primary Care Provider [phone] Tiana Earl RN Unavailable Keyla Fabian BURIAL AGENT Unavailable Favian Wyatt MD Unavailable Encounter Details Date Type Department Care Team (Late st Contact Info) Description 01/02/2025 Abstract [facility] [address] [facility] 110 [place] [address] Favian Wyatt MD 112 [facility] 110 [place] [address] Social History Tobacco Use Types Packs/Day Years [...] and Family Not on file 05/17/2024 Attends [employer] Not on file 05/17 Active Member [...] Recorded Patient Health Questionnaire-2 Score 0 06/27/2024 [facility] of Occupat ional Health [...] were you homeless or living in a half-way (including now)? No 05/17/2024 Comments Unknown Sex [...] Visit NOMS Torey Shaffer [address] [address] Favian Wyatt MD [address] [facility] 110 [place] [address] documented as of this encounter Visit Diagnoses Not on filedocumented in this encounter Additional Health Concerns Assessment Noted Time PHQ-9 Depression Total Score: 0 06/27/20 24 2:00 PM EDT documented as of this encounter Care Teams Cripple Worker Relationship Specialty Start Date End Date Favian Wyatt MD [address] [facility] 110 [place] [address] PCP - General Family Medicine 04/22/23 Favian Wyatt MD [address] [facility] 110 [place] [address] PCP - Medical [place]ILY 11/07/2411/06 Tiana Earl, CHUY [address] [place], [place] [address] Clinical Advocate Family Medicine 12/14/24 01/25/25 Keyla Fabian LPN 112 [place] [address] 01/25/25 documented as of this encounter
--- OUTSIDE RECORDS SUMMARY | 2025-06-13 15:22 | XMS_ITS | Encounter Summary ---
Author Organization [facility] Address [address] [place] [address] Care Team Providers Care Learning And Development Assistant Name Role Phone Favian Wyatt MD Primary Care Provider [phone] Favian Wyatt MD Unavailable Tiana Earl RN Unavailable [phone] Keyla Fabian LPN Unavailable Favian Wyatt MD Unavailable Encounter Details Date Type Department Care Team (Late st Contact Info) Description 07/04/2024 Abstract [facility] [place] [facility] 112 [facility] 110 [place] [id number] Favian Wyatt MD 112 [facility] 110 [place] [address] Social History Tobacco Use Types Packs/Day Years [...] and Family Not on file 05/17/2024 Attends Denominational Services Not on file 05/17 Active Member [...] Recorded Patient Health Questionnaire-2 Score 0 06/27/2024 [facility] Occupat ional [facility] - Occupational Stress [...] any time in the past 12 m [facility], were you homeless or living in [...] Visit [facility] [place] [facility] [address] [facility] [address] [place] [address] Favian Wyatt MD [address] [facility] [address] [facility] [address] [place] [address] documented as of this encounter Visit Diagnoses Not on filedocumented in this encounter Additional Health Concerns Assessment Noted Time PHQ-9 Depression Total Score: 0 06/27/20 24 2:00 PM EDT documented as of this encounter Care Teams Learning And Development Assistant Relationship Specialty Start Date End Date Favian Wyatt MD [address] [facility] [address] [facility] [address] [place] [address] PCP - General Family Medicine 04/22/23 Favian Wyatt MD [address] [place] [address] [place] [address] PCP - Devoted 11/07/23 11/06/24 Favian Wyatt MD 112 [facility] 110 [place] [address] PCP - Medical [place] 11/07/2411/06 Tiana Earl, RN [address] [place] [address] Clinical Advocate Family Medicine 12/14/24 01/25/25 Keyla Fabian LPN [address] [address] 01/25/25 documented as of this encounter
--- OUTSIDE RECORDS SUMMARY | 2025-06-13 15:22 | XMS_ITS | Encounter Summary ---
Author Organization [facility] Address [address] [place] [address] Care Team Providers Care Brand Strategist Name Role Phone Favian Wyatt MD Primary Care Provider [phone] Keyla Fabian LPN Unavailable Favian Wyatt MD [...] and Family Not on file 05/17/2024 Attends Synagogue Services Not on file 05/17 Active Member [...] Recorded Patient Health Questionnaire-2 Score 0 01/31/2025 [facility] - Occupational Stress Questionnaire Answer Date Recorded [...] any time in the past 12 m [facility], were you homeless or living in a penitentiary (including now)? No 05/17/2024 Comments Unknown Sex [...] Visit [facility] [place] [facility] [address] [place] [address] [place] [address] Favian Wyatt MD [address] [place] [address] [place] [address] documented as of this encounter Procedures Procedure Name Priority Date/Time Associated Diagnosis Comments MR BRAIN WO CONTRAST 02/22/2025 3:28 PM EDT documented in this encounter Results * MR brain wo contrast (02/22/2025 3:28 PM EDT) Anatomical Region Laterality Modality Brain Magnetic Resonan ce 02/22/2025 3:28 PM EDT Narrative 02/22/2025 3:27 PM EDT THIS EXAM WAS PERFORMED AT [facility] MR BRAIN WO CONT 02/20/2025 1:24 PM INDICATION: Parkinsonism, unspecified Parkinsonism type (CMS-HCC); Gait instability; Involuntary movements COMPARISON: None TECHNIQUE: Multiplanar multisequence MR images of the brain were obtained without intravenous contrast. Volumetric 3-D series were sent for [employer] age-related atrophy report, this is generated at an independent workstation, by a third democrat vendor, to further assess anatomy. Images quality [...] - 02/22/2025 THIS EXAM WAS PERFORMED AT [facility] BRAIN WO CONT 02/20/2025 1:24 PM INDICATION: Parkinsonism, unspecified Parkinsonism type (CMS-HCC); Gaitinstability; Involuntary movements COMPARISON: None TECHNIQUE: Multiplanar multisequence MR images of the brain were obtainedwithout intravenous contrast. Volumetric 3-D series were sent for [employer] age-related atrophy report,this is generated at an independent workstation, by a third democrat vendor,to further assess anatomy. Images quality controlled [...] documented as of this encounter Care Teams Brand Strategist Relationship Specialty Start Date End Date Favian Wyatt MD [address] [facility] [facility] 110 [place] [address] PCP - General Family Medicine 04/22/23 Favian Wyatt MD [address] [facility] [facility] 110 [place] [address] PCP - Medical [facility] 11/07/2411/06 Keyla Fabian LPN [address] [facility] 110 [place] [address] 01/25/25 documented as of this encounter
--- OUTSIDE RECORDS SUMMARY | 2025-06-13 15:22 | XMS_ITS | Encounter Summary ---
Author Organization [facility] Address [address] [place] [address] Care Team Providers Care Thermometer Tester Name Role Phone Favian Wyatt MD Primary Care Provider Favian Wyatt MD Unavailable Tiana Earl RN Unavailable [phone] Keyla Fabian FERMENTOLOGIST Unavailable Favian Wyatt MD Unavailable Encounter Details Date Type Department Care Team (Late st Contact Info) Description 02/06/2024 Abstract [facility] 112 [facility] 110 [place] [phone] Favian Wyatt MD 112 [facility] 110 [place] [address] Social History Tobacco Use Types Packs/Day Years [...] Office Visit [facility] [address] [facility] 110 [place] [address] Favian Wyatt MD [address] [facility] 110 [place] [address] documented as of this encounter Visit Diagnoses Not on filedocumented in this encounter Additional Health Concerns Assessment Noted Time PHQ-9 Depression Total Score: 12 05/24/2 023 3:58 PM EDT documented as of this encounter Care Teams Thermometer Tester Relationship Specialty Start Date End Date Favian Wyatt MD [address] [facility] [address] [place] [address] PCP - General Family Medicine 04/22/23 Favian Wyatt MD [address] [facility] [address] [place] [address] PCP - Devoted 11/07/23 11/06/24 Favian Wyatt MD [address] [facility] [address] [place] [address] PCP - Medical [place] 11/07/2411/06 Tiana Earl, RN [address] [facility] [place] [address] Clinical Advocate Family Medicine 12/14/24 01/25/25 Keyla Fabian LPN [address] [facility] [address] [place] [address] 01/25/25 documented as of this encounter
[2025-06-13 15:57] LABS: Anion Gap 7.8; Blood Urea Nitrogen 13.0 mg/dL (7.0-18.0); Calcium 9.2 mg/dL (8.5-10.1); Carbon Dioxide 33.7 mmol/L (21.0-32.0); Chloride 104 mmol/L (98-107); Estimated GFR (African America 52 (>=60 mL/min/1.73m^2); Estimated GFR (Non-African Ame 43 (>=60 mL/min/1.73m^2); Glucose 81 mg/dL (74-106); Potassium 3.5 mmol/L (3.5-5.1); Sodium 142 mmol/L (136-145)
== END 2025-06-13 15:17 | disposition home or self-care (01) ==
LOC: LAB 15:17
PROVIDERS: PCP Family Medicine; Visit Provider Physician Assistant
DX: E87.6 Hypokalemia (principal); N18.31 Chronic kidney disease, stage 3a
CPT/HCPCS: 36415; 80048

== ENCOUNTER 2025-08-06 14:59 | Outpatient (OUT) | payer MEDICARE, SELFPAY ==
--- NOTE | 2025-08-06 15:03 | MM_ITS ---
Patient Name: TRENTON DONOVAN MR#: [id number] : 1955 Exam Date: 08/06/2025 Ordering Doctor: DR WYATT ZAYAS RADIOLOGY REPORT PROCEDURE: MM TOMOSYNTHESIS SCREENING BI COMPARISON: MM TOMOSYNTHESIS SCREENING BI, 07/11/2024. MG MAMM SCREEN 3D VICTORINA CAD, 07/24/2021. MG MAMM SCREEN VICTORINA W CAD, 04/22/2020. MG MAMM SCREEN VICTORINA W CAD, 10/19/2018. INDICATIONS: Screening Calculator Name NCI Breast Cancer Risk Assessment Tool 5 Year Breast Cancer Risk 3.20% Lifetime Breast Cancer Risk 9.70% Personal Breast Cancer No Personal Ovarian Cancer No Treatments None Family Cancers Mother with breast cancer at age 81; Aunt-maternal with lung cancer at age 70; Aunt-maternal with colon cancer at age 80; Grandmother-paternal with bone cancer at age 80. LOCATION: [facility] BREAST COMPOSITION: The breasts are heterogeneously dense, which may obscure small masses. FINDINGS: RIGHT BREAST: No significant suspicious finding. There are benign appearing calcifications. There is a similar focal asymmetry. There are bilateral breast implants which are intact and unchanged. Benign appearing lymph nodes along the chest wall. LEFT BREAST: No significant suspicious finding. There are benign appearing calcifications. There is a similar focal asymmetry. There are bilateral breast implants which are intact and unchanged. Benign appearing lymph nodes are noted along the chest wall. DIAGNOSTIC CATEGORY 2--BENIGN FINDING. NO CHANGE FROM COMPARISON. RECOMMENDATIONS: ROUTINE MAMMOGRAM AND CLINICAL EVALUATION IN 12 MONTHS. Dictated by: Casey Valencia MD on 08/06/2025 at 16:09 Approved by: Casey Valencia MD on 08/06/2025 at 16:11
== END 2025-08-06 15:00 | disposition home or self-care (01) ==
LOC: MAMMO 14:59
PROVIDERS: PCP Family Medicine; Visit Provider Physician Assistant
DX: Z12.31 Encounter for screening mammogram for malignant neoplasm of breast (principal); Z80.3 Family history of malignant neoplasm of breast; Z80.1 Family history of malignant neoplasm of trachea, bronchus and lung; Z80.0 Family history of malignant neoplasm of digestive organs; Z80.8 Family history of malignant neoplasm of other organs or systems
CPT/HCPCS: 77063; 77067